=== PATIENT | female | born 1975 | race Caucasian/White ===

== ENCOUNTER 2016-11-08 10:00 | Emergency (ER) | payer OTHER ==
[2016-11-08 10:15] VITALS: BP 131/79; PULSE 91; BMI 21.2
--- NOTE | 2016-11-08 10:20 | PDOC ---
History of Present Illness - History of Present Illness Initial Comments: 11/08/16 10:37 The patient is a 41 year old female with a past medical hx of severe MR, MRSA, nonverbal at baseline who presents to the ED accompanied by family members for evaluation of a possible UTI. Per patients family members, she has been acting as if she is in pain since last night. They report she has had rapid weight loss recently. Family members report she has a hx of UTIs and is acting how she has acted in the past when she has had UTIs. The history is limited secondary to patients MR and nonverbal. <Tierra Ramirez - Last Filed: 11/08/16 10:38> <Moses Chase - Last Filed: 11/08/16 16:17> - General Chief Complaint: Pain Stated Complaint: POSSIBLE UTI Time Seen by Provider: 11/08/16 10:20 Past History <Tierra Ramirez - Last Filed: 11/08/16 10:38> - Past Medical History Anemia: No Asthma: No Cancer: No Cardiac Disorders: No CVA: No COPD: No CHF: No Dementia: No Diabetes: No GI Disorders: No Disorders: No HTN: No Hypercholesterolemia: No Liver Disease: No Psychiatric Problems: Yes (self aggressive behavior) Seizures: Yes (convulsive epilepsy,) Thyroid Disease: No Other medical history: profmattie and physical disab. encephalitis, cataract ,blind, - Surgical History Abdominal Surgery: No Appendectomy: No Cardiac Surgery: No Cholecystectomy: No Lung Surgery: No Neurologic Surgery: Yes Orthopedic Surgery: No - Immunization History Immunization Up to Date: Yes - Psycho/Social/Smoking Cessation Hx Anxiety: No Suicidal Ideation: No Smoking Status: No Smoking History: Never smoked Have you smoked in the past 12 months: No Number of Cigarettes Smoked Daily: 0 Information on smoking cessation initiated: No Hx Alcohol Use: No Drug/Substance Use Hx: No Substance Use Type: None Hx Substance Use Treatment: No <Moses Chase - Last Filed: 11/08/16 16:17> - Past Medical History Allergies/Adverse Reactions: Allergies Allergy/AdvReac Type Severity Reaction Status Date / Time wheat dextrin Allergy Verified 11/08/16 10:09 [From [employer] (wheat dextrin)] Home Medications: Ambulatory Orders Ammonium Lactate Lotion [Lac-Hydrin 12% Lotion -] 1 applic TP BID 08/29/16 Benztropine Mesylate 1 mg PO DAILY 08/29/16 Carbamazepine [Tegretol -] 400 mg PO BID 08/29/16 Clomipramine HCl [Anafranil] 100 mg PO AM 08/29/16 Clomipramine HCl [Anafranil] 150 mg PO HS 08/29/16 Fluphenazine HCl 6 mg PO DAILY 08/29/16 Lamotrigine 400 mg PO HS 08/29/16 Pedi Multivit #22/Vit D3/Vit K [Multivitamins Chewables Tablet] 1 each PO DAILY 08/29/16 Sulfamethoxazole/Trimethoprim [Bactrim Ds -] 1 tab PO BID 08/29/16 Cephalexin [Keflex Suspension] 500 mg PO TID #300 ml 08/30/16 Cephalexin [Keflex Suspension] 500 mg PO TID #300 ml 08/30/16 Polyethylene Glycol 3350 [Miralax (For Bowel Prep) -] 17 gm PO DAILY #1 bottle 11/08/16 Review of Systems - Review of Systems Able to Perform ROS?: No (patient is nonverbal) <Tierra Ramirez - Last Filed: 11/08/16 10:38> *Physical Exam - Vital Signs Last Vital Signs Temp Pulse Resp BP Pulse Ox 98.3 F 91 H 18 131/79 100 11/08/16 10:29 11/08/16 10:09 11/08/16 10:09 11/08/16 10:09 11/08/16 10:09 - Physical Exam Comments: 11/08/16 10:39 GENERAL: Nonverbal. Well developed, well nourished. Awake and alert. HEENT: Normocephalic, atraumatic. PERRLA, EOMI. No conjunctival pallor. Sclera are non- icteric. Moist mucous membranes. Oropharynx is clear. NECK: Supple. Full ROM. No JVD. Carotid pulses 2+ and symmetric, without bruits. No thyromegaly. No lymphadenopathy. CARDIOVASCULAR: Regular rate and rhythm. No murmurs, rubs, or gallops. Distal pulses are 2+ and symmetric. PULMONARY: No evidence of respiratory distress. Lungs clear to auscultation bilaterally. No wheezing, rales or rhonchi. ABDOMINAL: Soft. Non-tender. Non-distended. No rebound or guarding. No organomegaly. Normoactive bowel sounds. MUSCULOSKELETAL Normal range of motion at all joints. No bony deformities or tenderness. No CVA tenderness. EXTREMITIES: No cyanosis. No clubbing. No edema. No calf tenderness. SKIN: Warm and dry. Normal capillary refill. No rashes. No jaundice. NEUROLOGICAL: Alert, awake. Patient is nonverbal at baseline. <Tierra Ramirez - Last Filed: 11/08/16 10:38> - Vital Signs Last Vital Signs Temp Pulse Resp BP Pulse Ox 91 H 18 131/79 100 11/08/16 10:09 11/08/16 10:09 11/08/16 10:09 11/08/16 10:09 <Moses Chase - Last Filed: 11/08/16 16:17> ED Treatment Course - LABORATORY CBC & Chemistry Diagram: 11/08/16 11:35 11/08/16 11:35 <Moses Chase - Last Filed: 11/08/16 16:17> *DC/Admit/Observation/Transfer - Attestations Scribe Attestion: 11/08/16 10:37 Documentation prepared by Tierra Ramirez, acting as medical equipment repair technician for Moses Chase MD <Tierra Ramirez - Last Filed: 11/08/16 10:38> - Discharge Dispostion Admit: No <Moses Chase - Last Filed: 11/08/16 16:17> Diagnosis at time of Disposition: Constipation, Chronic interstitial cystitis - Discharge Dispostion Disposition: [facility] Condition at time of disposition: Stable - Prescriptions Prescriptions: Polyethylene Glycol 3350 [Miralax (For Bowel Prep) -] 17 gm PO DAILY #1 bottle - Referrals Referrals: Adrien Hernandez MD [Staff Physician] - - Patient Instructions Additional Instructions: Patient's pain seems to stem most likely from her constipation. Patient will need to take miralax daily to help with constipation. The patient has also had unintentional weight loss (despite normal appetite) and should have GI evaluation for possible EGD/colonoscopy and weight loss evaluation as outpatient. If the patient develops fevers, chills, altered mental status please bring her to the ER. Please follow up with Dr. Gross within a week.
[2016-11-08 10:29] VITALS: TEMP 98.3
[2016-11-08] MEDS ORDERED: SODIUM CHLORIDE 1,000 ML IV SCH (10:30)
[2016-11-08] MEDS ORDERED: morphine CARPU-JECT 4 MG/1 ML DISP.SYRIN IVPUSH ONE (11:20)
[2016-11-08 11:48] LABS: BASOPHIL 0.6 % (0-2.0); EOSINOPHIL 4.8 % (0-4.5); MCH 29.2 pg (25.7-33.7); MCHC 33.2 g/dl (32.0-36.0); MEAN CELL VOLUME 87.9 fl (80-96); MEAN PLT VOLUME 10.6 fl (7.5-11.1); NEUTROPHILS 74.6 % (42.8-82.8); PLATELET COUNT 197 K/MM3 (134-434); RDW 13.5 % (11.6-15.6); WHITE BLOOD COUNT 9.6 K/mm3 (4.0-10.0)
[2016-11-08 11:50] LABS: URINE APPEARANCE CLEAR; URINE BILIRUBIN NEGATIVE (NEGATIVE); URINE BLOOD NEGATIVE (NEGATIVE); URINE COLOR YELLOW; URINE GLUCOSE (UA) NEGATIVE (NEGATIVE); URINE KETONE NEGATIVE (NEGATIVE); URINE LEUK ESTERASE NEGATIVE (NEGATIVE); URINE NITRITE POSITIVE (NEGATIVE); URINE PROTEIN NEGATIVE (NEGATIVE); URINE UROBILINOGEN NEGATIVE E.U./dl (0.2-1.0)
[2016-11-08 11:58] LABS: URINE BACTERIA RARE /hpf (NONE SEEN); URINE MUCUS RARE; URINE RBC 1 /hpf (0-3); URINE WBC 1 /hpf (3-5)
[2016-11-08 12:04] LABS: ALBUMIN 3.2 g/dl (3.4-5.0); ANION GAP 9 (8-16); BILIRUBIN,TOTAL 0.1 mg/dL (0.2-1.0); CALCIUM 8.1 mg/dL (8.5-10.1); CO2 29 mmol/L (21-32); CREATININE 0.6 mg/dL (0.55-1.02); GLUCOSE,RANDOM 119 mg/dL (74-106); SGOT/AST 22 U/L (15-37); SGPT/ALT 27 U/L (12-78); TOT PROT 6.3 g/dl (6.4-8.2)
[2016-11-08 12:05] LABS: ALK PHOS 97 U/L (45-117)
[2016-11-08] MEDS ORDERED: morphine CARPU-JECT 4 MG/1 ML DISP.SYRIN ONE (12:20)
[2016-11-08] MEDS ORDERED: SODIUM CHLORIDE 1,000 ML IV STA (12:30)
[2016-11-08] MEDS ORDERED: CEFTRIAXONE 1,000 MG in DEXTROSE 5%-WATER - 50 ML IVPB ONE (12:54)
[2016-11-08] MEDS ORDERED: CEFTRIAXONE 50 ML ONE (13:30)
[2016-11-08] MEDS ORDERED: LACTULOSE 20 GM/30 ML UDC (FOR ORAL USE ONLY) PO ONE (14:30)
[2016-11-08] MEDS ORDERED: MINERAL OIL ENEMA 133 ML ENEMA PR ONE (14:30)
--- NOTE | 2016-11-08 14:40 | PN ---
Teaching Attending Note Name of Resident: Charly Calles ATTENDING PHYSICIAN STATEMENT I saw and evaluated the patient. I reviewed the resident's note and discussed the case with the resident. I agree with the resident's findings and plan as documented. SUBJECTIVE: seen and evaluated at the bedside OBJECTIVE: non-verbal due to mental retardation; rocking back and forth and occasionally hitting herself in the head ASSESSMENT AND PLAN: 41 year old woman with severe mental retardation (non-verbal) sent from [facility] for evaluation of supposed pain -[facility] staff who accompanied pt state that pt's behavior over the past day or so is indicative of when she is in pain -was treated with ceftriaxone by ED for supposed UTI as pt has had them in the past -spoke with [employer] at [facility] who stated that pt was recently treated with abx for uti as at that time pt had elevated WBC and cloudy appearance to urine -at this time pt has no fever, no White count, and U/A is not suggestive of UTI -on further history [facility] staff who accompanied pt state that pt has had bad constipation for the past year which does not alleviate unless enema is given; pt has mild distention and since this is the only abnormality found on exam assumption is that this may be cause of discomfort -on further history, pt has had weight loss with dark stools despite having no changes in apatite; spoke with [facility] staff and with [employer] at [facility] and recommendation is for outpatient GI evaluation for endoscopy -will repeat lactate now after receiving IVF and discharge back to [facility] today if decreases
--- NOTE | 2016-11-08 15:23 | HP ---
CHIEF COMPLAINT: pain PCP: Dr. Gross ([facility]) HISTORY OF PRESENT ILLNESS: 41 y/o F with MR and is nonverbal presents to ER from [facility] for abnormal behavior that was seen in the past when she had a UTI. History obtained by aides at bedside. Pt was crying which is unusual for her and hitting herself more frequently (at baseline does hit herself). Aide did not notice any cloudy urine as she did in the past when pt had UTI. No fevers noted. Pt has been losing weight over last 2 months - approximately 15 pounds despite normal appetite. She has also been constipated over last two months and only has BMs after getting enemas. No past surgeries as per aide. ER course was notable for: (1) UA, ceftriaxone (2) (3) Recent Travel: non-contributory PAST MEDICAL HISTORY: Mental retardation, nonverbal PAST SURGICAL HISTORY: No surgeries Social History: Smoking: non-contributory Alcohol: non-contributory Drugs: non-contributory Family History: unknown Allergies wheat dextrin [From [employer] (wheat dextrin)] Allergy (Verified 11/08/16 10:09) HOME MEDICATIONS: Home Medications Medication Instructions Recorded Ammonium Lactate Lotion 1 applic TP BID 08/29/16 [Lac-Hydrin 12% Lotion -] Benztropine Mesylate 1 mg PO DAILY 08/29/16 Carbamazepine [Tegretol -] 400 mg PO BID 08/29/16 Clomipramine HCl [Anafranil] 100 mg PO AM 08/29/16 Clomipramine HCl [Anafranil] 150 mg PO HS 08/29/16 Fluphenazine HCl 6 mg PO DAILY 08/29/16 Lamotrigine 400 mg PO HS 08/29/16 Pedi Multivit #22/Vit D3/Vit K 1 each PO DAILY 08/29/16 [Multivitamins Chewables Tablet] Sulfamethoxazole/Trimethoprim 1 tab PO BID 08/29/16 [Bactrim Ds -] Cephalexin [Keflex Suspension] 500 mg PO TID #300 ml 08/30/16 Cephalexin [Keflex Suspension] 500 mg PO TID #300 ml 08/30/16 REVIEW OF SYSTEMS CONSTITUTIONAL: Absent: fever, chills, diaphoresis, generalized weakness, malaise, loss of appetite, weight change HEENT: Absent: rhinorrhea, nasal congestion, throat pain, throat swelling, difficulty swallowing, mouth swelling, ear pain, eye pain, visual changes CARDIOVASCULAR: Absent: chest pain, syncope, palpitations, irregular heart rate, lightheadedness , peripheral edema RESPIRATORY: Absent: cough, shortness of breath, dyspnea with exertion, orthopnea, wheezing, stridor, hemoptysis GASTROINTESTINAL: Absent: abdominal pain, abdominal distension, nausea, vomiting, diarrhea, constipation, melena, hematochezia GENITOURINARY: Absent: dysuria, frequency, urgency, hesitancy, hematuria, flank pain, genital pain MUSCULOSKELETAL: Absent: myalgia, arthralgia, joint swelling, back pain, neck pain SKIN: Absent: rash, itching, pallor HEMATOLOGIC/IMMUNOLOGIC: Absent: easy bleeding, easy bruising, lymphadenopathy, frequent infections ENDOCRINE: Absent: unexplained weight gain, unexplained weight loss, heat intolerance, cold intolerance NEUROLOGIC: Absent: headache, focal weakness or paresthesias, dizziness, unsteady gait, seizure, mental status changes, bladder or bowel incontinence PSYCHIATRIC: Absent: anxiety, depression, suicidal or homicidal ideation, hallucinations. PHYSICAL EXAMINATION Vital Signs - 24 hr 11/08/16 11/08/16 10:09 10:29 Temperature 98.3 F Pulse Rate 91 H Respiratory 18 Rate Blood Pressure 131/79 O2 Sat by Pulse 100 Oximetry (%) GENERAL: Awake, alert, MR HEAD: Erythema at L forehead from pt hitting herself EYES: Pupils equal, round and reactive to light, extraocular movements intact, sclera anicteric, conjunctiva clear. No lid lag. EARS, NOSE, THROAT: Moist mucous membranes. NECK: Normal range of motion, supple LUNGS: Breath sounds equal, clear to auscultation bilaterally. No wheezes, and no crackles. No accessory muscle use. HEART: Regular rate and rhythm, normal S1 and S2 without murmur, rub or gallop. ABDOMEN: Soft, nontender, mild distention, normoactive bowel sounds, no guarding , no rebound, no masses. MUSCULOSKELETAL: Normal range of motion at all joints. No bony deformities or tenderness. No CVA tenderness. LOWER EXTREMITIES: 2+ pulses, warm, well-perfused. No peripheral edema. NEUROLOGICAL: Non-verbal. Gait not observed. PSYCHIATRIC: mental retardation SKIN: Warm, dry, normal turgor. Laboratory Results - last 24 hr 0211/08/16 11/08/16 11:35 11:35 11:35 WBC 9.6 RBC 4.42 Hgb 12.9 Hct 38.9 MCV 87.9 MCHC 33.2 RDW 13.5 Plt Count 197 MPV 10.6 Neutrophils % 74.6 Lymphocytes % 12.3 D Monocytes % 7.7 Eosinophils % 4.8 H Basophils % 0.6 Sodium 142 Potassium 4.2 Chloride 104 Carbon Dioxide 29 Anion Gap 9 BUN 8 D Creatinine 0.6 Creat Clearance w eGFR > 60 Random Glucose 119 H D Lactic Acid Calcium 8.1 L Total Bilirubin 0.1 L D AST 22 ALT 27 Alkaline Phosphatase 97 D Total Protein 6.3 L Albumin 3.2 L Urine Color Yellow Urine Appearance Clear Urine pH 5.0 Ur Specific [place] 1.024 Urine Protein Negative Urine Glucose (UA) Negative Urine Ketones Negative Urine Blood Negative Urine Nitrite Positive Urine Bilirubin Negative Urine Urobilinogen Negative Ur Leukocyte Esterase Negative Urine RBC 1 Urine WBC 1 Urine Bacteria Rare Urine Mucus Rare Urine HCG, Qual Negative 11/08/16 11:35 WBC RBC Hgb Hct MCV MCHC RDW Plt Count MPV Neutrophils % Lymphocytes % Monocytes % Eosinophils % Basophils % Sodium Potassium Chloride Carbon Dioxide Anion Gap BUN Creatinine Creat Clearance w eGFR Random Glucose Lactic Acid 2.107 H* Calcium Total Bilirubin AST ALT Alkaline Phosphatase Total Protein Albumin Urine Color Urine Appearance Urine pH Ur Specific [place] Urine Protein Urine Glucose (UA) Urine Ketones Urine Blood Urine Nitrite Urine Bilirubin Urine Urobilinogen Ur Leukocyte Esterase Urine RBC Urine WBC Urine Bacteria Urine Mucus Urine HCG, Qual ASSESSMENT/PLAN: 41 y/o F with mental retardation who is non-verbal from [facility] presented to ER with pain and unusual behavior similar to behavior when pt had UTI. UA was negative for UTI but pt has been constipated and losing weight over last 2 months despite regular appetite. -pain secondary to UTI -unlikely to be UTI as UA is negative, no white count, afebrile -urine not cloudy as per aide, who noted that it was cloudy last time pt had UTI -received one dose of ceftriaxone in ER -lactic acid initially 2.1, after fluid bolus lactic acid is 1.2 -pain secondary to constipation -more likely -constipated over last two months, requires enemas for BMs, mild abd distention -lactulose 20 g once ordered, miralax once ordered, miineral oil enema -to be started on miralax daily -GI eval as outpatient, will most likely require egd/colonoscopy to eval for weight loss -dispo: -lactic acid normalized after fluid bolus, unlikely to be uti, pt's pain most likely due to constipation/GI issue. Discharge soon and will require GI eval as outpatient. Problem List - Problem (1) Constipation Code(s): K59.00 - CONSTIPATION, UNSPECIFIED (2) Abdominal pain Code(s): R10.9 - UNSPECIFIED ABDOMINAL PAIN (3) Mental retardation Code(s): F79 - UNSPECIFIED INTELLECTUAL DISABILITIES (4) Weight loss, non-intentional Code(s): R63.4 - ABNORMAL WEIGHT LOSS Visit type - Emergency Visit Emergency Visit: Yes Care time: The patient presented to the Emergency Department on the above date and was hospitalized for further evaluation of their emergent condition. - New Patient This patient is new to me today: Yes Date on this admission: 11/08/16 - Critical Care Critical Care patient: No
[2016-11-08] MEDS ORDERED: POLYETHYLENE GLYCOL 3350 119 GM BTL PO ONE (15:41)
--- NOTE | 2016-11-08 15:51 | DS ---
Physical Exam: SUBJECTIVE: Patient seen and examined OBJECTIVE: Vital Signs Period Temp Pulse Resp BP Sys/Amaral Pulse Ox Last 24 Hr 98.3 F 91 18 131/79 100 PHYSICAL EXAM GENERAL: The patient is awake, alert, and fully oriented, in no acute distress. HEAD: Normal with no signs of trauma. EYES: PERRL, extraocular movements intact, sclera anicteric, conjunctiva clear. ENT: Ears normal, nares patent, oropharynx clear without exudates, moist mucous membranes. NECK: Trachea midline, full range of motion, supple. LUNGS: Breath sounds equal, clear to auscultation bilaterally, no wheezes, no crackles, no accessory muscle use. HEART: Regular rate and rhythm, S1, S2 without murmur, rub or gallop. ABDOMEN: Soft, nontender, nondistended, normoactive bowel sounds, no guarding, no rebound, no hepatosplenomegaly, no masses. EXTREMITIES: 2+ pulses, warm, well-perfused, no edema. NEUROLOGICAL: Cranial nerves II through XII grossly intact. Normal speech, gait not observed. PSYCH: Normal mood, normal affect. SKIN: Warm, dry, normal turgor, no rashes or lesions noted. LABS Laboratory Results - last 24 hr 11/08/16 11/08/16 11/08/16 11:35 11:35 11:35 WBC 9.6 RBC 4.42 Hgb 12.9 Hct 38.9 MCV 87.9 MCHC 33.2 RDW 13.5 Plt Count 197 MPV 10.6 Neutrophils % 74.6 Lymphocytes % 12.3 D Monocytes % 7.7 Eosinophils % 4.8 H Basophils % 0.6 Sodium 142 Potassium 4.2 Chloride 104 Carbon Dioxide 29 Anion Gap 9 BUN 8 D Creatinine 0.6 Creat Clearance w eGFR > 60 Random Glucose 119 H D Lactic Acid Calcium 8.1 L Total Bilirubin 0.1 L D AST 22 ALT 27 Alkaline Phosphatase 97 D Total Protein 6.3 L Albumin 3.2 L Urine Color Yellow Urine Appearance Clear Urine pH 5.0 Ur Specific [place] 1.024 Urine Protein Negative Urine Glucose (UA) Negative Urine Ketones Negative Urine Blood Negative Urine Nitrite Positive Urine Bilirubin Negative Urine Urobilinogen Negative Ur Leukocyte Esterase Negative Urine RBC 1 Urine WBC 1 Urine Bacteria Rare Urine Mucus Rare Urine HCG, Qual Negative 11/08/16 11/08/16 11:35 14:36 WBC RBC Hgb Hct MCV MCHC RDW Plt Count MPV Neutrophils % Lymphocytes % Monocytes % Eosinophils % Basophils % Sodium Potassium Chloride Carbon Dioxide Anion Gap BUN Creatinine Creat Clearance w eGFR Random Glucose Lactic Acid 2.107 H* 1.205 Calcium Total Bilirubin AST ALT Alkaline Phosphatase Total Protein Albumin Urine Color Urine Appearance Urine pH Ur Specific [place] Urine Protein Urine Glucose (UA) Urine Ketones Urine Blood Urine Nitrite Urine Bilirubin Urine Urobilinogen Ur Leukocyte Esterase Urine RBC Urine WBC Urine Bacteria Urine Mucus Urine HCG, Qual HOSPITAL COURSE: Date of Admission:11/08/16 Date of Discharge: 11/08/16 41 y/o F with MR and is nonverbal presents to ER from [place] for abnormal behavior that was seen in the past when she had a UTI. History obtained by aides at bedside. Pt was crying which is unusual for her and hitting herself more frequently (at baseline does hit herself). Aide did not notice any cloudy urine as she did in the past when pt had UTI. No fevers noted. Pt has been losing weight over last 2 months - approximately 15 pounds despite normal appetite. She has also been constipated over last two months and only has BMs after getting enemas. No past surgeries as per aide. Pt was given lactulose, miralax, and mineral oil enema. Pain was most likely secondary to constipation and unlikely to be UTI as UA, WBC were both normal and pt was afebrile and appearance of urine was inconsistent with last UTI. Pt will need GI eval as outpatient for weight loss which was explained to aides at bedside and MEDICAL BILLING COORDINATOR at [facility] over phone. MEDICAL BILLING COORDINATOR was agreeable with plan. Pt was discharged with miralax to be used daily. Minutes to complete discharge: 35 Discharge Summary Reason For Visit: POSSIBLE UTI Current Active Problems Abdominal pain (Acute) Weight loss, non-intentional (Acute) Constipation (Chronic) Mental retardation (Chronic) Condition: Stable - Instructions Diet, Activity, Other Instructions: Patient's pain seems to stem most likely from her constipation. Patient will need to take miralax daily to help with constipation. The patient has also had unintentional weight loss (despite normal appetite) and should have GI evaluation for possible EGD/colonoscopy and weight loss evaluation as outpatient. If the patient develops fevers, chills, altered mental status please bring her to the ER. Please follow up with Dr. Gross within a week. Referrals: David Degroot DO [Staff Physician] - Adrien Hernandez MD [Staff Physician] - [facility] - Home Medications Comprehensive Discharge Medication List: Ambulatory Orders Ammonium Lactate Lotion [Lac-Hydrin 12% Lotion -] 1 applic TP BID 08/29/16 Benztropine Mesylate 1 mg PO DAILY 08/29/16 Carbamazepine [Tegretol -] 400 mg PO BID 08/29/16 Clomipramine HCl [Anafranil] 100 mg PO AM 08/29/16 Clomipramine HCl [Anafranil] 150 mg PO HS 08/29/16 Fluphenazine HCl 6 mg PO DAILY 08/29/16 Lamotrigine 400 mg PO HS 08/29/16 Pedi Multivit #22/Vit D3/Vit K [Multivitamins Chewables Tablet] 1 each PO DAILY 08/29/16 Sulfamethoxazole/Trimethoprim [Bactrim Ds -] 1 tab PO BID 08/29/16 Cephalexin [Keflex Suspension] 500 mg PO TID #300 ml 08/30/16 Cephalexin [Keflex Suspension] 500 mg PO TID #300 ml 08/30/16 Polyethylene Glycol 3350 [Miralax (For Bowel Prep) -] 17 gm PO DAILY #1 bottle 11/08/16 Problem List - Problems (1) Constipation Code(s): K59.00 - CONSTIPATION, UNSPECIFIED (2) Abdominal pain Code(s): R10.9 - UNSPECIFIED ABDOMINAL PAIN (3) Mental retardation Code(s): F79 - UNSPECIFIED INTELLECTUAL DISABILITIES (4) Weight loss, non-intentional Code(s): R63.4 - ABNORMAL WEIGHT LOSS This patient is new to me today: Yes Date on this admission: 11/08/16 Emergency Visit: Yes Care time: The patient presented to the Emergency Department on the above date and was hospitalized for further evaluation of their emergent condition. Critical Care patient: No - Discharge Referral Referred to [facility] No
== END 2016-11-08 17:08 ==
LOC: JER 10:00
PROC: 3E0337Z Introduction of Electrolytic and Water Balance Substance into Peripheral Vein, Percutaneous Approach (ICD-10-PCS; principal; 2016-11-08)
PROC: 3E033NZ Introduction of Analgesics, Hypnotics, Sedatives into Peripheral Vein, Percutaneous Approach (ICD-10-PCS; 2016-11-08)
PROC: 3E03329 Introduction of Other Anti-infective into Peripheral Vein, Percutaneous Approach (ICD-10-PCS; 2016-11-08)
DX: K59.00 Constipation, unspecified (principal); Z68.21 Body mass index [BMI] 21.0-21.9, adult; F73 Profound intellectual disabilities
CPT/HCPCS: 36415; 80053; 81003; 81015; 83605; 84703; 85025; 87040; 87086; 87186; 96361; 96365; 96374; 99281-25

== ENCOUNTER 2016-11-13 13:41 | Emergency (ER) | payer OTHER ==
[2016-11-13 14:07] VITALS: BP 119/79; PULSE 68; TEMP 97.6; BMI 21.9
--- NOTE | 2016-11-13 14:38 | PDOC ---
Attending Attestation - Resident Resident Name: Kiara Turner - ED Attending Attestation I have performed the following: I have examined & evaluated the patient, The case was reviewed & discussed with the resident, I agree w/resident's findings & plan, Exceptions are as noted - HPI HPI: 11/13/16 16:16 The patient is a 41-year-old female, nonverbal, resident of a shelter, who presents to the emergency department because her shelter staff noted her to be less active than usual, and hesitant to walk. They deny noting any trauma. They deny any vomiting, diarrhea, rash, fever. - Physicial Exam PE: 11/13/16 16:17 She is well-appearing and in no acute distress She moves all 4 She is alert, awake, interactive - Medical Decision Making 11/13/16 16:17 Labs noted Staff states that she is at her baseline I think further workup will not convey benefit I think neuro imaging would require sedation, and the risks of this would outweigh the benefits Given that she is back to her baseline, we will discharge her, with instructions to return if she develops any new symptoms Clinical impression: Weakness; resolved I discussed the physical exam findings, ancillary test results and final diagnoses with the patient. I answered all of the patient's questions. The patient was satisfied with the care received and felt comfortable with the discharge plan and treatment plan. The patient will call their primary care physician within 24 hours to arrange follow-up and will return to the Emergency Department with any new, persistent or worsening symptoms.
--- NOTE | 2016-11-13 14:53 | PDOC ---
History of Present Illness - History of Present Illness Initial Comments: 11/13/16 14:58 The patient is a 41 year old female with a past medical hx of severe MR, MRSA, nonverbal at baseline who presents to the ED with her aide for evaluation of weakness. She reports today she got a call from the [facility] that she appears to have weakness in her legs. Per the patient's aide, she is usually able to walk well with the help of one person. The aide states today she is unable to walk as well as she usually does. She states she needs a lot more assistance than usual and is very unsteady. The patients aide denies any fever, changes in urination, or changes in bowel movements. The history is limited because the patient is nonverbal at baseline. PCP: Dr. Samuel Mitchell: The patient lives at [facility] <Tierra Ramirez - Last Filed: 11/13/16 15:11> <Kiara Turner - Last Filed: 11/13/16 16:29> - General Chief Complaint: Weakness Stated Complaint: LEG PAIN Time Seen by Provider: 11/13/16 14:38 Past History <Tierra Ramirez - Last Filed: 11/13/16 15:11> - Past Medical History Anemia: No Asthma: No Cancer: No Cardiac Disorders: No CVA: No COPD: No CHF: No Dementia: No Diabetes: No GI Disorders: No Disorders: No HTN: No Hypercholesterolemia: No Liver Disease: No Psychiatric Problems: Yes (self aggressive behavior) Seizures: Yes (convulsive epilepsy,) Thyroid Disease: No Other medical history: CEREBRAL PALSY,PROFOUND INTELLECTUAL DISABILITY - Surgical History Abdominal Surgery: No Appendectomy: No Cardiac Surgery: No Cholecystectomy: No Lung Surgery: No Neurologic Surgery: Yes Orthopedic Surgery: No - Immunization History Immunization Up to Date: Yes - Psycho/Social/Smoking Cessation Hx Anxiety: No Suicidal Ideation: No Smoking Status: No Smoking History: Never smoked Have you smoked in the past 12 months: No Number of Cigarettes Smoked Daily: 0 Hx Alcohol Use: No Drug/Substance Use Hx: No Substance Use Type: None Hx Substance Use Treatment: No <Kiara Turner - Last Filed: 11/13/16 16:29> - Past Medical History Allergies/Adverse Reactions: Allergies Allergy/AdvReac Type Severity Reaction Status Date / Time wheat dextrin Allergy Verified 11/13/16 13:54 [From Es (wheat dextrin)] Home Medications: Ambulatory Orders Ammonium Lactate Lotion [Lac-Hydrin 12% Lotion -] 1 applic TP BID 08/29/16 Benztropine Mesylate 1 mg PO DAILY 08/29/16 Carbamazepine [Tegretol -] 400 mg PO BID 08/29/16 Clomipramine HCl [Anafranil] 100 mg PO AM 08/29/16 Clomipramine HCl [Anafranil] 150 mg PO HS 08/29/16 Fluphenazine HCl 6 mg PO DAILY 08/29/16 Lamotrigine 400 mg PO HS 08/29/16 Pedi Multivit #22/Vit D3/Vit K [Multivitamins Chewables Tablet] 1 each PO DAILY 08/29/16 Sulfamethoxazole/Trimethoprim [Bactrim Ds -] 1 tab PO BID 08/29/16 Cephalexin [Keflex Suspension] 500 mg PO TID #300 ml 08/30/16 Cephalexin [Keflex Suspension] 500 mg PO TID #300 ml 08/30/16 Polyethylene Glycol 3350 [Miralax (For Bowel Prep) -] 17 gm PO DAILY #1 bottle 11/08/16 Review of Systems - Review of Systems Able to Perform ROS?: No (Patient is nonverbal) <Tierra Ramirez - Last Filed: 11/13/16 15:11> *Physical Exam - Vital Signs Last Vital Signs Temp Pulse Resp BP Pulse Ox 97.6 F 68 19 119/79 11/13/16 13:54 11/13/16 13:54 11/13/16 13:54 11/13/16 13:54 - Physical Exam Comments: 11/13/16 15:09 GENERAL: +Nonverbal. Well developed, well nourished. Awake and alert. HEENT: +Redness on the forehead. No pallor, no icterus. NECK: Supple. Full ROM. No JVD. Carotid pulses 2+ and symmetric, without bruits. No thyromegaly. No lymphadenopathy. CARDIOVASCULAR: Regular rate and rhythm. No murmurs, rubs, or gallops. Distal pulses are 2+ and symmetric. PULMONARY: No evidence of respiratory distress. Lungs clear to auscultation bilaterally. No wheezing, rales or rhonchi. ABDOMINAL: Soft. Non-tender. Non-distended. No rebound or guarding. No organomegaly. Normoactive bowel sounds. MUSCULOSKELETAL +Able to stand with the help of two aides. Unable to walk with support, dragging her feet. Normal range of motion at all joints. No bony deformities or tenderness. No CVA tenderness. EXTREMITIES: +Redness over the right dorsum of hand. No cyanosis. No clubbing. No edema. No calf tenderness. SKIN: Warm and dry. Normal capillary refill. No rashes. No jaundice. NEUROLOGICAL: Alert, awake. Patient is nonverbal at baseline. PSYCHIATRIC: +MR <Tierra Ramirez - Last Filed: 11/13/16 15:11> - Vital Signs Last Vital Signs Temp Pulse Resp BP Pulse Ox 97.6 F 68 19 119/79 11/13/16 13:54 11/13/16 13:54 11/13/16 13:54 11/13/16 13:54 <Kiara Turner - Last Filed: 11/13/16 16:29> ED Treatment Course - LABORATORY CBC & Chemistry Diagram: 11/13/16 15:15 11/13/16 15:15 <Kiara Turner - Last Filed: 11/13/16 16:29> Medical Decision Making - Medical Decision Making 11/13/16 15:00 Patient seen and examined at bed side. Vitals noted unremarkable. Spoke with Asher, the nurse from [facility] to get more information about the patient. She has been taking care of the patient since 10 years. A/c to her, patient had unsteady gait was unable to stand with support which was unusual for her. Patient also had redness over the left wrist, nose and forehead by hitting herself. It is usual for her to hit herself and wears a helmet to prevent from any injuries. She mentions patient has h/o constipation. Asher ([phone]) Will order CBC, CMP, Lipase, UA, Urine culture 11/13/16 15:26 Patient reassessed. At baseline. Reviewed old chart, patient recently discharged, urine culture was positive for E.coli but most likely it was just colonization and was treated for constipation. 11/13/16 16:16 Patient reassessed. Vitals, WNL. Health aid at bed side and reports patient is at baseline. Labs notes, all within normal limits. Weakness has resolved. Patient is hemodyanamically stable and can be discharged. Spoke with the healthaid at bed side and explained about the investigation and plan of care we offered. She verbalized understanding. Patient's health aid has been explained that if any symptoms arise bring her to the Emergency Department immediately. Case seen and discussed with Dr. Reynaga 11/13/16 16:25 <Kiara Turner - Last Filed: 11/13/16 16:29> *DC/Admit/Observation/Transfer <Tierra Ramirez - Last Filed: 11/13/16 15:11> - Discharge Dispostion Admit: No <Kiara Turner - Last Filed: 11/13/16 16:29> Diagnosis at time of Disposition: Weakness - Discharge Dispostion Disposition: HOME Condition at time of disposition: Guarded - Patient Instructions Printed Discharge Instructions: DI for Muscle Weakness Additional Instructions: Health aid has been explained about the patients current situation. Lab works are within normal limits. Please be advised that you should bring the patient immediately to the Emergency Department if any new symptoms develop. Visit the primary doctor as soon as possible.
[2016-11-13 15:31] LABS: BASOPHIL 0.7 % (0-2.0); MCH 29.1 pg (25.7-33.7); MCHC 33.3 g/dl (32.0-36.0); MEAN CELL VOLUME 87.4 fl (80-96); MEAN PLT VOLUME 10.5 fl (7.5-11.1); NEUTROPHILS 64.1 % (42.8-82.8); PLATELET COUNT 244 K/MM3 (134-434); RDW 13.8 % (11.6-15.6); WHITE BLOOD COUNT 10.7 K/mm3 (4.0-10.0)
[2016-11-13 16:00] LABS: ALBUMIN 3.4 g/dl (3.4-5.0); ANION GAP 10 (8-16); BILIRUBIN,TOTAL 0.1 mg/dL (0.2-1.0); CALCIUM 8.9 mg/dL (8.5-10.1); CO2 25 mmol/L (21-32); CREATININE 0.7 mg/dL (0.55-1.02); GLUCOSE,RANDOM 113 mg/dL (74-106); SGOT/AST 14 U/L (15-37); SGPT/ALT 26 U/L (12-78); TOT PROT 6.7 g/dl (6.4-8.2)
[2016-11-13 16:01] LABS: ALK PHOS 97 U/L (45-117)
[2016-11-13 16:04] LABS: URINE APPEARANCE CLOUDY; URINE BILIRUBIN NEGATIVE (NEGATIVE); URINE BLOOD NEGATIVE (NEGATIVE); URINE COLOR YELLOW; URINE GLUCOSE (UA) NEGATIVE (NEGATIVE); URINE KETONE NEGATIVE (NEGATIVE); URINE LEUK ESTERASE NEGATIVE (NEGATIVE); URINE NITRITE NEGATIVE (NEGATIVE); URINE PROTEIN NEGATIVE (NEGATIVE); URINE UROBILINOGEN NEGATIVE E.U./dl (0.2-1.0)
== END 2016-11-13 16:46 | disposition home or self-care (01) ==
LOC: JER 13:41
DX: R53.1 Weakness (principal); G80.8 Other cerebral palsy; F91.1 Conduct disorder, childhood-onset type; F73 Profound intellectual disabilities; G40.909 Epilepsy, unspecified, not intractable, without status epilepticus; R47.01 Aphasia
CPT/HCPCS: 36415; 80053; 81003; 83690; 85025; 87086; 99282-25

== ENCOUNTER 2016-11-15 15:14 | Emergency (ER) | payer OTHER ==
[2016-11-15 15:25] VITALS: BP 116/55; PULSE 84; BMI 18.6
--- NOTE | 2016-11-15 17:13 | PDOC ---
History of Present Illness - General Chief Complaint: Injury Stated Complaint: SELF-ABUSIVE Time Seen by Provider: 11/15/16 16:59 History Source: Patient, Primary Care Provider Exam Limitations: Clinical Condition - History of Present Illness Initial Comments: 11/15/16 17:15 Patient was brought by 2 care providers from [facility] for evaluation of crying out in self abusive behavior. Care providers who know patient well deny any changes in her behavior, any evidence of pain, or problems. Report that when patient has menstrual cramps are able to tell as patient has demonstration of abdominal cramping. States today there is been no evidence of any changes in her behavior, no fever, cough ear or throat pain, no deformities or reproduced tenderness to any extremity or torso. Patient is profoundly MR and nonverbal, has chronic history of self abusive behavior and wears protective helmet and extremity guards. There is no reported fall or other trauma. States there is some been some administrative changes and perdiem staff but are not as familiar with patient. States was in the emergency department a few times this past few weeks one related to constipation which is been resolved , patient had normal bowel movement this morning. 1 for generalized weakness which care providers do not observe 11/15/16 17:18 Method of Injury: Yes: unknown Modifying Factors: improves with: None Past History - Travel Traveled outside of the country in the last 30 days: No Close contact w/someone who was outside of country & ill: No - Past Medical History Allergies/Adverse Reactions: Allergies Allergy/AdvReac Type Severity Reaction Status Date / Time wheat dextrin Allergy Verified 11/15/16 15:21 [From Benefiber (wheat dextrin)] Home Medications: Ambulatory Orders Ammonium Lactate Lotion [Lac-Hydrin 12% Lotion -] 1 applic TP BID 08/29/16 Benztropine Mesylate 1 mg PO DAILY 08/29/16 Carbamazepine [Tegretol -] 400 mg PO BID 08/29/16 Clomipramine HCl [Anafranil] 100 mg PO AM 08/29/16 Clomipramine HCl [Anafranil] 150 mg PO HS 08/29/16 Fluphenazine HCl 6 mg PO DAILY 08/29/16 Lamotrigine 400 mg PO HS 08/29/16 Pedi Multivit #22/Vit D3/Vit K [Multivitamins Chewables Tablet] 1 each PO DAILY 08/29/16 Sulfamethoxazole/Trimethoprim [Bactrim Ds -] 1 tab PO BID 08/29/16 Cephalexin [Keflex Suspension] 500 mg PO TID #300 ml 08/30/16 Cephalexin [Keflex Suspension] 500 mg PO TID #300 ml 08/30/16 Polyethylene Glycol 3350 [Miralax (For Bowel Prep) -] 17 gm PO DAILY #1 bottle 11/08/16 Anemia: No Asthma: No Cancer: No Cardiac Disorders: No CVA: No COPD: No CHF: No Dementia: No Diabetes: No GI Disorders: No Disorders: No HTN: No Hypercholesterolemia: No Liver Disease: No Psychiatric Problems: Yes (self aggressive behavior) Seizures: Yes (convulsive epilepsy,) Thyroid Disease: No - Surgical History Abdominal Surgery: No Appendectomy: No Cardiac Surgery: No Cholecystectomy: No Lung Surgery: No Neurologic Surgery: Yes Orthopedic Surgery: No - Immunization History Immunization Up to Date: Yes - Psycho/Social/Smoking Cessation Hx Anxiety: No Suicidal Ideation: No Smoking Status: No Smoking History: Never smoked Have you smoked in the past 12 months: No Number of Cigarettes Smoked Daily: 0 Information on smoking cessation initiated: No Hx Alcohol Use: No Drug/Substance Use Hx: No Substance Use Type: None Hx Substance Use Treatment: No Trauma Specific PMHX - Complaint Specific PMHX Back Injury: No Neck Injury: No Review of Systems - Review of Systems Able to Perform ROS?: Yes Is the patient limited Ukrainian proficient: Yes Constitutional: Yes: See HPI. No: Symptoms Reported, Chills, Fever, Loss of Appetite, Malaise HEENTM: Yes: See HPI. No: Symptoms Reported, Nose Congestion, Difficulty Swallowing Respiratory: Yes: See HPI. No: Symptoms reported, Cough, Shortness of Breath, Wheezing : Yes: See HPI, Other (is incontinent but has not). No: Symptoms Reported Musculoskeletal: Yes: See HPI. No: Symptoms Reported, Back Pain, Joint Pain, Joint Swelling, Muscle Pain, Muscle Weakness, Neck Pain Integumentary: Yes: See HPI. No: Symptoms Reported, Bruising, Change in Hair/ Nails, Erythema, Flushing All Other Systems: Reviewed and Negative *Physical Exam - Vital Signs Last Vital Signs Temp Pulse Resp BP Pulse Ox 84 18 116/55 99 11/15/16 15:18 11/15/16 15:18 11/15/16 15:18 11/15/16 15:18 - Physical Exam General Appearance: Yes: Nourished, Appropriately Dressed. No: Apparent Distress HEENT: negative: CHAD (bilateral blindness) Neck: positive: Supple Respiratory/Chest: positive: Lungs Clear, Normal Breath Sounds Gastrointestinal/Abdominal: positive: Soft. negative: Tender (no reproduced tenderness with palpation, no mass or deformity to abdomen, abdomen is soft), Distended, Guarding, Rebound, Tenderness Integumentary: positive: Dry, Warm, Pale Neurologic: positive: Alert, Normal Mood/Affect (responds appropriately to care providers and primarily cooperative with exam), Normal Response *DC/Admit/Observation/Transfer Diagnosis at time of Disposition: Well adult exam - Discharge Dispostion Disposition: HOME Condition at time of disposition: Stable Admit: No - Referrals Referrals: Jose Manuel Gross Jr [Primary Care Provider] - - Patient Instructions Additional Instructions: Watch for any changes in behavior, vital signs changes, any bruising or deformities. Otherwise continue healthcare as previous as there is no evidence of any injury or illness today.
== END 2016-11-15 17:26 | disposition home or self-care (01) ==
LOC: JERFT 15:14
DX: F91.8 Other conduct disorders (principal); G40.909 Epilepsy, unspecified, not intractable, without status epilepticus
CPT/HCPCS: 99281-25

== ENCOUNTER 2017-04-19 22:43 | Emergency (ER) | payer OTHER ==
[2017-04-19 23:06] VITALS: BP 108/62; PULSE 79; TEMP 96.6; BMI 23.9
--- NOTE | 2017-04-19 23:22 | PDOC ---
History of Present Illness - General Chief Complaint: Laceration Stated Complaint: LACERATION Time Seen by Provider: 04/19/17 23:08 History Source: Care Provider, [facility] Records Exam Limitations: Clinical Condition - History of Present Illness Initial Comments: 04/19/17 23:17 41yo Female patient with severe autism presented to ED with caregiver c/o laceration to left scalp. Staff state patient has history of self injury behaviors. They report today noticed blood coming from scalp from laceration. They deny head injury, fall, LOC, trauma or any other complaints. Staff states patient usually wears a helmet but some how removed helmet. Vaccinations up to date. Timing/Duration: reports: this evening Severity: Yes: mild. No: moderate, severe Location: reports: scalp. denies: none, extremities, face, feet, genitalia, generalized, hands, other, torso Respiratory Risk Factors: denies: no cause identified, exposure to illness, exposure to allergen, foods, insect bite, insect sting, medications, pollen, soaps, other Modifying Factors: worse with: antihistamine, calamine lotion, prednisone, scratching, topical steriods, other Associated Symptoms: denies: denies symptoms, blisters, change in skin texture, edema, fever, flushing, headache, hives, jaundice, malaise, nasal congestion, numbness, pallor, paresthesia, petechiae, rash, sore throat, swelling/mass/lumps , tingling, other Past History - Travel Traveled outside of the country in the last 30 days: No Close contact w/someone who was outside of country & ill: No - Past Medical History Allergies/Adverse Reactions: Allergies Allergy/AdvReac Type Severity Reaction Status Date / Time wheat dextrin Allergy Verified 04/19/17 23:06 [From Benefiber (wheat dextrin)] Home Medications: Ambulatory Orders Ammonium Lactate Lotion [Lac-Hydrin 12% Lotion -] 1 applic TP BID 08/29/16 Benztropine Mesylate 1 mg PO DAILY 08/29/16 Carbamazepine [Tegretol -] 400 mg PO BID 08/29/16 Clomipramine HCl [Anafranil] 100 mg PO AM 08/29/16 Clomipramine HCl [Anafranil] 150 mg PO HS 08/29/16 Fluphenazine HCl 6 mg PO DAILY 08/29/16 Lamotrigine 400 mg PO HS 08/29/16 Pedi Multivit #22/Vit D3/Vit K [Multivitamins Chewables Tablet] 1 each PO DAILY 08/29/16 Sulfamethoxazole/Trimethoprim [Bactrim Ds -] 1 tab PO BID 08/29/16 Cephalexin [Keflex Suspension] 500 mg PO TID #300 ml 08/30/16 Cephalexin [Keflex Suspension] 500 mg PO TID #300 ml 08/30/16 Polyethylene Glycol 3350 [Miralax (For Bowel Prep) -] 17 gm PO DAILY #1 bottle 11/08/16 Anemia: No Asthma: No Cancer: No Cardiac Disorders: No CVA: No COPD: No CHF: No Dementia: No Diabetes: No GI Disorders: No Disorders: No HTN: No Hypercholesterolemia: No Liver Disease: No Psychiatric Problems: Yes (self aggressive behavior) Seizures: Yes (convulsive epilepsy,) Thyroid Disease: No - Surgical History Abdominal Surgery: No Appendectomy: No Cardiac Surgery: No Cholecystectomy: No Lung Surgery: No Neurologic Surgery: Yes Orthopedic Surgery: No - Immunization History Immunization Up to Date: Yes - Psycho/Social/Smoking Cessation Hx Anxiety: No Suicidal Ideation: No Smoking Status: No Smoking History: Never smoked Have you smoked in the past 12 months: No Number of Cigarettes Smoked Daily: 0 Information on smoking cessation initiated: No Hx Alcohol Use: No Drug/Substance Use Hx: No Substance Use Type: None Hx Substance Use Treatment: No Review of Systems - Review of Systems Able to Perform ROS?: Yes Is the patient limited [place]ymra[place] proficient: No Constitutional: No: Chills, Fever HEENTM: Yes: Other (Scalp Laceration) Integumentary: Yes: Other (Laceration) All Other Systems: Reviewed and Negative *Physical Exam - Vital Signs Last Vital Signs Temp Pulse Resp BP Pulse Ox 96.6 F L 79 20 108/62 98 04/19/17 22:58 04/19/17 22:58 04/19/17 22:58 04/19/17 22:58 04/19/17 22:58 - Physical Exam General Appearance: Yes: Nourished, Appropriately Dressed HEENT: positive: Normal ENT Inspection Neck: positive: Trachea midline, Supple. negative: Lymphadenopathy (R), Lymphadenopathy (L), Tender lateral, Tender midline Respiratory/Chest: positive: Lungs Clear, Normal Breath Sounds. negative: Chest Tender, Respiratory Distress, Accessory Muscle Use, Labored Respiration, Rapid RR, Stridor, Wheezing Cardiovascular: positive: Regular Rhythm, Regular Rate. negative: Tachycardia Musculoskeletal: positive: Normal Inspection. negative: CVA Tenderness Integumentary: positive: Normal Color, Dry, Warm, Other (2 cm laceration to left scalp region. Bleeding controlled) Neurologic: positive: Alert, Other (Severe Autism) Procedures - Laceration/Wound Repair Left Head Wound Length: to 2.5 cm Wound Explored: clean Wound's Depth, Shape: superficial, linear Irrigated w/ Saline: No Betadine Prep: No Wound Repaired With: Vic (3 Henning placed) Sterile Dressing Applied: No Splint Applied: No *DC/Admit/Observation/Transfer Diagnosis at time of Disposition: Mental retardation Laceration of scalp Qualifiers: Encounter type: initial encounter Qualified Code(s): S01.01XA - Laceration without foreign body of scalp, initial encounter - Discharge Dispostion Disposition: HOME Condition at time of disposition: Stable Admit: No - Patient Instructions Printed Discharge Instructions: DI for Laceration Repair Additional Instructions: Patient is to follow up with PCP or return to emergency department in 5 days for vic removal. Continue to wash hair with soap and water. Apply bacitracin as needed. Print Language: [place]
== END 2017-04-19 23:39 | disposition home or self-care (01) ==
LOC: SUPCPDRO 22:43 → JER 22:43
PROC: 3E0333Z Introduction of Anti-inflammatory into Peripheral Vein, Percutaneous Approach (ICD-10-PCS; principal; 2017-04-19)
DX: M54.41 Lumbago with sciatica, right side (principal)
CPT/HCPCS: 96374; 99281-25

== ENCOUNTER 2017-07-06 17:39 | Emergency (ER) | payer OTHER ==
[2017-07-06 17:51] VITALS: BMI 22.4
--- NOTE | 2017-07-06 19:28 | PDOC ---
History of Present Illness - General History Source: Care Provider, Halfway Records, Old Records Exam Limitations: Clinical Condition (Autism ) - History of Present Illness Initial Comments: 07/06/17 20:53 The patient is a 41 year old female brought via EMS from [facility] and presenting with her intensive care medicine specialist, with a significant past medical history of severe autism, blindness and Seizures, who presents to the emergency department with a laceration on her forehead after she fell off her wheelchair. The medical service technician notes that the patient rocks back and forth and her momentum forced her out of her chair. On presentation the patient has a visible forehead laceration but is not in any kind of distress. The patient has had multiple falls in the past leading to lacerations. Allergies: Wheat Dextrin Past surgical history: Nuerological surgery <Dean Raymond - Last Filed: 07/06/17 20:53> <Michelle Jurado - Last Filed: 07/06/17 22:32> - General Chief Complaint: Injury Stated Complaint: INJURY Time Seen by Provider: 07/06/17 18:37 Past History <Dean Raymond - Last Filed: 07/06/17 20:53> - Past Medical History Anemia: No Asthma: No Cancer: No Cardiac Disorders: No CVA: No COPD: No CHF: No Dementia: No Diabetes: No GI Disorders: No Disorders: No HTN: No Hypercholesterolemia: No Liver Disease: No Psychiatric Problems: Yes (self aggressive behavior) Seizures: Yes (convulsive epilepsy,) Thyroid Disease: No - Surgical History Abdominal Surgery: No Appendectomy: No Cardiac Surgery: No Cholecystectomy: No Lung Surgery: No Neurologic Surgery: Yes Orthopedic Surgery: No - Immunization History Immunization Up to Date: Yes - Suicide/Smoking/Psychosocial Hx Smoking Status: No Smoking History: Never smoked Have you smoked in the past 12 months: No Number of Cigarettes Smoked Daily: 0 Information on smoking cessation initiated: No Hx Alcohol Use: No Drug/Substance Use Hx: No Substance Use Type: None Hx Substance Use Treatment: No <Michelle Jurado - Last Filed: 07/06/17 22:32> - Past Medical History Allergies/Adverse Reactions: Allergies Allergy/AdvReac Type Severity Reaction Status Date / Time wheat dextrin Allergy Verified 07/06/17 17:51 [From Benefiber (wheat dextrin)] Home Medications: Ambulatory Orders Ammonium Lactate Lotion [Lac-Hydrin 12% Lotion -] 1 applic TP BID 08/29/16 Benztropine Mesylate 1 mg PO DAILY 08/29/16 Carbamazepine [Tegretol -] 400 mg PO BID 08/29/16 Clomipramine HCl [Anafranil] 100 mg PO AM 08/29/16 Clomipramine HCl [Anafranil] 150 mg PO HS 08/29/16 Fluphenazine HCl 1 mg PO DAILY 08/29/16 Lamotrigine 400 mg PO HS 08/29/16 Pedi Multivit #22/Vit D3/Vit K [Multivitamins Chewables Tablet] 1 each PO DAILY 08/29/16 Cephalexin [Keflex Suspension] 500 mg PO TID #300 ml 08/30/16 Cephalexin [Keflex Suspension] 500 mg PO TID #300 ml 08/30/16 Cephalexin [Keflex] 500 mg PO BID #10 capsule 07/06/17 Maalox Maximum Strength Susp 17 gm PO BID 07/06/17 Sennosides [Senna] 8.6 mg PO DAILY 07/06/17 Trauma Specific PMHX - Complaint Specific PMHX Back Injury: No Neck Injury: No <Michelle Jurado - Last Filed: 07/06/17 22:32> Review of Systems - Review of Systems Able to Perform ROS?: No Comments:: 07/06/17 20:54 Unable to obtain ROS due to patient medical condition. <Dean Raymond - Last Filed: 07/06/17 20:53> *Physical Exam - Vital Signs Last Vital Signs Temp Pulse Resp BP Pulse Ox 98.5 F 77 18 150/90 100 07/06/17 17:40 07/06/17 17:40 07/06/17 17:40 07/06/17 17:40 07/06/17 17:40 - Physical Exam Comments: 07/06/17 20:54 GENERAL: Awake, alert in no acute distress HEAD: (+) 4cm laceration on forehead. EYES: PERRLA, EOMI, sclera anicteric, conjunctiva clear ENT: Auricles normal inspection, hearing grossly normal, nares patent, oropharynx clear without exudates. Moist mucosa NECK: Normal ROM, supple, no lymphadenopathy, JVD, or masses LUNGS: No distress, clear to auscultation bilaterally HEART: Regular rate and rhythm, normal S1 and S2, no murmurs, rubs or gallops, peripheral pulses normal and equal bilaterally. ABDOMEN: Soft, nontender, normoactive bowel sounds. No guarding, no rebound. No masses EXTREMITIES : Normal inspection, Normal range of motion, no edema. No clubbing or cyanosis. NEUROLOGICAL: Alert, non-verbal on baseline. Able to move all extremities. SKIN: Warm, Dry, normal turgor, no rashes or lesions noted. <Dean Raymond - Last Filed: 07/06/17 20:53> - Vital Signs Last Vital Signs Temp Pulse Resp BP Pulse Ox 98.5 F 77 18 150/90 100 07/06/17 17:40 07/06/17 17:40 07/06/17 17:40 07/06/17 17:40 07/06/17 17:40 <Michelle Jurado - Last Filed: 07/06/17 22:32> Procedures - Laceration/Wound Repair Upper Face Wound Length: 2.6 to 5.0 cm Wound Explored: clean Wound's Depth, Shape: into muscle Irrigated w/ Saline: Yes Betadine Prep: No Anesthesia: 1% Lidocaine Amount of Anesthetic (ccs): 4 Wound Debrided: minimal Wound Repaired With: Sutures Suture Size/Type: 4:0 Number of Deep Layer Sutures: 6 Sterile Dressing Applied: No Splint Applied: No Sling Applied: No <Michelle Jurado - Last Filed: 07/06/17 22:32> Medical Decision Making - Medical Decision Making 07/06/17 21:33 41 yo female ROSSY from residential facility following head trauma. She has sevree austiem and has constant body rocking and today actually rocked her wheelchair forward and it tipped over and she hit her faorehead. She p/w with a full thickness linear laceration to her forehead.she is alert and conbactive which is her noirmal behavior according to her attendant <Michelle Jurado - Last Filed: 07/06/17 22:32> *DC/Admit/Observation/Transfer - Attestations Scribe Attestion: 10/16/17 20:54 Documentation prepared by Dean Raymond, acting as medical radiation therapist for Michelle Jurado MD <Dean Raymond - Last Filed: 07/06/17 20:53> <Michelle Jurado - Last Filed: 07/06/17 22:32> Diagnosis at time of Disposition: Laceration of forehead Qualifiers: Encounter type: initial encounter Qualified Code(s): S01.81XA - Laceration without foreign body of other part of head, initial encounter; S01.81XA - Laceration without foreign body of other part of head, initial encounter - Discharge Dispostion Disposition: HOME Condition at time of disposition: Stable - Prescriptions Prescriptions: Cephalexin [Keflex] 500 mg PO BID #10 capsule - Referrals Referrals: Swathi Baker [Primary Care Provider] - - Patient Instructions Printed Discharge Instructions: DI for Closed Head Injury, DI for Laceration Repair -- Simple Additional Instructions: please have sutures removed in one week
[2017-07-06] MEDS ORDERED: LIDOCAINE 2.5%/PRILOCAINE 2.5% (5 Gram/TUBE) TP ONE (19:29)
[2017-07-06] MEDS ORDERED: KETAMINE HCL 200 MG/20 ML VIAL ONE (19:59)
[2017-07-06] MEDS ORDERED: LIDOCAINE HCL 1%, 10 MG/ML (20ML VIAL) ONE (20:15)
[2017-07-06] MEDS ORDERED: LIDOCAINE HCL 2% (20ML MULTI-DOSE VIAL) NR ONE (20:15)
[2017-07-06] MEDS ORDERED: LIDOCAINE 1%/EPI 1:100000 (20 ML MULTI DOSE VIAL) ONE (20:15)
[2017-07-06] MEDS ORDERED: CEFTRIAXONE 50 ML ONE (21:38)
[2017-07-06] MEDS ORDERED: CEFTRIAXONE 1,000 MG in DEXTROSE 5%-WATER - 50 ML IVPB ONE (22:12)
[2017-07-06] MEDS ORDERED: KETAMINE HCL 200 MG/20 ML VIAL IVPUSH STA (22:37)
[2017-07-06] MEDS ORDERED: diphenhydrAMINE HCL 12.5 MG/5 ML BULK BOTTLE ONE ×2 (22:56→22:58)
[2017-07-06 23:11] VITALS: BP 138/82; PULSE 70; TEMP 98.2
== END 2017-07-06 23:10 | disposition home or self-care (01) ==
LOC: JER 17:39
PROC: 0JQ10ZZ Repair Face Subcutaneous Tissue and Fascia, Open Approach (ICD-10-PCS; principal; 2017-07-06)
PROC: 3E03329 Introduction of Other Anti-infective into Peripheral Vein, Percutaneous Approach (ICD-10-PCS; 2017-07-06)
DX: S01.81XA Laceration without foreign body of other part of head, initial encounter (principal); G40.802 Other epilepsy, not intractable, without status epilepticus; F84.0 Autistic disorder; H54.8 Legal blindness, as defined in USA; W05.0XXA Fall from non-moving wheelchair, initial encounter; Y93.89 Activity, other specified; Y92.128 Other place in nursing home as the place of occurrence of the external cause
CPT/HCPCS: 12013-25; 96365; 96374; 99284-25

== ENCOUNTER 2017-11-10 12:44 | Emergency (ER) | payer OTHER ==
[2017-11-10 13:25] VITALS: BP 113/60; PULSE 67; TEMP 98; BMI 19.4
--- NOTE | 2017-11-10 14:42 | PDOC ---
Attending Attestation - Resident Resident Name: Ninoska Bowen - ED Attending Attestation I have performed the following: I have examined & evaluated the patient, The case was reviewed & discussed with the resident, I agree w/resident's findings & plan, Exceptions are as noted <Swathi Posey - Last Filed: 11/10/17 14:42> - HPI HPI: 11/10/17 15:18 The patient is a 41 year old female, resident of [facility], with a significant PMH of severe autism, blindness and seizures who presents to the emergency department with erythema to the head today. As per the nursing aid, the patient wears a helmet as she constantly hits herself in the head. The nursing aid noticed the erythema prompting her to bring the patient. The patient denies chest pain, shortness of breath, headache and dizziness. Denies fever, chills, nausea, vomit, diarrhea and constipation. Denies dysuria, frequency, urgency and hematuria. Allergies: NKA Past surgical history: None reported. <Krystyna Zavala - Last Filed: 11/10/17 15:19>
--- NOTE | 2017-11-10 15:03 | PDOC ---
*Physical Exam - Vital Signs Last Vital Signs Temp Pulse Resp BP Pulse Ox 98.0 F 67 18 113/60 98 11/10/17 13:16 11/10/17 13:16 11/10/17 13:16 11/10/17 13:16 11/10/17 13:16 *DC/Admit/Observation/Transfer Diagnosis at time of Disposition: Mental retardation Head injury Qualifiers: Encounter type: initial encounter Qualified Code(s): S09.90XA - Unspecified injury of head, initial encounter - Discharge Dispostion Disposition: HOME Condition at time of disposition: Stable Admit: No - Referrals - Patient Instructions - Post Discharge Activity
== END 2017-11-10 15:23 | disposition home or self-care (01) ==
LOC: JER 12:44
DX: S09.8XXA Other specified injuries of head, initial encounter (principal); F98.4 Stereotyped movement disorders; F84.0 Autistic disorder; F79 Unspecified intellectual disabilities
CPT/HCPCS: 99281-25

== ENCOUNTER 2017-11-18 19:13 | Emergency (ER) | payer OTHER ==
--- NOTE | 2017-11-18 19:31 | PDOC ---
Rapid Medical Evaluation Time Seen by Provider: 11/18/17 19:26 Medical Evaluation: Allergies Allergy/AdvReac Type Severity Reaction Status Date / Time wheat dextrin Allergy Verified 11/10/17 13:16 [From Es (wheat dextrin)] 11/18/17 19:26 I have performed a brief in-person evaluation of this patient. The patient presents with a chief complaint of: bumped head on table during feeding, per [facility] staff patient is at baseline Pertinent physical exam findings: patient vomited in waiting room, lac to medial scalp I have ordered the following: labs The patient will proceed to the ED for further evaluation. Discharge Disposition - Diagnosis Head injury - Referrals - Patient Instructions - Post Discharge Activity
[2017-11-18 19:38] VITALS: BP 145/99; PULSE 65
--- NOTE | 2017-11-18 21:26 | PDOC ---
History of Present Illness - General Chief Complaint: Injury Stated Complaint: HEAD INJURY Time Seen by Provider: 11/18/17 19:26 History Source: Patient Exam Limitations: No Limitations - History of Present Illness Initial Comments: 11/18/17 21:20 Patient client of [facility], severe MR and CP. Has rocking behaviors, states while at dinner rocked forward and struck the top of head on edge of table incurring a small laceration. There was no LOC, but bleeding was stopped with some cool compresses, attendants who have worked with patient for many months to her behavior has been unchanged. Has been alert, without any obvious complaints of pain or different behavior. 11/18/17 21:26 Occurred: reports: just prior to arrival, this evening Severity: reports: mild, moderate Pain Location: reports: head Method of Injury: Yes: direct blow Modifying Factors: improves with: None Loss of Consciousness: no loss of consciousness Past History - Travel Traveled outside of the country in the last 30 days: No Close contact w/someone who was outside of country & ill: No - Past Medical History Allergies/Adverse Reactions: Allergies Allergy/AdvReac Type Severity Reaction Status Date / Time wheat dextrin Allergy Verified 11/10/17 13:16 [From Benefiber (wheat dextrin)] Home Medications: Ambulatory Orders Ammonium Lactate Lotion [Lac-Hydrin 12% Lotion -] 1 applic TP BID 08/29/16 Benztropine Mesylate 1 mg PO DAILY 08/29/16 Carbamazepine [Tegretol -] 400 mg PO BID 08/29/16 Clomipramine HCl [Anafranil] 100 mg PO AM 08/29/16 Clomipramine HCl [Anafranil] 150 mg PO HS 08/29/16 Fluphenazine HCl 1 mg PO DAILY 08/29/16 Lamotrigine 400 mg PO HS 08/29/16 Pedi Multivit #22/Vit D3/Vit K [Multivitamins Chewables Tablet] 1 each PO DAILY 08/29/16 Sennosides [Senna] 8.6 mg PO DAILY 07/06/17 Clonazepam 1 mg PO ASDIR 11/18/17 Anemia: No Asthma: No Cancer: No Cardiac Disorders: No CVA: No COPD: No CHF: No Dementia: No Diabetes: No GI Disorders: No Disorders: No HTN: No Hypercholesterolemia: No Liver Disease: No Psychiatric Problems: Yes (self aggressive behavior) Seizures: Yes (convulsive epilepsy,) Thyroid Disease: No - Surgical History Abdominal Surgery: No Appendectomy: No Cardiac Surgery: No Cholecystectomy: No Lung Surgery: No Neurologic Surgery: Yes Orthopedic Surgery: No - Immunization History Immunization Up to Date: Yes - Suicide/Smoking/Psychosocial Hx Smoking Status: No Smoking History: Never smoked Have you smoked in the past 12 months: No Number of Cigarettes Smoked Daily: 0 Information on smoking cessation initiated: No Hx Alcohol Use: No Drug/Substance Use Hx: No Substance Use Type: None Hx Substance Use Treatment: No Trauma Specific PMHX - Complaint Specific PMHX Back Injury: No Neck Injury: No Review of Systems - Review of Systems Able to Perform ROS?: Yes Is the patient limited Albanian proficient: Yes Constitutional: Yes: Symptoms Reported, See HPI HEENTM: Yes: See HPI. No: Symptoms Reported Integumentary: Yes: Symptoms Reported, See HPI Neurological: Yes: See HPI. No: Symptoms reported All Other Systems: Reviewed and Negative *Physical Exam - Vital Signs Last Vital Signs Temp Pulse Resp BP Pulse Ox 65 21 145/99 97 11/18/17 19:31 11/18/17 19:31 11/18/17 19:31 11/18/17 19:31 - Physical Exam General Appearance: Yes: Nourished, Appropriately Dressed, Apparent Distress, Mild Distress HEENT: positive: CHAD, Other (has 1 cm laceration midpoint forehead, without crepitus or step-offs. No active bleeding, no hematoma.). negative: TMs Normal (unable to visualize left ear secondary to deformity and loss of canal. Right TM without hemotympanum or drainage. No drainage from nose or ears, no evidence of skull fracture) Neck: positive: Supple. negative: Tender Gastrointestinal/Abdominal: positive: Soft. negative: Tender Extremity: positive: Normal Inspection Integumentary: positive: Normal Color, Dry, Warm, Pale Neurologic: positive: Alert, Normal Mood/Affect, Normal Response, Motor Strength 5/5 Progress Note - Progress Note Progress Note: Superficial head injury with scalp laceration repaired with 1 staple. Patient tolerated well. According to home health attendant who know patient well states behavior is unchanged and rocking behavior and even intermittent episodes of emesis are regular for her. There is no apparent significant intracranial injury or evidence of skull fracture therefore we'll continue treating conservatively and have patient follow-up as needed with staple remover in one week *DC/Admit/Observation/Transfer Diagnosis at time of Disposition: Head injury Qualifiers: Encounter type: initial encounter Qualified Code(s): S09.90XA - Unspecified injury of head, initial encounter Scalp laceration Qualifiers: Encounter type: initial encounter Qualified Code(s): S01.01XA - Laceration without foreign body of scalp, initial encounter - Discharge Dispostion Disposition: HOME Condition at time of disposition: Stable Admit: No - Referrals - Patient Instructions Printed Discharge Instructions: DI for Laceration Repair of the Scalp Additional Instructions: Rest, no exercise or gym until vic are removed May use ice packs tonight as needed for swelling and pain Put a towel over pillow/old pillowcase to avoid damage from bacitracin and bleeding to linens until vic removed Use antibiotic cream/ointment once in the morning once at night until vic are removed May use Tylenol or Motrin for pain relief Return to emergency department for worsening pain, swelling, bleeding, or evidence of serious head injury Staple removal in 5-7 days - Post Discharge Activity
== END 2017-11-18 21:33 | disposition home or self-care (01) ==
LOC: JER 19:13 → JERFT 19:13
PROC: 0HQ0XZZ Repair Scalp Skin, External Approach (ICD-10-PCS; principal; 2017-11-18)
DX: S01.01XA Laceration without foreign body of scalp, initial encounter (principal); W22.8XXA Striking against or struck by other objects, initial encounter; Y93.89 Activity, other specified; Y92.191 Dining room in other specified residential institution as the place of occurrence of the external cause; Y99.8 Other external cause status; F72 Severe intellectual disabilities; G80.8 Other cerebral palsy; R46.89 Other symptoms and signs involving appearance and behavior; F91.1 Conduct disorder, childhood-onset type
CPT/HCPCS: 99281-25

== ENCOUNTER 2018-06-09 19:09 | Emergency (ER) | payer OTHER ==
[2018-06-09 19:37] VITALS: BMI 20.6
--- NOTE | 2018-06-09 19:38 | PDOC ---
Rapid Medical Evaluation Time Seen by Provider: 06/09/18 19:35 Medical Evaluation: Allergies Allergy/AdvReac Type Severity Reaction Status Date / Time wheat dextrin Allergy Verified 04/06/18 17:21 [From Es (wheat dextrin)] 06/09/18 19:35 I have performed a brief in-person evaluation of this patient. The patient presents with a chief complaint of:L wrist swelling/redness noticed today at [place]. H/o profound MR, blindness, dystonia, epilepsy Pertinent physical exam findings: Unable to take temp as pt not able to cooperate, rest of vss, superficial wound w/ surrounding erythema and swelling of dorsum fo L wrist I have ordered the following:labs/xr The patient will proceed to the ED for further evaluation. Discharge Disposition - Diagnosis Cellulitis of wrist - Referrals - Patient Instructions - Post Discharge Activity
[2018-06-09 20:51] LABS: BASO % 0.4 % (0-2.0); EOS % 3.6 % (0-4.5); HEMATOCRIT 37.2 % (32.4-45.2); HEMOGLOBIN 12.5 GM/dL (10.7-15.3); LYMPH % 10.2 % (8-40); MCH 29.2 pg (25.7-33.7); MCHC 33.5 g/dl (32.0-36.0); MEAN CELL VOLUME 87.2 fl (80-96); MEAN PLT VOLUME 10.7 fl (7.5-11.1); NEUT % 76.8 % (42.8-82.8); PLATELET COUNT 240 K/MM3 (134-434); RBC 4.27 M/mm3 (3.60-5.2); RDW 13.6 % (11.6-15.6); WHITE BLOOD COUNT 12.4 K/mm3 (4.0-10.0)
[2018-06-09 21:21] LABS: ALBUMIN 3.4 g/dl (3.4-5.0); ANION GAP 5 MMOL/L (8-16); BILIRUBIN,TOTAL 0.2 mg/dL (0.2-1); BLOOD UREA NITROGEN 14 mg/dL (7-18); CALCIUM 9.1 mg/dL (8.5-10.1); CHLORIDE 110 mmol/L (98-107); CO2 27 mmol/L (21-32); CREATININE 0.5 mg/dL (0.55-1.3); GLUCOSE,RANDOM 101 mg/dL (74-106); SGPT/ALT 96 U/L (13-61); SODIUM 142 mmol/L (136-145); TOT PROT 7.1 g/dl (6.4-8.2)
[2018-06-09 21:22] LABS: ALK PHOS 111 U/L (45-117)
[2018-06-09 21:23] LABS: POTASSIUM 5.2 mmol/L (3.5-5.1); SGOT/AST 67 U/L (15-37)
--- NOTE | 2018-06-09 23:45 | PDOC ---
Attending Attestation - Resident Resident Name: Ed Fairchild - ED Attending Attestation I have performed the following: I have examined & evaluated the patient, The case was reviewed & discussed with the resident, I agree w/resident's findings & plan, Exceptions are as noted - HPI HPI: 06/10/18 00:03 The patient is a 42 year old female, with a significant past medical history of profound intellectual disabilities, Dystonia, epilepsy, blindness, who presents to the emergency department with left wrist swelling and redness with small punctuate. Staff member from [facility] denies trauma. The patient is a poor historian due to her clinical condition. Allergies: Wheat dextrin. Social history: [facility]. - Physicial Exam PE: 06/10/18 00:09 GENERAL: Awake, alert, rocking back and forth in no distress HEAD: No signs of trauma EYES: PERRLA, sclera anicteric, conjunctiva clear ENT: +macroglossia LUNGS: Breath sounds equal, clear to auscultation bilaterally. No wheezes, and no crackles HEART: Regular rate and rhythm, normal S1 and S2, no murmurs, rubs or gallops ABDOMEN: Soft, nontender, normoactive bowel sounds. No guarding, no rebound. No masses EXTREMITIES: L wrist with punctate papule with surrounding edema, erythema, induration extending to the hand and distal wrist. No fluctuance. 2+ radial pulse. FROM in L hand. Otherwise, extremities with normal range of motion, no edema. No clubbing or cyanosis. No cords, erythema, or tenderness NEUROLOGICAL: aphasic SKIN: as noted in extremity exam - Medical Decision Making 06/10/18 00:12 42yo F with profound MR presents to the ED with L wrist cellulitis. L XR ( reviewed with radiologist by Dr. Fairchild) with no acute wrist or hand fractures and older appearing ulna fracture. Pt not tender or deformed in mid ulna. Will cover with PO bactrim and have wound check in 48hours. Discussed with boot liner maker at bedside that pt needs to return in 48 hours to ensure abx are working. If not , pt will require IV abx and admission. PT stable for DC home.
--- NOTE | 2018-06-10 00:55 | PDOC ---
History of Present Illness - General Chief Complaint: Redness To Affected Area Stated Complaint: EDEMA Time Seen by Provider: 06/09/18 19:35 History Source: [facility] Records, Old Records, Primary Care Provider (Two health aids present for interview.) Exam Limitations: Other (Pt non-verbal w/ h/o severe developmental delay.) - History of Present Illness Initial Comments: 42 y/o female presenting to [facility] ER from [facility] complaining of wound and rash to dorsal aspect of left forearm. Care Providers at bedside unable to provide any information. Pt is non-verbal and profoundly developmentally delayed ; unable to provide information. No HPI documentation in packet provided. There is documentation of folliculitis with positive MRSA culture in May 2016 but site is not specified; believed to be secondary to self injurious behavior. Attempted to call [facility] [employer] 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 Paperwork states pt has not contact with family. PCP: Renato Past History - Past Medical History Allergies/Adverse Reactions: Allergies Allergy/AdvReac Type Severity Reaction Status Date / Time wheat dextrin Allergy Verified 06/09/18 19:37 [From Es (wheat dextrin)] Home Medications: Ambulatory Orders Ammonium Lactate Lotion [Lac-Hydrin 12% Lotion -] 1 applic TP BID 08/29/16 Benztropine Mesylate 1 mg PO DAILY 08/29/16 Carbamazepine [Tegretol -] 400 mg PO BID 08/29/16 Clomipramine HCl [Anafranil] 100 mg PO AM 08/29/16 Clomipramine HCl [Anafranil] 150 mg PO HS 08/29/16 Fluphenazine HCl 1 mg PO DAILY 08/29/16 Lamotrigine 400 mg PO HS 08/29/16 Pedi Multivit #22/Vit D3/Vit K [Multivitamins Chewables Tablet] 1 each PO DAILY 08/29/16 Sennosides [Senna] 8.6 mg PO DAILY 07/06/17 Clonazepam 1 mg PO ASDIR 11/18/17 Doxycycline Hyclate [Vibramycin -] 100 mg PO BID #20 cap 04/06/18 Sulfamethoxazole/Trimethoprim [Bactrim Ds -] 2 tab PO BID 7 Days #28 tablet Anemia: No Asthma: No Cancer: No Cardiac Disorders: No CVA: No COPD: No CHF: No DVT: No Dementia: No Diabetes: No GI Disorders: No Disorders: No HTN: No Hypercholesterolemia: No Liver Disease: No Psychiatric Problems: Yes (self aggressive behavior,m.r) Seizures: Yes (convulsive epilepsy,infantile cerebral palsy) Thyroid Disease: No - Surgical History Abdominal Surgery: No Appendectomy: No Cardiac Surgery: No Cholecystectomy: No Lung Surgery: No Neurologic Surgery: Yes Orthopedic Surgery: No - Immunization History Immunization Up to Date: Yes - Suicide/Smoking/Psychosocial Hx Smoking Status: No Smoking History: Never smoked Have you smoked in the past 12 months: No Number of Cigarettes Smoked Daily: 0 Hx Alcohol Use: No Drug/Substance Use Hx: No Substance Use Type: None Hx Substance Use Treatment: No Review of Systems - Review of Systems Able to Perform ROS?: No Comments:: Pt non-verbal at baseline. *Physical Exam - Vital Signs Last Vital Signs Temp Pulse Resp BP Pulse Ox 99.0 F 85 18 117/82 100 06/09/18 22:32 06/09/18 19:33 06/09/18 19:33 06/09/18 19:33 06/09/18 19:33 - Physical Exam Comments: Constitutional: Well-nourished, non-toxic female in no acute distress. Found strapped to person wheelchair. Alert and oriented to baseline per aids present at bedside. HEENT: Normocephalic. No obvious external signs of trauma. Hearing grossly normal. No nasal discharge. Neck is supple, trachea is midline. Cardiovascular: Regular rate and regular rhythm. No murmur, rubs, clicks, or gallops. Peripheral pulses: Radial pulses full. Respiratory: Breathing unlabored. Equal chest rise and fall. Clear to auscultation bilaterally. No stridor, no wheezing, no rhonchi. Gastrointestinal: abdomen is soft, non-tender, non-distended. Neuro: Alert and oriented to baseline. Moving all four extremities spontaneously. MSK / Skin: Puntate wound on dorsum of left with surrounding erythema and swelling; no active bleeding or purulent discharge. Warm to the touch. No lymphatic streaking. Pt moving left hand actively without obvious discomfort. Globally skin is warm and dry. ED Treatment Course - LABORATORY CBC & Chemistry Diagram: 06/09/18 20:40 06/09/18 20:40 - ADDITIONAL ORDERS Additional order review: Laboratory Results 06/09/18 06/09/18 20:40 20:40 Sodium 142 Potassium 5.2 H Chloride 110 H Carbon Dioxide 27 Anion Gap 5 L BUN 14 Creatinine 0.5 L Creat Clearance w eGFR > 60 Random Glucose 101 Calcium 9.1 Total Bilirubin 0.2 AST 67 H ALT 96 H Alkaline Phosphatase 111 Total Protein 7.1 Albumin 3.4 Serum , Qual Negative 06/09/18 20:40 RBC 4.27 MCV 87.2 MCHC 33.5 RDW 13.6 MPV 10.7 Neutrophils % 76.8 Lymphocytes % 10.2 D Monocytes % 9.0 Eosinophils % 3.6 Basophils % 0.4 Medical Decision Making - Medical Decision Making *Reviewed vital signs, nursing notes, and prior visit documentation (if available). 42 y/o female with cellulitic lesion to dorsum of left hand. No systemic signs. Afebrile. Vitals unremarkable for hypotension or tachycardia. Physical exam as described above. Suspect possible MRSA cellulitis given h/o positive culture from old paperwork, though no information about location is provided. Will prescribed TMP-SMX. Plain films of forearm ordered by MARIA ALEJANDRAE. No obvious subcutaneous emphysema or lytic lesions. Low suspicion for gas gangrene or osteomyelitis. Old, poorly healed fracture noted on humerus. Discussed imaging and physical exam findings with aids. Answered all questions. Provided return precautions. Both expressed verbal understanding. Pt to follow up with physician within next 48 hours for wound evaluation. *DC/Admit/Observation/Transfer Diagnosis at time of Disposition: Cellulitis of wrist - Discharge Dispostion Disposition: HOME Condition at time of disposition: Fair Decision to Admit order: No - Prescriptions Prescriptions: Sulfamethoxazole/Trimethoprim [Bactrim Ds -] 2 tab PO BID 7 Days #28 tablet - Referrals - Patient Instructions Printed Discharge Instructions: DI for Cellulitis -- Adult, DI for Methicillin- Resistant Staph Infection (MRSA) Additional Instructions: The hand is likely infected. Based on her history of MRSA folliculitis (per [facility] documentation), I am treating her for likely MRSA cellulitis. I sent a prescription for Bactrim to [facility]. Take as directed on the package insert. She needs to have the wound checked again in 48hrs either by your staff physician or ER/Urgent Care. Watch the wound for sings of worsening infection, like discharge and streaking up the arm. Come back to the ER if she develops a high fever, chills, diaphoresis, or a change in mental status. Print Language: DANISH - Post Discharge Activity
[2018-06-10 01:38] VITALS: BP 110/74; PULSE 74; TEMP 98.9
== END 2018-06-10 00:58 | disposition home or self-care (01) ==
LOC: JER 19:09
DX: L03.114 Cellulitis of left upper limb (principal); G80.8 Other cerebral palsy; F73 Profound intellectual disabilities; G40.909 Epilepsy, unspecified, not intractable, without status epilepticus; G24.8 Other dystonia; H54.7 Unspecified visual loss
CPT/HCPCS: 36415; 73110-TC-LR-FY; 73130-TC-LR-FY; 80053; 84703; 85025; 99283-25

== ENCOUNTER 2018-09-29 01:01 | Emergency (ER) | payer OTHER ==
[2018-09-29 01:56] VITALS: TEMP 98.1; BMI 20.1
--- NOTE | 2018-09-29 02:37 | PDOC ---
Attending Attestation - Resident Resident Name: Rosanna Irving - ED Attending Attestation I have performed the following: I have examined & evaluated the patient, The case was reviewed & discussed with the resident, I agree w/resident's findings & plan, Exceptions are as noted - HPI HPI: 09/29/18 03:53 The patient is a 43 year old female, with a significant past medical history of profound intellectual disabilities, dystonia, epilepsy, blindness, who presents to the emergency department with, a laceration to the head. As per nursing staff , upon their hourly evaluation of her they noticed a laceration to her head and active bleeding. The patient is known to have self-abusive behaviors. Pt is non verbal and can not contribute to the history. Allergies: Wheat dextrin. Social history: [facility]. - Physicial Exam PE: 09/29/18 03:56 agree with resident exam - Medical Decision Making 09/29/18 03:57 43yo F presents to the ED with head lac after unknown head trauma. Head to toe exam reveals 2.5cm scalp lac that has been stapled. No other evidence of traumatic injury. Plan for CTH, CT-c spine, CXR, pelvis xr, reassess 09/29/18 06:57 Despite multiple doses of ativan, pt remains uncooperative for CTH/c-spine Plan for ketamine for mild sedation to obtain imaging, CT scanner is down at this time On re-eval, pt at her baseline per the aids Case signed out to oncoming attending for f/u diagnostics and dispo
--- NOTE | 2018-09-29 03:15 | PDOC ---
History of Present Illness - General Chief Complaint: Head/Neck problem Stated Complaint: INJURY TO HEAD Time Seen by Provider: 09/29/18 01:28 History Source: Care Provider Exam Limitations: Other (nonverbal) - History of Present Illness Initial Comments: 09/29/18 03:30 43YOF with h/o severe MR/DD, self aggressive behavior, convulsive epilepsy, and infantile cerebral palsy) who p/w caregivers c/o head injury with posterior scalp laceration. The patient herself is nonverbal at baseline and unable to contribute to her HPI. A caregiver notes that they normally check on her in her room about once per hour, and she is non-ambulatory at baseline. They went in to check on her and change her clothes tonight and found her sitting on her bed , rocking, with blood on the back of her head and all over the bed. Whatever happened was unwitnessed. Otherwise the patient was acting per her normal baseline. They state she has not had any obvious symptoms of illness lately. Past History - Past Medical History Allergies/Adverse Reactions: Allergies Allergy/AdvReac Type Severity Reaction Status Date / Time wheat dextrin Allergy Verified 09/29/18 01:28 [From Es (wheat dextrin)] Home Medications: Ambulatory Orders Carbamazepine [Tegretol -] 400 mg PO BID 08/29/16 Clomipramine HCl [Anafranil] 150 mg PO HS 08/29/16 Fluphenazine HCl 1 mg PO DAILY 08/29/16 Lamotrigine 200 mg PO HS 08/29/16 Pedi Multivit #22/Vit D3/Vit K [Multivitamins Chewables Tablet] 1 each PO DAILY 08/29/16 Sennosides [Senna] 8.6 mg PO DAILY 07/06/17 Clonazepam 1 mg PO TID 11/18/17 Benztropine Mesylate 2 mg PO DAILY 09/29/18 Carbamide Peroxide 6.5% [Debrox -] 4 drop OT TID 09/29/18 Docusate Calcium 240 mg PO BID 09/29/18 Anemia: No Asthma: No Cancer: No Cardiac Disorders: No CVA: No COPD: No CHF: No DVT: No Dementia: No Diabetes: No GI Disorders: No Disorders: No HTN: No Hypercholesterolemia: No Liver Disease: No Psychiatric Problems: Yes (self aggressive behavior,m.r) Seizures: Yes (convulsive epilepsy,infantile cerebral palsy) Thyroid Disease: No - Surgical History Abdominal Surgery: No Appendectomy: No Cardiac Surgery: No Cholecystectomy: No Lung Surgery: No Neurologic Surgery: Yes Orthopedic Surgery: No - Immunization History Immunization Up to Date: Yes - Suicide/Smoking/Psychosocial Hx Smoking Status: No Smoking History: Never smoked Have you smoked in the past 12 months: No Number of Cigarettes Smoked Daily: 0 Information on smoking cessation initiated: No Hx Alcohol Use: No Drug/Substance Use Hx: No Substance Use Type: None Hx Substance Use Treatment: No Review of Systems - Review of Systems Able to Perform ROS?: No (MR/DD) *Physical Exam - Vital Signs Last Vital Signs Temp Pulse Resp BP Pulse Ox 98.1 F 66 18 126/84 99 09/29/18 01:09/29/18 01:09/29/18 01:01 09/29/18 01:01 09/29/18 01:01 - Physical Exam Comments: Trauma assessment: protecting airway, equal bilateral breath sounds, abdomen soft, pelvis stable, no thigh hematoma, no midline vertebral tenderness C/T/L spine, no spinal step-off or deformity, no back hematoma, moving all extremities , no cephalohematoma, scalp laceration which is 3 cm partial thickness and oozing blood, no raccoon eyes, no pacheco sign, no hemotympanum, no CSF rhinorrhea/otorrhea, no jaw malocclusion GENERAL: rocking forward and backward, unable to answer questions, makes sounds but does not speak HEENT: eyes held shut, caregivers state legally blind at baseline, moist mucous membranes NECK/BACK: no spinal stepoff or deformity, no hematoma, neck supple CARDIOVASCULAR: regular rate/rhythm, normal S1S2, no MGR, capillary refill <2 seconds, extremities wwp, no edema 09/29/2018 LUNGS/RESPIRATORY: nononlabored respirations, lungs CTAB GI/ABDOMEN: symmetric [id number], normoactive BS, soft, no midline pulsatile masses, no organomegaly : normal external appearance, no lesions, no swelling, non-malodorous EXTREMITIES: no muscle atrophy, no acute deformity, no edema SKIN: warm and dry, no pallor, no jaundice, no rash, no bruising, no skin breakdown, no cuts NEUROLOGICAL: Not alert or oriented, CN II-XII grossly intact, no obvious facial droop, otherwise patient is unable to participate in exam Moderate Sedation - Procedure Monitoring Vital Signs: Procedure Monitoring Vital Signs Temperature 98.1 F 09/29/18 01:01 Pulse Rate 66 09/29/18 01:01 Respiratory Rate 18 09/29/18 01:01 Blood Pressure 126/84 09/29/18 01:01 O2 Sat by Pulse Oximetry (%) 99 09/29/18 01:01 ED Treatment Course - RADIOLOGY Radiology Studies Ordered: Category Date Time Status CERVICAL SPINE CT W/O CONTR [CT] Stat CT Scan 09/29/18 02:[address] WITHOUT CONTRAST [CT] Stat CT Scan 09/29/18 02:37 Ordered CHEST PA & LAT [RAD] Stat Radiology 09/29/18 02:37 Ordered PELVIS [RAD] Stat Radiology 09/29/18 02:37 Ordered Medical Decision Making - Medical Decision Making 09/29/18 07:24 43YOF with severe MR/DD p/w fall and head injury. She cannot provide any medical history VS: Exam: As noted in Physical Exam section. DDX IBNLT: scalp contusion, concussion, ICH, skull fracture, facial bone fracture W/U ordered: Head and C-spine CT TX ordered: EKG: Reviewed; results as noted in ECG Review section. CXR: CT: Labs: Reassessment: Repeat VS: *DC/Admit/Observation/Transfer - Discharge Dispostion Condition at time of disposition: Fair - Referrals - Patient Instructions - Post Discharge Activity
[2018-09-29] MEDS ORDERED: KETAMINE HCL 200 MG/20 ML VIAL IM ONE (07:22)
--- NOTE | 2018-09-29 09:02 | PDOC ---
*Physical Exam - Vital Signs Last Vital Signs Temp Pulse Resp BP Pulse Ox 98.1 F 66 18 126/84 99 09/29/18 01:01 09/29/18 01:01 09/29/18 01:01 09/29/18 01:01 09/29/18 01:01 <Radha Kent - Last Filed: 09/29/18 08:56> - Vital Signs Last Vital Signs Temp Pulse Resp BP Pulse Ox 98.1 F 73 16 105/78 100 09/29/18 01:01 09/29/18 10:37 09/29/18 10:37 09/29/18 10:37 09/29/18 10:37 <Edelmira Wilson - Last Filed: 09/29/18 11:00> ED Treatment Course - Medications Given in the ED: ED Medications Discontinued Medications Generic Name Dose Route Start Last Admin Trade Name Freq PRN Reason Stop Dose Admin Ketamine HCl 56 mg 09/29/18 07:22 09/29/18 07:34 Ketalar - IM 09/29/18 07:23 56 mg ONCE ONE Administration Lorazepam 1 mg 09/29/18 04:57 09/29/18 05:17 Ativan Injection - IM 09/29/18 04:58 1 mg ONCE ONE Administration Lorazepam 2 mg 09/29/18 06:39 09/29/18 06:50 Ativan Injection - IM 09/29/18 06:40 2 mg ONCE ONE Administration <Radha Kent - Last Filed: 09/29/18 08:56> - RADIOLOGY Radiograph Interpretation: EXAM#: TYPE/EXAM: RESULT: [id number] RAD/CHEST X-RAY PORTABLE* Trauma. Impression. No evidence of active pulmonary disease. Reported By: Kory Isidro MD 09/29/18 07:54 EXAM#: TYPE/EXAM: RESULT: [id number] RAD/PELVIS Trauma. Impression. Within limitation of examination, no acute bony abnormalities are seen. Reported By: Kory Isidro MD 09/29/18 07:52 EXAM#: TYPE/EXAM: RESULT: [id number] CT/CERVICAL SPINE CT W/O CONTR IMPRESSION: The alignment is satisfactory. No gross fracture or subluxation is seen. No jumped facets are identified. Correlate clinically to determine further evaluation and follow-up. Reported By: Albino Ambriz MD 09/29/18 08:51 EXAM#: TYPE/EXAM: RESULT: [id number] CT/HEAD CT WITHOUT CONTRAST Status post trauma CT scan of the brain without intravenous contrast. IMPRESSION: No significant interval change. 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 No gross acute intracranial pathology is identified. Bilateral phthisis bulbi Extensive calcification of the ear pinna again noted, bilaterally. Correlate clinically to determine further evaluation and follow-up. Reported By: Albino Ambriz MD 09/29/18 08:51 09/29/18 10:55 - Medications Given in the ED: ED Medications Discontinued Medications Generic Name Dose Route Start Last Admin Trade Name Freq PRN Reason Stop Dose Admin Ketamine HCl 56 mg 09/29/18 07:22 09/29/18 07:34 Ketalar - IM 09/29/18 07:23 56 mg ONCE ONE Administration Lorazepam 1 mg 09/29/18 04:57 09/29/18 05:17 Ativan Injection - IM 09/29/18 04:58 1 mg ONCE ONE Administration Lorazepam 2 mg 09/29/18 06:39 09/29/18 06:50 Ativan Injection - IM 09/29/18 06:40 2 mg ONCE ONE Administration <Edelmira Wilson - Last Filed: 09/29/18 11:00> Medical Decision Making - Medical Decision Making 09/29/18 09:04 I received this patient on signed. Briefly she is a 43-year-old female, resident at [facility]. She presents emergency department status post unwitnessed fall. Patient sustained a laceration to the back of her head. She is status post laceration repair. Patient required multiple doses of Ativan, and ultimately ketamine in order to get her calm enough for head CT. CT performed and demonstrates multiple chronic changes, no acute intracranial hemorrhage. CT cervical spine images no gross fracture, subluxation, or prevertebral soft tissue swelling. Will plan to return back to the facility once patient is more awake. Please of her results will be sent with her <Radha Kent - Last Filed: 09/29/18 08:56> *DC/Admit/Observation/Transfer - Discharge Dispostion Decision to Admit order: No <Radha Kent - Last Filed: 09/29/18 08:56> - Attestations Scribe Attestion: Documentation prepared by NAVEED Hendricks, acting as medical transcription radiology for Desirae Velazquez MD, MD/DO. 09/29/18 11:00 <Edelmira Wilson - Last Filed: 09/29/18 11:00> Diagnosis at time of Disposition: Laceration of scalp Qualifiers: Encounter type: initial encounter Qualified Code(s): S01.01XA - Laceration without foreign body of scalp, initial encounter Head trauma Qualifiers: Encounter type: initial encounter Qualified Code(s): S09.90XA - Unspecified injury of head, initial encounter - Discharge Dispostion Disposition: HOME Condition at time of disposition: Stable - Referrals Referrals: Jose Manuel Gross Jr [Primary Care Provider] - - Patient Instructions Printed Discharge Instructions: DI for Laceration Repair -- [place], DI for Closed Head Injury Additional Instructions: Thank you for bringing Veronica in to the ER today Good wound care and follow-up are essential for proper healing, less scarring, and prevention of infection. The greatest risk of infection occurs with deep puncture wounds, splinters, or debris remaining in the wound that cannot be easily found and in patients with diabetes or a weakened immune system. Depending on the type of wound, the emergency department physician might have prescribed an antibiotic. Check the wound every day for signs of infection. Home Care: 1. Portia will require removal: It is acceptable to wash gently today. After this, keep it clean and dry. Apply antibiotic ointment and a bandage twice a day. [place] can be removed in 7 - 10 days The facility doctor can do this. If not, patient can be returned to the ER RETURN TO THE ER IMMEDIATELY 1. The wound opens or bleeds 2. Wound redness, swelling, or pus drainage occurs. 3. Fever occurs. 4. Pain worsens. - Post Discharge Activity
[2018-09-29 13:00] VITALS: BP 110/65; PULSE 76
== END 2018-09-29 13:15 | disposition home or self-care (01) ==
LOC: JER 01:01
PROC: 0HQ0XZZ Repair Scalp Skin, External Approach (ICD-10-PCS; principal; 2018-09-29)
PROC: 3E023NZ Introduction of Analgesics, Hypnotics, Sedatives into Muscle, Percutaneous Approach (ICD-10-PCS; 2018-09-29)
PROC: 3E023NZ Introduction of Analgesics, Hypnotics, Sedatives into Muscle, Percutaneous Approach (ICD-10-PCS; 2018-09-29)
PROC: 3E023BZ Introduction of Anesthetic Agent into Muscle, Percutaneous Approach (ICD-10-PCS; 2018-09-29)
DX: S01.81XA Laceration without foreign body of other part of head, initial encounter (principal); S01.01XA Laceration without foreign body of scalp, initial encounter; W18.39XA Other fall on same level, initial encounter; Y93.89 Activity, other specified; Y92.198 Other place in other specified residential institution as the place of occurrence of the external cause; Y99.8 Other external cause status; F79 Unspecified intellectual disabilities; R62.50 Unspecified lack of expected normal physiological development in childhood; G80.8 Other cerebral palsy; F91.1 Conduct disorder, childhood-onset type; G40.909 Epilepsy, unspecified, not intractable, without status epilepticus
CPT/HCPCS: 70450-TC; 71045-TC-FY; 72125-TC; 72170-TC-FY; 99283-25

== ENCOUNTER 2018-10-07 18:14 | Emergency (ER) | payer OTHER ==
--- NOTE | 2018-10-07 18:22 | PDOC ---
Suture Removal/Wound Check HPI - History of Present Illness Stated Complaint: STITCHES REMOVAL Time Seen by Provider: 10/07/18 18:21 History Source: Yes: Care Provider, Old Records Exam Limitations: Yes: No Limitations Treated at: [facility] Date of Last ED visit: 09/29/18 - Previous ED Treatment Type of procedure performed on last visit: Yes: Laceration Repair Tetanus Immunization: Yes: Up to Date Antibiotics Prescribed: No Past History - Travel Traveled outside of the country in the last 30 days: No Close contact w/someone who was outside of country & ill: No - Past Medical History Allergies/Adverse Reactions: Allergies Allergy/AdvReac Type Severity Reaction Status Date / Time wheat dextrin Allergy Verified 09/29/18 01:28 [From Es (wheat dextrin)] Home Medications: Ambulatory Orders Carbamazepine [Tegretol -] 400 mg PO BID 08/29/16 Clomipramine HCl [Anafranil] 150 mg PO HS 08/29/16 Fluphenazine HCl 1 mg PO DAILY 08/29/16 Lamotrigine 200 mg PO HS 08/29/16 Pedi Multivit #22/Vit D3/Vit K [Multivitamins Chewables Tablet] 1 each PO DAILY 08/29/16 Sennosides [Senna] 8.6 mg PO DAILY 07/06/17 Clonazepam 1 mg PO TID 11/18/17 Benztropine Mesylate 2 mg PO DAILY 09/29/18 Carbamide Peroxide 6.5% [Debrox -] 4 drop OT TID 09/29/18 Docusate Calcium 240 mg PO BID 09/29/18 Anemia: No Asthma: No Cancer: No Cardiac Disorders: No CVA: No COPD: No CHF: No DVT: No Dementia: No Diabetes: No GI Disorders: No Disorders: No HTN: No Hypercholesterolemia: No Liver Disease: No Psychiatric Problems: Yes (self aggressive behavior,m.r) Seizures: Yes (convulsive epilepsy,infantile cerebral palsy) Thyroid Disease: No - Surgical History Abdominal Surgery: No Appendectomy: No Cardiac Surgery: No Cholecystectomy: No Lung Surgery: No Neurologic Surgery: Yes Orthopedic Surgery: No - Immunization History Td Vaccination: Yes TDAP Vaccination: Yes Immunization Up to Date: Yes - Suicide/Smoking/Psychosocial Hx Smoking Status: No Smoking History: Never smoked Have you smoked in the past 12 months: No Number of Cigarettes Smoked Daily: 0 Hx Alcohol Use: No Drug/Substance Use Hx: No Substance Use Type: None Hx Substance Use Treatment: No Suture Removal/Wound Check PE - Physical Exam Laceration/Wound Check Symptoms: denies: Discharge, Bleeding Location of Laceration/Wound: left: Head *Review of Systems - Review of Systems Able to Perform ROS?: No (Profound MR/CP) Constitutional: No: Fever (per aide) HEENTM: Yes: Other (no symptoms reported per aide) *Physical Exam - Physical Exam General Appearance: Yes: Nourished. No: Apparent Distress HEENT: positive: CHAD CURIEL Medical Decision Making - Medical Decision Making 10/07/18 18:31 Wound clean dry well approximated 5 vic removed *DC/Admit/Observation/Transfer Diagnosis at time of Disposition: Removal of vic - Discharge Dispostion Disposition: LONG TERM FACILITY Condition at time of disposition: Stable Decision to Admit order: No - Referrals - Patient Instructions Printed Discharge Instructions: DI for Suture Removal Additional Instructions: return for redness or discharge from the wound or any other concerning symptoms - Post Discharge Activity
[2018-10-07 18:27] VITALS: BP 106/60; PULSE 68; TEMP 97.8; BMI 25.8
== END 2018-10-07 19:01 ==
LOC: JERFT 18:14
DX: Z48.817 Encounter for surgical aftercare following surgery on the skin and subcutaneous tissue (principal); Z48.02 Encounter for removal of sutures
CPT/HCPCS: 99281-25

== ENCOUNTER 2019-02-28 19:13 | Emergency (ER) | payer OTHER ==
[2019-02-28 20:02] VITALS: BMI 26.9
--- NOTE | 2019-02-28 20:36 | PDOC ---
History of Present Illness - General Chief Complaint: Eye Problem Stated Complaint: EYE INJURY Time Seen by Provider: 02/28/19 19:48 - History of Present Illness Initial Comments: 02/28/19 20:34 43-year-old female with profound mental retardation presents for evaluation. History given by caregiver from the home she resides at. Patient was sitting at dinner without her helmet on and slammed her head into a table sustaining a superficial laceration on the left lateral aspect of her face. There was no loss of consciousness or post injury vomiting Past History - Past Medical History Allergies/Adverse Reactions: Allergies Allergy/AdvReac Type Severity Reaction Status Date / Time wheat dextrin Allergy Verified 02/28/19 19:44 [From Benefiber (wheat dextrin)] Home Medications: Ambulatory Orders Carbamazepine [Tegretol -] 400 mg PO BID 08/29/16 Clomipramine HCl [Anafranil] 150 mg PO HS 08/29/16 Fluphenazine HCl 1 mg PO DAILY 08/29/16 Lamotrigine 200 mg PO HS 08/29/16 Pedi Multivit #22/Vit D3/Vit K [Multivitamins Chewables Tablet] 1 each PO DAILY 08/29/16 Sennosides [Senna] 8.6 mg PO DAILY 07/06/17 Clonazepam 1 mg PO TID 11/18/17 Benztropine Mesylate 2 mg PO DAILY 09/29/18 Carbamide Peroxide 6.5% [Debrox -] 4 drop OT TID 09/29/18 Docusate Calcium 240 mg PO BID 09/29/18 Naltrexone HCl 50 mg PO DAILY 02/28/19 Anemia: No Asthma: No Cancer: No Cardiac Disorders: No CVA: No COPD: No CHF: No DVT: No Dementia: No Diabetes: No GI Disorders: No Disorders: No HTN: No Hypercholesterolemia: No Liver Disease: No Psychiatric Problems: Yes (self aggressive behavior,m.r) Seizures: Yes (convulsive epilepsy,infantile cerebral palsy) Thyroid Disease: No - Surgical History Abdominal Surgery: No Appendectomy: No Cardiac Surgery: No Cholecystectomy: No Lung Surgery: No Neurologic Surgery: Yes Orthopedic Surgery: No - Immunization History Td Vaccination: Yes TDAP Vaccination: Yes Immunization Up to Date: Yes - Suicide/Smoking/Psychosocial Hx Smoking Status: No Smoking History: Never smoked Have you smoked in the past 12 months: No Number of Cigarettes Smoked Daily: 0 Information on smoking cessation initiated: No Hx Alcohol Use: No Drug/Substance Use Hx: No Substance Use Type: None Hx Substance Use Treatment: No Review of Systems - Review of Systems Able to Perform ROS?: No *Physical Exam - Vital Signs Last Vital Signs Temp Pulse Resp BP Pulse Ox 98.4 F 63 18 108/67 96 02/28/19 19:40 02/28/19 19:40 02/28/19 19:40 02/28/19 19:40 02/28/19 19:40 - Physical Exam Comments: 02/28/19 20:34 HEAD: NC/ there is a 1 cm superficial laceration adjacent to the left eye SKIN: Normal color and temperature no lesions or rashes ED Treatment Course - RADIOLOGY Radiology Studies Ordered: Category Date Time Status FACIAL BONES CT W/O CONTRAST [CT] Stat CT Scan 02/28/19 20:[address] WITHOUT CONTRAST [CT] Stat CT Scan 02/28/19 20:06 Ordered Medical Decision Making - Medical Decision Making 02/28/19 20:35 CT of head and facial bones were ordered. Patient will be transferred to the main ER for further evaluation and possible sedation for CAT scan *DC/Admit/Observation/Transfer Diagnosis at time of Disposition: Closed head injury - Referrals - Patient Instructions - Post Discharge Activity
--- NOTE | 2019-02-28 20:44 | PDOC ---
*Physical Exam - Vital Signs Last Vital Signs Temp Pulse Resp BP Pulse Ox 98.4 F 63 18 108/67 96 02/28/19 19:40 02/28/19 19:40 02/28/19 19:40 02/28/19 19:40 02/28/19 19:40 Medical Decision Making - Medical Decision Making 02/28/19 20:44 Sign out received from RAYA Kaufman. Pt is a 43yo woman with profound mental retardation, h/o head banging who presents with a superficial head laceration after hitting her face into a table at dinner. She was evaluated in fast track but was found to require sedation to complete CT head and CT face, and she was sent to the main ED for the remainder of her workup. - 2mg IM ativan ordered for scan - Will take for CT after givin meds 02/28/19 21:54 - Ativan given, now calm - CT completed. Dispo pending imaging results 02/28/19 22:53 - CT's without acute injury - Examined laceration w/ Dr Villatoro, does not require repair. Cleaned. - Will d/c home Seen and discussed with Dr Villatoro. Tessa Donaldson PGY1 *DC/Admit/Observation/Transfer Diagnosis at time of Disposition: Closed head injury Qualifiers: Encounter type: initial encounter Qualified Code(s): S09.90XA - Unspecified injury of head, initial encounter Laceration of scalp Qualifiers: Encounter type: initial encounter Qualified Code(s): S01.01XA - Laceration without foreign body of scalp, initial encounter - Discharge Dispostion Disposition: HOME Decision to Admit order: No - Referrals - Patient Instructions Printed Discharge Instructions: DI for Closed Head Injury Additional Instructions: Discharge Instructions: You were seen in the ED for a head injury. You had a CT scan that did not show any serious injuries. Please continue to take all your regular home medications as prescribed. You may use acetaminophen 650mg every 6-8 hours as needed for pain Apply ice for pain and swelling. Continue to use your helmet to prevent additional injury. Follow up with your regular doctor within the next 2-3 days. Seek immediate care for any additional injury, excessive sleepiness, multiple episodes of vomiting (2+ per hour for 2 or more hours), or any other medical emergency. - Post Discharge Activity
[2019-02-28] MEDS ORDERED: LORazepam 2 MG/ML SDV VIAL ONE (21:18)
[2019-03-01 01:27] VITALS: BP 110/70; PULSE 65; TEMP 98.6
== END 2019-02-28 23:50 | disposition home or self-care (01) ==
LOC: JER 19:13 → JERFT 19:13 → JER 23:50
PROC: 3E0233Z Introduction of Anti-inflammatory into Muscle, Percutaneous Approach (ICD-10-PCS; principal; 2019-02-28)
DX: S01.112A Laceration without foreign body of left eyelid and periocular area, initial encounter (principal); W22.8XXA Striking against or struck by other objects, initial encounter; Y93.89 Activity, other specified; Y92.190 Kitchen in other specified residential institution as the place of occurrence of the external cause; Y99.8 Other external cause status; G80.8 Other cerebral palsy; F73 Profound intellectual disabilities; G40.909 Epilepsy, unspecified, not intractable, without status epilepticus; F91.1 Conduct disorder, childhood-onset type
CPT/HCPCS: 70450-TC; 70486-TC; 96372; 99283-25

== ENCOUNTER 2019-05-17 12:31 | Emergency (ER) | payer OTHER ==
--- NOTE | 2019-05-17 12:39 | PDOC ---
Rapid Medical Evaluation Time Seen by Provider: 05/17/19 12:36 Medical Evaluation: Allergies Allergy/AdvReac Type Severity Reaction Status Date / Time wheat dextrin Allergy Verified 02/28/19 19:44 [From Es (wheat dextrin)] 05/17/19 12:37 The patient is a 43 y/o F from [place] who presents to the ER for a bump to the top of her lip. Her care take states that she had a pimple on Thursday that was scratched. She notes today that her upper lip is red and swollen. Denies fevers Exam: Swollen upper L lip with scratched pimple Orders: Nothing Pt to proceed to the ER for further evaluation Discharge Disposition - Diagnosis Swollen upper lip - Referrals - Patient Instructions - Post Discharge Activity
[2019-05-17 12:40] VITALS: BP 117/75; PULSE 67; TEMP 98; BMI 22.1
--- NOTE | 2019-05-17 13:02 | PDOC ---
History of Present Illness - General Chief Complaint: Edema Stated Complaint: SWOLLEN UPPER LIP/LUMP Time Seen by Provider: 05/17/19 12:36 - History of Present Illness Initial Comments: 05/17/19 12:57 43-year-old female presents for evaluation with her care providers from the facility where she resides for an irritating red spot which is been on her upper lip for 2 days. Patient is nonverbal. Past History - Past Medical History Allergies/Adverse Reactions: Allergies Allergy/AdvReac Type Severity Reaction Status Date / Time wheat dextrin Allergy Verified 05/17/19 12:40 [From Es (wheat dextrin)] Home Medications: Ambulatory Orders Carbamazepine [Tegretol -] 400 mg PO BID 08/29/16 Clomipramine HCl [Anafranil] 150 mg PO HS 08/29/16 Fluphenazine HCl 1 mg PO DAILY 08/29/16 Lamotrigine 200 mg PO HS 08/29/16 Pedi Multivit #22/Vit D3/Vit K [Multivitamins Chewables Tablet] 1 each PO DAILY 08/29/16 Sennosides [Senna] 8.6 mg PO DAILY 07/06/17 Clonazepam 1 mg PO TID 11/18/17 Benztropine Mesylate 2 mg PO DAILY 09/29/18 Carbamide Peroxide 6.5% [Debrox -] 4 drop OT TID 09/29/18 Docusate Calcium 240 mg PO BID 09/29/18 Naltrexone HCl 50 mg PO DAILY 02/28/19 Cephalexin [Keflex] 500 mg PO QID #40 capsule 05/17/19 Sulfamethoxazole/Trimethoprim [Bactrim Ds -] 1 tab PO BID #14 tablet 05/17/19 Anemia: No Asthma: No Cancer: No Cardiac Disorders: No CVA: No COPD: No CHF: No DVT: No Dementia: No Diabetes: No GI Disorders: No Disorders: No HTN: No Hypercholesterolemia: No Liver Disease: No Psychiatric Problems: Yes (self aggressive behavior,m.r) Seizures: Yes (convulsive epilepsy,infantile cerebral palsy) Thyroid Disease: No - Surgical History Abdominal Surgery: No Appendectomy: No Cardiac Surgery: No Cholecystectomy: No Lung Surgery: No Neurologic Surgery: Yes Orthopedic Surgery: No - Immunization History Td Vaccination: Yes TDAP Vaccination: Yes Immunization Up to Date: Yes - Suicide/Smoking/Psychosocial Hx Smoking Status: No Smoking History: Unknown if ever smoked Have you smoked in the past 12 months: No Number of Cigarettes Smoked Daily: 0 Information on smoking cessation initiated: No Hx Alcohol Use: No Drug/Substance Use Hx: No Substance Use Type: None Hx Substance Use Treatment: No Review of Systems - Review of Systems Able to Perform ROS?: No Constitutional: No: Fever *Physical Exam - Vital Signs Last Vital Signs Temp Pulse Resp BP Pulse Ox 98.0 F 67 16 117/75 100 05/17/19 12:38 05/17/19 12:38 05/17/19 12:38 05/17/19 12:38 05/17/19 12:38 - Physical Exam Comments: 05/17/19 12:59 the upper lip is swollenthe right side of the upper lipis mildly erythemic there is no induration Medical Decision Making - Medical Decision Making 05/17/19 13:[address] patient on a course of Bactrim and Keflex and have her follow-up with her PCP *DC/Admit/Observation/Transfer Diagnosis at time of Disposition: Swollen upper lip - Discharge Dispostion Disposition: HOME Condition at time of disposition: Stable Decision to Admit order: No - Prescriptions Prescriptions: Cephalexin [Keflex] 500 mg PO QID #40 capsule Sulfamethoxazole/Trimethoprim [Bactrim Ds -] 1 tab PO BID #14 tablet - Referrals Referrals: Ami Gibbs MD [Staff Physician] - - Patient Instructions Additional Instructions: History the antibiotics as directed. Return to the emergency room for worsening symptoms. Return to the emergency room for any fever or change in baseline follow-up with primary care physician in 1-2 days without fail for further evaluation and treatment options. - Post Discharge Activity
== END 2019-05-17 13:56 ==
LOC: JERFT 12:31
DX: R22.0 Localized swelling, mass and lump, head (principal); F79 Unspecified intellectual disabilities; F91.1 Conduct disorder, childhood-onset type; G80.8 Other cerebral palsy; G40.909 Epilepsy, unspecified, not intractable, without status epilepticus
CPT/HCPCS: 99281-25

== ENCOUNTER 2019-07-12 14:55 | Emergency (ER) | payer OTHER ==
--- NOTE | 2019-07-12 15:03 | PDOC ---
Rapid Medical Evaluation Time Seen by Provider: 07/12/19 15:00 Medical Evaluation: Allergies Allergy/AdvReac Type Severity Reaction Status Date / Time wheat dextrin Allergy Verified 05/17/19 12:40 [From Benefiber (wheat dextrin)] 07/12/19 15:01 CC: left eye swelling s/p self punching PE: Nonverbal. erythema surrounding left eye. No Orbital crepitus. Orders: CT facial bones Patient will proceed to ED for continued evaluation. 07/12/19 15:02 Discharge Disposition - Diagnosis Left facial swelling - Referrals - Patient Instructions - Post Discharge Activity
[2019-07-12 15:05] VITALS: BP 123/79; PULSE 92; TEMP 98.4; BMI 21.1
--- NOTE | 2019-07-12 17:21 | PDOC ---
History of Present Illness - General Chief Complaint: Injury Stated Complaint: SWOLLEN FACE Time Seen by Provider: 07/12/19 15:00 - History of Present Illness Initial Comments: 07/12/19 17:15 CHIEF COMPLAINT: L eye swelling HISTORY OF PRESENT ILLNESS: 43 yo F with hx of developmental delay and self- injury presents to fast track with swelling to L eye. Per SNF staff, patient was in her "program" when the staff alerted the facility that the patient had swelling to the L eye. Patient is at baseline nonverbal and unresponsive to verbal commands. No recent travel or sick contacts. PAST MEDICAL HISTORY: developmental delay, self injury FAMILY HISTORY: Denies SOCIAL HISTORY: Denies tobacco, alcohol, illicit drug use. SURGICAL HISTORY: Denies ALLERGIES: wheat dextrin REVIEW OF SYSTEMS General/Constitutional: Denies fever or chills. Denies weakness, weight change. HEENT: Denies change in vision. Denies ear pain or discharge. Denies sore throat. Cardiovascular: Denies chest pain or shortness of breath. Respiratory: Denies cough, wheezing, or hemoptysis. Gastrointestinal: Denies nausea, vomiting, diarrhea or constipation. Denies rectal bleeding. Genitourinary: Denies dysuria, frequency, or change in urination. Musculoskeletal: Denies joint or muscle swelling or pain. Denies neck or back pain. Skin: Redness and swelling to L eye. Neurologic: Denies headache, vertigo, loss of consciousness, or loss of sensation. PHYSICAL EXAM General Appearance: Well-appearing, appropriately dressed. No apparent distress , no intoxication. HEENT: Edema to L eye. No crepitus or deformity noted. EOMI, PERRLA, normal ENT inspection, normal voice, TMs normal, pharynx normal. No conjunctival pallor. No photophobia, scleral icterus. Neck: Supple. Trachea midline. No tenderness, rigidity, carotid bruit, stridor , lymphadenopathy, or thyromegaly. Respiratory/Chest: Lungs CTAB. No shortness of breath, chest tenderness, respiratory distress, accessory muscle use. No crackles, rales, rhonchi, stridor , wheezing, dullness Cardiovascular: RRR. S1, S2. No JVD, murmur, bradycardia, tachycardia. Vascular Pulses: Dorsalis-Pedis (R): 2+, Dorsalis-Pedis (L): 2+ Gastrointestinal/Abdominal: Normal bowel sounds. Abdomen soft, non-distended. No tenderness or rebound tenderness. No organomegaly, pulsatile mass, guarding , hernia, hepatomegaly, splenomegaly. Lymphatic: No adenopathy, tenderness. Musculoskeletal/Extremities: Normal inspection. FROM of all extremities, normal capillary refill. Pelvis Stable. No CVA tenderness. No tenderness to extremities, pedal edema, swelling, erythema or deformity. Integumentary: Appropriate color, dry, warm. No cyanosis, erythema, jaundice or rash Neurologic: training program manager II-XII intact. Fully oriented, alert. Appropriate mood/affect. Motor strength 5/5. No appreciable EOM palsy, facial droop or sensory deficit. Past History - Past Medical History Allergies/Adverse Reactions: Allergies Allergy/AdvReac Type Severity Reaction Status Date / Time wheat dextrin Allergy Verified 05/17/19 12:40 [From Benefiber (wheat dextrin)] Home Medications: Ambulatory Orders Carbamazepine [Tegretol -] 400 mg PO BID 08/29/16 Clomipramine HCl [Anafranil] 150 mg PO HS 08/29/16 Fluphenazine HCl 1 mg PO DAILY 08/29/16 Lamotrigine 200 mg PO HS 08/29/16 Pedi Multivit #22/Vit D3/Vit K [Multivitamins Chewables Tablet] 1 each PO DAILY 08/29/16 Sennosides [Senna] 8.6 mg PO DAILY 07/06/17 Clonazepam 1 mg PO TID 11/18/17 Benztropine Mesylate 2 mg PO DAILY 09/29/18 Carbamide Peroxide 6.5% [Debrox -] 4 drop OT TID 09/29/18 Docusate Calcium 240 mg PO BID 09/29/18 Naltrexone HCl 50 mg PO DAILY 02/28/19 Cephalexin [Keflex] 500 mg PO QID #40 capsule 05/17/19 Sulfamethoxazole/Trimethoprim [Bactrim Ds -] 1 tab PO BID #14 tablet 05/17/19 Anemia: No Asthma: No Cancer: No Cardiac Disorders: No CVA: No COPD: No CHF: No DVT: No Dementia: No Diabetes: No GI Disorders: No Disorders: No HTN: No Hypercholesterolemia: No Liver Disease: No Psychiatric Problems: Yes (self aggressive behavior,m.r) Seizures: Yes (convulsive epilepsy,infantile cerebral palsy) Thyroid Disease: No - Surgical History Abdominal Surgery: No Appendectomy: No Cardiac Surgery: No Cholecystectomy: No Lung Surgery: No Neurologic Surgery: Yes Orthopedic Surgery: No - Immunization History Td Vaccination: Yes TDAP Vaccination: Yes Immunization Up to Date: Yes - Psycho Social/Smoking Cessation Hx Smoking Status: No Smoking History: Never smoked Have you smoked in the past 12 months: No Number of Cigarettes Smoked Daily: 0 Information on smoking cessation initiated: No Hx Alcohol Use: No Drug/Substance Use Hx: No Substance Use Type: None Hx Substance Use Treatment: No *Physical Exam - Vital Signs Last Vital Signs Temp Pulse Resp BP Pulse Ox 98.4 F 92 H 18 123/79 98 07/12/19 15:02 07/12/19 15:02 07/12/19 15:02 07/12/19 15:02 07/12/19 15:02 ED Treatment Course - RADIOLOGY Radiology Studies Ordered: Category Date Time Status HEAD CT WITHOUT CONTRAST [CT] Stat CT Scan 07/12/19 15:47 Completed Medical Decision Making - Medical Decision Making 07/12/19 17:18 43yo F with hx of developmental delay and self-injury presents to fast track with swelling to L eye. -head/facial bone CT ordered in E CTs negative for acute findings. Discharge - Discharge Information Problems reviewed: Yes Clinical Impression/Diagnosis: Left facial swelling, Self-inflicted injury Condition: Stable Disposition: ASSISTED FACILITY - Admission No - Follow up/Referral - Patient Discharge Instructions - Post Discharge Activity
== END 2019-07-12 17:32 ==
LOC: JERFT 14:55
DX: S05.8X1A Other injuries of right eye and orbit, initial encounter (principal); R22.0 Localized swelling, mass and lump, head; Y33.XXXA Other specified events, undetermined intent, initial encounter; Y93.89 Activity, other specified; Y92.198 Other place in other specified residential institution as the place of occurrence of the external cause; Y99.8 Other external cause status; G80.8 Other cerebral palsy; F79 Unspecified intellectual disabilities; G40.909 Epilepsy, unspecified, not intractable, without status epilepticus; Z91.5 Personal history of self-harm; Z91.018 Allergy to other foods
CPT/HCPCS: 70450-TC; 70486-TC; 99281-25

== ENCOUNTER 2019-10-09 10:02 | Emergency (ER) | payer OTHER ==
[2019-10-09 10:12] VITALS: BP 123/79; PULSE 98; BMI 22.9
--- NOTE | 2019-10-09 11:39 | PDOC ---
History of Present Illness - General Chief Complaint: Edema Stated Complaint: SWOLLEN JAW Time Seen by Provider: 10/09/19 10:45 History Source: Patient Exam Limitations: Physical Impairment - History of Present Illness Initial Comments: 10/09/19 10:31 44-year-old female brought in for swelling to the left lower mandible noted this morning upon awakening. As per staff patient was noted with redness to the area and denied any fever. Staff denies any injury to the area although patient does wear a soft helmet due to self-inflicted injuries normally to the left side of her face. Patient has had no recent dental work or any noted dental caries Timing/Duration: reports: this morning Severity: Yes: mild Location: reports: face Respiratory Risk Factors: reports: no cause identified Associated Symptoms: reports: other Past History - Travel Traveled outside of the country in the last 30 days: No Close contact w/someone who was outside of country & ill: No - Past Medical History Allergies/Adverse Reactions: Allergies Allergy/AdvReac Type Severity Reaction Status Date / Time wheat dextrin Allergy Verified 10/09/19 10:12 [From Benefiber (wheat dextrin)] Home Medications: Ambulatory Orders Carbamazepine [Tegretol -] 400 mg PO BID 08/29/16 Clomipramine HCl [Anafranil] 150 mg PO HS 08/29/16 Fluphenazine HCl 2 mg PO DAILY 08/29/16 Lamotrigine 400 mg PO HS 08/29/16 Pedi Multivit #22/Vit D3/Vit K [Multivitamins Chewables Tablet] 1 each PO DAILY 08/29/16 Sennosides [Senna] 8.6 mg PO DAILY 07/06/17 Clonazepam 1 mg PO TID 11/18/17 Benztropine Mesylate 2 mg PO HS 09/29/18 Docusate Calcium 240 mg PO BID 09/29/18 Chlorpromazine [Thorazine -] 100 mg PO HS 09/24/19 Chlorpromazine [Thorazine -] 200 mg PO DAILY 09/24/19 Polyethylene Glycol 3350 17 gm PO BID 09/24/19 Clindamycin [Cleocin -] 300 mg PO TID #21 capsule 10/09/19 Anemia: No Asthma: No Cancer: No Cardiac Disorders: No CVA: No COPD: No CHF: No DVT: No Dementia: No Diabetes: No GI Disorders: No Disorders: No HTN: No Hypercholesterolemia: No Liver Disease: No Psychiatric Problems: Yes (self aggressive behavior,m.r) Seizures: Yes (convulsive epilepsy,infantile cerebral palsy) Thyroid Disease: No - Surgical History Abdominal Surgery: No Appendectomy: No Cardiac Surgery: No Cholecystectomy: No Lung Surgery: No Neurologic Surgery: Yes Orthopedic Surgery: No - Immunization History Td Vaccination: Yes TDAP Vaccination: Yes Immunization Up to Date: Yes - Psycho Social/Smoking Cessation Hx Smoking Status: No Smoking History: Never smoked Have you smoked in the past 12 months: No Number of Cigarettes Smoked Daily: 0 Hx Alcohol Use: No Drug/Substance Use Hx: No Substance Use Type: None Hx Substance Use Treatment: No Patient Lives Alone: No Lives with/in: jail Review of Systems - Review of Systems Able to Perform ROS?: Yes Constitutional: No: Symptoms Reported HEENTM: No: Symptoms Reported Respiratory: No: Symptoms reported ABD/GI: No: Vomiting Integumentary: Yes: Erythema, Lumps *Physical Exam - Vital Signs Last Vital Signs Temp Pulse Resp BP Pulse Ox 98 H 18 123/79 99 10/09/19 10:04 10/09/19 10:04 10/09/19 10:04 10/09/19 10:04 - Physical Exam General Appearance: Yes: Nourished, Appropriately Dressed. No: Apparent Distress HEENT: positive: TMs Normal, Pharynx Normal (No dental caries oral abscess, or ulcers) Neck: positive: Supple Respiratory/Chest: positive: Lungs Clear, Normal Breath Sounds. negative: Respiratory Distress, Accessory Muscle Use Cardiovascular: positive: Regular Rhythm, Regular Rate. negative: Murmur Integumentary: positive: Other (Noted erythema to the left mandible approximately 4 x 3 cm in diameter with erythematous papule to center. No palpable fluctuance or increased warmth) Neurologic: positive: Motor Strength 5/5 (Ambulatory) Medical Decision Making - Medical Decision Making 10/09/19 11:34 Complaint: erythematous red swollen left mandible noted this morning Chief complaint: Patient with 4 x 3 cm erythematous erythematous mass to the left mandible. Surrounding skin intact Plan: Clindamycin for soft tissue cellulitis although with supportive care instructions as far as warm soaks and avoid irritation from soft helmet Discharge - Discharge Information Problems reviewed: Yes Clinical Impression/Diagnosis: Facial cellulitis Condition: Good Disposition: HOME - Additional Discharge Information Prescriptions: Clindamycin [Cleocin -] 300 mg PO TID #21 capsule - Follow up/Referral Referrals: Jose Manuel Gross Jr [Primary Care Provider] - - Patient Discharge Instructions Patient Printed Discharge Instructions: DI for Cellulitis -- Adult Additional Instructions: Take antibiotics as prescribed. Applied warm soaks to the affected area for the next 3 days as much as she can tolerate. Avoid irritation from soft helmet - Post Discharge Activity
== END 2019-10-09 11:43 | disposition home or self-care (01) ==
LOC: JERFT 10:02
DX: L03.211 Cellulitis of face (principal); F79 Unspecified intellectual disabilities; F91.1 Conduct disorder, childhood-onset type; G80.8 Other cerebral palsy; G40.802 Other epilepsy, not intractable, without status epilepticus; Z91.5 Personal history of self-harm; Z91.018 Allergy to other foods
CPT/HCPCS: 99281-25

== ENCOUNTER 2020-06-15 15:30 | Inpatient (IN) | payer OTHER ==
[2020-06-15 17:17] LABS: BASO % 0.2 % (0-2.0); EOS % 1.3 % (0-4.5); HEMATOCRIT 35.4 % (32.4-45.2); HEMOGLOBIN 11.6 GM/dL (10.7-15.3); LYMPH % 7.7 % (8-40); MCH 29.2 pg (25.7-33.7); MCHC 32.8 g/dl (32.0-36.0); MEAN PLT VOLUME 10.3 fl (7.5-11.1); MONO % 13.4 % (3.8-10.2); NEUT % 77.4 % (42.8-82.8); PLATELET COUNT 222 K/MM3 (134-434); RBC 3.98 M/mm3 (3.60-5.2); RDW 13.1 % (11.6-15.6); WHITE BLOOD COUNT 19.3 K/mm3 (4.0-10.0)
[2020-06-15 17:49] LABS: ALBUMIN 3.1 g/dl (3.4-5.0); BILIRUBIN,TOTAL 0.1 mg/dL (0.2-1); BLOOD UREA NITROGEN 12.2 mg/dL (7-18); CALCIUM 8.6 mg/dL (8.5-10.1); CREATININE 0.5 mg/dL (0.55-1.3); POTASSIUM 3.8 mmol/L (3.5-5.1); TOT PROT 6.6 g/dl (6.4-8.2)
--- NOTE | 2020-06-15 18:11 | PDOC ---
History of Present Illness - General Chief Complaint: Abscess Boil Stated Complaint: BLISTER LT HAND Time Seen by Provider: 06/15/20 16:05 History Source: Care Provider Exam Limitations: Clinical Condition - History of Present Illness Initial Comments: 06/15/20 18:08 44F with a PMH of severe intellectual disabilities, dystonia, epilepsy, and blindness presents to the emergency department [facility] from [place] with L arm abscess with left arm/hand swelling. Pt unable to provide hx, but revenue agent at bedside providing history. The redness and swelling started a few days ago, and abscess/pus formation was noted today by nurses. PMH: as in HPI SH: see below Allergies: NKDA ROS: unable to obtain due to severe intellectual disability PE GENERAL: Awake, alert, unable to assess orientation due to MR HEAD: No signs of trauma, normocephalic, atraumatic EYES: PERRLA, EOMI, sclera anicteric, conjunctiva clear ENT: Auricles normal inspection, hearing grossly normal, nares patent, moist mucosa, oropharynx clear without exudates. NECK: Normal ROM, supple, no LAD, JVD, or masses EXTREMITIES: Left arm erythema, warmth, and swelling; L arm abscess with 2cm induration SKIN: L arm erythema Assessment and Plan 1. I&D of left arm abscess Daniel Vega, PGY1 Emergency Medicine Past History - Medical History Allergies/Adverse Reactions: Allergies Allergy/AdvReac Type Severity Reaction Status Date / Time wheat dextrin Allergy Verified 06/15/20 16:07 [From Benefiber (wheat dextrin)] Home Medications: Ambulatory Orders Carbamazepine [Tegretol -] 400 mg PO BID 08/29/16 Clomipramine HCl [Anafranil] 150 mg PO HS 08/29/16 Fluphenazine HCl 2 mg PO DAILY 08/29/16 Lamotrigine 400 mg PO HS 08/29/16 Pedi Multivit #22/Vit D3/Vit K [Multivitamins Chewables Tablet] 1 each PO DAILY 08/29/16 Sennosides [Senna] 8.6 mg PO DAILY 07/06/17 Clonazepam 1 mg PO TID 11/18/17 Benztropine Mesylate 2 mg PO HS 09/29/18 Docusate Calcium 240 mg PO BID 09/29/18 Chlorpromazine [Thorazine -] 100 mg PO HS 09/24/19 Chlorpromazine [Thorazine -] 200 mg PO DAILY 09/24/19 Polyethylene Glycol 3350 17 gm PO BID 09/24/19 Clindamycin [Cleocin -] 300 mg PO TID #21 capsule 10/09/19 Clindamycin [Cleocin -] 300 mg PO TID #21 capsule 10/09/19 Anemia: No Asthma: No Cancer: No Cardiac Disorders: No CVA: No COPD: No CHF: No DVT: No Dementia: No Diabetes: No GI Disorders: No Disorders: No HTN: No Hypercholesterolemia: No Liver Disease: No Psychiatric Problems: Yes (self aggressive behavior,m.r) Seizures: Yes (convulsive epilepsy,infantile cerebral palsy) Thyroid Disease: No - Surgical History Abdominal Surgery: No Appendectomy: No Cardiac Surgery: No Cholecystectomy: No Lung Surgery: No Neurologic Surgery: Yes Orthopedic Surgery: No - Reproductive History Is Patient Now?: No - Immunization History Td Vaccination: Yes TDAP Vaccination: Yes Immunization Up to Date: Yes - Psycho-Social/Smoking History Smoking Status: No Smoking History: Never smoked Have you smoked in the past 12 months: No Number of Cigarettes Smoked Daily: 0 Information on smoking cessation initiated: No - Substance Abuse Hx (Audit-C & DAST Scrn) How often the patient has a drink containing alcohol: Never Score: In Men: 4 or > Positive; In Women: 3 or > Positive: 0 Screen Result (Pos requires Nsg. Audit-10AR): Negative In the last yr the pt used illegal drug/Rx for NonMed reason: No Score: Yes response is considered Positive: 0 Screen Result (Positive result requires Nsg. DAST-10): Negative *Physical Exam - Vital Signs Last Vital Signs Temp Pulse Resp BP Pulse Ox 98.6 F 89 18 115/58 L 99 06/15/20 17:42 06/15/20 17:42 06/15/20 17:42 06/15/20 17:42 06/15/20 17:42 Procedures - Incision and Drainage I&D Site: Left: Arm Betadine cleansed: No (alcohol ) Anesthesia: 1% Lidocaine Volume(ml): 3 Blade Size: 11 Plain Packing: Yes Complications: none Dressing: Yes ED Treatment Course - LABORATORY CBC & Chemistry Diagram: 06/15/20 16:45 06/15/20 16:45 - ADDITIONAL ORDERS Additional order review: Laboratory Results 06/15/20 16:45 Sodium 142 Potassium 3.8 Chloride 110 H Carbon Dioxide 27 Anion Gap 5 L BUN 12.2 Creatinine 0.5 L Est GFR (CKD-EPI)AfAm 135.47 Est GFR (CKD-EPI)NonAf 116.89 Random Glucose 115 H Calcium 8.6 Total Bilirubin 0.1 L AST 6 L ALT 21 Alkaline Phosphatase 92 Total Protein 6.6 Albumin 3.1 L 06/15/20 16:45 RBC 3.98 MCV 89.0 MCHC 32.8 RDW 13.1 MPV 10.3 Neutrophils % 77.4 Lymphocytes % 7.7 L D Monocytes % 13.4 H Eosinophils % 1.3 Basophils % 0.2 Medical Decision Making - Medical Decision Making 06/15/20 20:29 44F with a PMH of severe intellectual disabilities, dystonia, epilepsy, and blindness presents to the emergency department [facility] with L arm abscess with left arm/hand swelling. On exam, left arm erythema, swelling, and abscess with ~2cm induration. I&D of abscess was preformed with drainage of roughly 3cc of purulent material and packed. Labs were notable for leukocytosis otherwise wnl. 06/15/20 20:34 Pt started on vanc and zosyn. Will be admitted to m/s for IV abx. Discharge - Discharge Information Problems reviewed: Yes Clinical Impression/Diagnosis: Abscess, Cellulitis of arm, left Condition: Stable Disposition: HOME - Admission Yes - Follow up/Referral - Patient Discharge Instructions - Post Discharge Activity
[2020-06-15] MEDS ORDERED: PIPERACILLIN/TAZOB 3.375 GM 3.375 GM in DEXTROSE 5%-WATER - 50 ML IVPB ONE (18:15)
[2020-06-15] MEDS ORDERED: VANCOMYCIN 1,000 MG in DEXTROSE 5%-WATER - 250 ML IVPB ONE (18:15)
[2020-06-15] MEDS ORDERED: VANCOMYCIN 1 GRAM (PRE-DOCKED) 1,000 MG/250 ML BAG IVPB ONE (18:20)
[2020-06-15] MEDS ORDERED: PIPERACILLIN/TAZOB 3.375 GM 3.375 GM/50 ML BAG IVPB ONE ×3 (18:20→20:10)
--- NOTE | 2020-06-15 19:31 | PN ---
Teaching Attending Note Name of Resident: Wilmar Maxwell ATTENDING PHYSICIAN STATEMENT I saw and evaluated the patient. I reviewed the resident's note and discussed the case with the resident. I agree with the resident's findings and plan as documented. SUBJECTIVE: Patient is a 44 year old woman with a PMH of Profound intellectual disabilities, Dystonia, Epilepsy and Blindness, who presents to the ER from [facility] with left hand abscess with pain, erythema and edema for several days. As per nursing staff, the area seemed more erythematous and collecting pus. No reported chest pain, shortness of breath, abdominal pain, fever, chills, vomiting, diarrhea, constipation, frequency, melena, hematochezia or hematuria. No reported history of alcohol, tobacco or illicit drug use. No reported sick contacts or recent travels. Family history is unremarkable. OBJECTIVE: Alert Vital Signs Period Temp Pulse Resp BP Sys/Amaral Pulse Ox Last 24 Hr 98.5 F-98.6 F 89-96 16-18 114-115/53-58 99-99 HEENT: No Jaundice, eye redness or discharge, PERRLA, EOMI. Normocephalic, atraumatic. External ears are normal and hearing is grossly intact. No nasal discharge. Neck: Supple, nontender. No palpable adenopathy or thyromegaly. No JVD Chest: Good effort. Clear to auscultation and percussion. Heart: Regular. No S3, rub or murmur Abdomen: Not distended, soft, nontender and no HSM. No rebound or guarding. Normal bowel sounds. Ext: Peripheral pulses intact. No leg edema. Left forearm erythema, warmth, and swelling with an associated abscess. Skin: Warm and dry. No petechiae, rash or ecchymosis. Neuro: Alert. CN 2-12 grossly intact. Sensation grossly intact in all four extremities and DTR are symmetric. Psych: Unable to assess. Home Medications Medication Instructions Recorded Carbamazepine [Tegretol -] 400 mg PO BID 08/29/16 Clomipramine HCl [Anafranil] 150 mg PO HS 08/29/16 Fluphenazine HCl 2 mg PO DAILY 08/29/16 Lamotrigine 400 mg PO HS 08/29/16 Pedi Multivit #22/Vit D3/Vit K 1 each PO DAILY 08/29/16 [Multivitamins Chewables Tablet] Sennosides [Senna] 8.6 mg PO DAILY 07/06/17 Clonazepam 1 mg PO TID 11/18/17 Benztropine Mesylate 2 mg PO HS 09/29/18 Docusate Calcium 240 mg PO BID 09/29/18 Chlorpromazine [Thorazine -] 100 mg PO HS 09/24/19 Chlorpromazine [Thorazine -] 200 mg PO DAILY 09/24/19 Polyethylene Glycol 3350 17 gm PO BID 09/24/19 Clindamycin [Cleocin -] 300 mg PO TID #21 capsule 10/09/19 Clindamycin [Cleocin -] 300 mg PO TID #21 capsule 10/09/19 Abnormal Lab Results 06/15/20 06/15/20 16:45 16:45 WBC 19.3 H Absolute Neuts (auto) 15.0 H Lymphocytes % 7.7 L D Monocytes % 13.4 H Chloride 110 H Anion Gap 5 L Creatinine 0.5 L Random Glucose 115 H Total Bilirubin 0.1 L AST 6 L Albumin 3.1 L Current Medications Generic Name Dose Route Start Last Admin Trade Name Freq PRN Reason Stop Dose Admin Enoxaparin Sodium 40 mg 06/16/20 10:00 Lovenox - SQ DAILY [facility] Piperacillin Sod/Tazobactam 50 mls @ 100 mls/hr 06/16/20 06:00 Sod 3.375 gm/ Dextrose IVPB 06/16/20 06:29 ONCE ONE Protocol Vancomycin HCl 1,000 mg 06/16/20 06:00 Vancomycin (Pre-Docked) IVPB 06/16/20 06:01 ONCE ONE Protocol ASSESSMENT AND PLAN: 1. Left arm abscess/cellulitis - Will get a CT scan to evaluate abscess. Viral testing for COVID-19 ordered and patient placed on airborne, droplet and contact isolation. ER staff prescribed IV Vancomycin, IV Zosyn for the patient. Will consult ID and also Surgery if a drainable abscess is confirmed. EKG pending. Will get urinalysis and implement fall/aspiration/seizure precautions. Will continue comprehensive care for all of patients comorbid conditions. 2. Hypoalbuminemia - Possibly due to combined effects of malnutrition and inflammation associated with comorbid conditions. Will ensure adequate dietary protein intake and also consult loom tuner. Urinalysis pending. 3. DVT prophylaxis - Lovenox 40 mg SQ q 24 hours. 4. Advance directives - Full code
--- NOTE | 2020-06-15 20:04 | HP ---
CHIEF COMPLAINT: PCP: HISTORY OF PRESENT ILLNESS: 44F with a PMH of severe intellectual disabilities, dystonia, epilepsy, and blindness presents to the emergency department [facility] from [place] with L hand abscess boil with pain. Collateral information was taken by the aide. Spring was noted to have an erythematous forearm of 2 day duration from the elbow to the palm on both the ventral and dorsal aspect. The patient was not seen picking or scratching the arm nor was there any witnessed trauma to the area. Patient was never noted to have had similar symptoms in the past. The health aide noticed increased erythema and swelling that has progressed toward the wrist which prompted the emergency department visit. The site is tender to touch and warm. In the ED the patient was given vanc/zosyn and the wound was drained, packed, and bandaged. Recent Travel: denies PAST MEDICAL HISTORY: as above PAST SURGICAL HISTORY: as above Social History: Smoking: no Alcohol: no Drugs: no Allergies wheat dextrin [From Pufetto (wheat dextrin)] Allergy (Verified 06/15/20 16:07) HOME MEDICATIONS: Home Medications Medication Instructions Recorded Carbamazepine [Tegretol -] 400 mg PO BID 08/29/16 Clomipramine HCl [Anafranil] 150 mg PO HS 08/29/16 Fluphenazine HCl 2 mg PO DAILY 08/29/16 Lamotrigine 400 mg PO HS 08/29/16 Pedi Multivit #22/Vit D3/Vit K 1 each PO DAILY 08/29/16 [Multivitamins Chewables Tablet] Sennosides [Senna] 8.6 mg PO DAILY 07/06/17 Clonazepam 1 mg PO TID 11/18/17 Benztropine Mesylate 2 mg PO HS 09/29/18 Docusate Calcium 240 mg PO BID 09/29/18 Chlorpromazine [Thorazine -] 100 mg PO HS 09/24/19 Chlorpromazine [Thorazine -] 200 mg PO DAILY 09/24/19 Polyethylene Glycol 3350 17 gm PO BID 09/24/19 Clindamycin [Cleocin -] 300 mg PO TID #21 capsule 10/09/19 Clindamycin [Cleocin -] 300 mg PO TID #21 capsule 10/09/19 REVIEW OF SYSTEMS CONSTITUTIONAL: Absent: fever, chills, diaphoresis, generalized weakness, malaise, loss of appetite, weight change HEENT: Absent: rhinorrhea, nasal congestion, throat pain, throat swelling, difficulty swallowing, mouth swelling, ear pain, eye pain, visual changes CARDIOVASCULAR: Absent: chest pain, syncope, palpitations, irregular heart rate, lightheadedness, peripheral edema RESPIRATORY: Absent: cough, shortness of breath, dyspnea with exertion, orthopnea, wheezing, stridor, hemoptysis GASTROINTESTINAL: Absent: abdominal pain, abdominal distension, nausea, vomiting, diarrhea, constipation, melena, hematochezia GENITOURINARY: Absent: dysuria, frequency, urgency, hesitancy, hematuria, flank pain, genital pain PHYSICAL EXAMINATION Vital Signs - 24 hr 06/15/20 06/15/20 15:37 17:42 Temperature 98.5 F 98.6 F Pulse Rate 96 H Pulse Rate [ 89 Apical] Respiratory 16 18 Rate Blood Pressure 114/53 L Blood Pressure 115/58 L [Right Arm] O2 Sat by Pulse 99 99 Oximetry (%) GENERAL: Awake, alert, and fully oriented, in no acute distress. HEAD: Normal with no signs of trauma. EYES: Pupils equal, round and reactive to light, extraocular movements intact, sclera anicteric, conjunctiva clear. No lid lag. EARS, NOSE, THROAT: Ears normal, nares patent, oropharynx clear without exudates. Moist mucous membranes. NECK: Normal range of motion, supple without lymphadenopathy, JVD, or masses. LUNGS: Breath sounds equal, clear to auscultation bilaterally. No wheezes, and no crackles. No accessory muscle use. HEART: Regular rate and rhythm, normal S1 and S2 without murmur, rub or gallop. ABDOMEN: Soft, nontender, not distended, normoactive bowel sounds, no guarding, no rebound, no masses. No hepatomegaly or splenomegaly. MUSCULOSKELETAL: Normal range of motion at all joints. No bony deformities or tenderness. No CVA tenderness. UPPER EXTREMITIES: 2+ pulses, warm, well-perfused. No cyanosis. No clubbing. No peripheral edema. LOWER EXTREMITIES: 2+ pulses, warm, well-perfused. No calf tenderness. No peripheral edema. NEUROLOGICAL: Cranial nerves II-XII intact. Normal speech. Normal gait. PSYCHIATRIC: Cooperative. Good eye contact. Appropriate mood and affect. SKIN: Warm, dry, normal turgor, no rashes or lesions noted, normal capillary refill. Laboratory Results - last 24 hr 06/15/20 06/15/20 16:45 16:45 WBC 19.3 H RBC 3.98 Hgb 11.6 Hct 35.4 MCV 89.0 MCH 29.2 MCHC 32.8 RDW 13.1 Plt Count 222 MPV 10.3 Absolute Neuts (auto) 15.0 H Neutrophils % 77.4 Lymphocytes % 7.7 L D Monocytes % 13.4 H Eosinophils % 1.3 Basophils % 0.2 Nucleated RBC % 0 Sodium 142 Potassium 3.8 Chloride 110 H Carbon Dioxide 27 Anion Gap 5 L BUN 12.2 Creatinine 0.5 L Est GFR (CKD-EPI)AfAm 135.47 Est GFR (CKD-EPI)NonAf 116.89 Random Glucose 115 H Calcium 8.6 Total Bilirubin 0.1 L AST 6 L ALT 21 Alkaline Phosphatase 92 Total Protein 6.6 Albumin 3.1 L ASSESSMENT/PLAN: Ms. Martin is a 44F PMH of severe intellectual disabilities, dystonia, epilepsy, and blindness [facility] with pain #L hand abscess pain control w tylenol IV Wound culture follow up Blood culture follow up Consult placement for ID - Dr. Langley monitor CBC ABX vancomycin and zosyn till further cultures UA #Seizures Continue home Tegretol/Lamotrigine Seizure precautions Aspiration precautions Fall Precautions #Intellectual disability/dystonia Clonazepam Fluphenazine Benztropine Chlorpromazine #FEN Regular diet Gentle fluid hydration repleat lytes #DVT PPX Lovenox SQ #DISPO Full code Admit to Med/surg Family Medical History Family History: As Documented Visit type - Emergency Visit Emergency Visit: Yes ED Registration Date: 06/15/20 Care time: The patient presented to the Emergency Department on the above date and was hospitalized for further evaluation of their emergent condition. - New Patient This patient is new to me today: Yes Date on this admission: 06/16/20 - Critical Care Critical Care patient: No ATTENDING PHYSICIAN STATEMENT I saw and evaluated the patient. I reviewed the resident's note and discussed the case with the resident. I agree with the resident's findings and plan as documented. SUBJECTIVE: OBJECTIVE: ASSESSMENT AND PLAN:
--- NOTE | 2020-06-15 20:17 | PDOC ---
Documentation entered by Carmelo Paredes SCRIBE, acting as scribe for Rosanne Vogel MD. Rosanne Vogel MD: This documentation has been prepared by the Lena higginbotham Xhesika, SCRIBE, under my direction and personally reviewed by me in its entirety. I confirm that the documentation accurately reflects all work, treatment, procedures, and medical decision making performed by me. Attending Attestation - Resident Resident Name: Daniel Vega - ED Attending Attestation I have performed the following: I have examined & evaluated the patient, The case was reviewed & discussed with the resident, I agree w/resident's findings & plan, Exceptions are as noted - HPI HPI: 06/15/20 17:25 44yo F PMhx intellectual disabilities, dystonia, epilepsy, blindness, currently residing at [facility], here with staff for L hand abscess boil with pain, erythema and edema x several days. As per nursing staff, the area seemed more erythematous and collecting pus. no change to baseline behavoir. no fever or chills. did note that the forearm and hand have become swollen. Allergies: Wheat dextrin. Social history: [facility]. 06/15/20 20:12 - Physicial Exam PE: 06/15/20 20:14 awake alert . lungs clear bilat heart rrr no mrg abd soft nt nd ext wwp. left arm with erythema redness. and swelling forearm to hand. left forearm noted for 2 x 3 inch area of fluctuance, erythema. palp abscess. 2 + median ulnar pulses. from at shoulder elbow. nuero awake nonverbal, blind, does not follow. - Medical Decision Making 06/15/20 20:15 44 yo F with left forearm abscess, currently resident at [place]. high risk for mrsa. focused ED ultrasound soft tissue obtained. found to have hypoechoic fluid collection. I &D performed 3 ml Pus expressed. culture obtained, and sent. labs noted for high wbc 19, concerns for coexisting cellulitis entire forearm and hand. given vanco and zosyn admitted to medicine. Discharge - Discharge Information Problems reviewed: Yes Clinical Impression/Diagnosis: Abscess, Cellulitis of arm, left - Follow up/Referral - Patient Discharge Instructions - Post Discharge Activity
[2020-06-16 04:22] LABS: EPI CELLS >36 /uL (0-25.1); HYALINE CASTS 16 /uL (0-3.1); URINE APPEARANCE CLOUDY; URINE BACTERIA 31 /uL (0-1359); URINE BILIRUBIN NEGATIVE (NEGATIVE); URINE COLOR YELLOW; URINE GLUCOSE (UA) NEGATIVE (NEGATIVE); URINE KETONE NEGATIVE (NEGATIVE); URINE LEUK ESTERASE NEGATIVE (NEGATIVE); URINE NITRITE NEGATIVE (NEGATIVE); URINE PROTEIN 1+ (NEGATIVE); URINE RBC 37 /uL (0-23.9); URINE WBC 26 /uL (0-25.8)
[2020-06-16] MEDS ORDERED: PIPERACILLIN/TAZOB 3.375 GM 3.375 GM in DEXTROSE 5%-WATER - 50 ML IVPB ONE (06:00)
[2020-06-16] MEDS ORDERED: VANCOMYCIN 1 GM in D5W (PRE-DOCKED) 1,000 MG/250 ML IVPB ONE (06:00)
[2020-06-16] MEDS ORDERED: PIPERACILLIN/TAZOB 3.375 GM 3.375 GM/50 ML BAG IVPB ONE ×2 (06:02→10:16)
[2020-06-16 06:27] LABS: HEMATOCRIT 39.2 % (32.4-45.2); HEMOGLOBIN 12.8 GM/dL (10.7-15.3); MCH 29.3 pg (25.7-33.7); MCHC 32.7 g/dl (32.0-36.0); MEAN CELL VOLUME 89.5 fl (80-96); MEAN PLT VOLUME 9.7 fl (7.5-11.1); PLATELET COUNT 240 K/MM3 (134-434); RBC 4.39 M/mm3 (3.60-5.2); RDW 12.9 % (11.6-15.6); WHITE BLOOD COUNT 14.7 K/mm3 (4.0-10.0)
[2020-06-16] MEDS ORDERED: VANCOMYCIN 1 GRAM (PRE-DOCKED) 1,000 MG/250 ML BAG IVPB ONE ×2 (06:35→10:16)
[2020-06-16 07:01] LABS: BILIRUBIN,TOTAL 0.4 mg/dL (0.2-1); BLOOD UREA NITROGEN 7.7 mg/dL (7-18); CALCIUM 8.5 mg/dL (8.5-10.1); CREATININE 0.4 mg/dL (0.55-1.3); PHOSPHOROUS 3.5 mg/dL (2.5-4.9); POTASSIUM 3.6 mmol/L (3.5-5.1); TOT PROT 6.8 g/dl (6.4-8.2)
--- NOTE | 2020-06-16 08:07 | PN ---
Progress Note (short form) - Note Progress Note: S: No acute events. No fevers. From [place] with worsening cellulitic changes of hand found to have fluctuance and admitted. Vital Signs Temperature 98.1 F 06/16/20 14:00 Pulse Rate 87 06/16/20 14:00 Respiratory Rate 18 06/16/20 14:00 Blood Pressure 118/76 06/16/20 14:00 O2 Sat by Pulse Oximetry (%) 98 06/16/20 14:00 PE: GEN: NAD, awake, alert, limited due to clinical history LUNG: CTA without wheezes or rales despite poor inspiratory effort CARD: RRR no murmurs EXT: L arm erythema noted with fluctuance near hand noted, warm, CBC, BMP 06/16/20 06:09 06/16/20 06:09 Hepatic Panel Total Bilirubin 0.4 mg/dL (0.2-1) 06/16/20 06:09 AST 7 U/L (15-37) L 06/16/20 06:09 ALT 22 U/L (13-61) 06/16/20 06:09 Alkaline Phosphatase 87 U/L (45-117) 06/16/20 06:09 Albumin 3.0 g/dl (3.4-5.0) L 06/16/20 06:09 Microbiology 06/15/20 18:30 Abscess Gram Stain - Final Active Medications Benztropine Mesylate (Cogentin -) 2 mg PO HS [facility] Carbamazepine (Tegretol -) 400 mg PO BID [facility] Last Admin: 06/16/20 09:49 Dose: 400 mg Documented by: Chlorpromazine HCl (Thorazine -) 200 mg PO DAILY [facility] Last Admin: 06/16/20 09:49 Dose: 200 mg Documented by: Chlorpromazine HCl (Thorazine -) 100 mg PO HS [facility] Clonazepam (Klonopin -) 1 mg PO TID [facility] Last Admin: 06/16/20 14:18 Dose: 1 mg Documented by: Enoxaparin Sodium (Lovenox -) 40 mg SQ DAILY [facility] Last Admin: 06/16/20 09:49 Dose: 40 mg Documented by: Fluphenazine HCl (Prolixin) 2 mg PO DAILY [facility] Last Admin: 06/16/20 09:49 Dose: 2 mg Documented by: Piperacillin Sod/Tazobactam (Sod 3.375 gm/ Dextrose) 50 mls @ 100 mls/hr IVPB Q8H-IV [facility]; Protocol Vancomycin HCl 750 mg/ (Dextrose) 150 mls @ 150 mls/hr IVPB Q24H [facility]; Protocol Piperacillin Sod/Tazobactam (Sod 3.375 gm/ Dextrose) 50 mls @ 100 mls/hr IVPB Q8H-IV [facility]; Protocol Stop: 06/17/20 02:29 Last Admin: 06/16/20 11:39 Dose: 100 mls/hr Documented by: Vancomycin HCl 750 mg/ (Dextrose) 250 mls @ 250 mls/hr IVPB Q8H-IV [facility] Stop: 06/17/20 02:59 Last Admin: 06/16/20 14:35 Dose: 250 mls/hr Documented by: Lamotrigine (Lamictal -) 400 mg PO HS [facility] Assessment and Plan: L Forearm Abscess History of Epilepsy History of developmental disability History of Blindness History of Self-injury --Patient with cellulitis and associated abscess --Continue Zosyn and Vancomycin --ID consulted; appreciate recommendations --Abscess gram stain noted with few gram + cocci; f/u finalized cultures and gram stain --Continue antiepileptic home doses --Continue behavioural modification medications due to her risk of self-injury and behavioural problems related to developmental delay --May use 1:1 if needed Dispo: Monitor M/S Glynn Ibrahim DO - IM
[2020-06-16] MEDS ORDERED: ENOXAPARIN NA (PORCINE) 40 MG/0.4 ML DISP.SYRIN SQ ONE (09:39)
[2020-06-16] MEDS ORDERED: carBAMazepine 200 MG TABLET ONE (09:39)
[2020-06-16] MEDS: ENOXAPARIN NA (PORCINE) 40 MG/0.4 ML DISP.SYRIN SQ SCH (09:49)
[2020-06-16] MEDS: chlorproMAZINE HCL 100 MG TABLET PO SCH ×2 (09:49→23:12)
[2020-06-16] MEDS: carBAMazepine 200 MG TABLET PO SCH ×2 (09:49→23:12)
[2020-06-16] MEDS: PIPERACILLIN/TAZOB 3.375 GM 3.375 GM in DEXTROSE 5%-WATER - 50 ML IVPB SCH ×2 (11:39→18:32)
[2020-06-16] MEDS ORDERED: PIPERACILLIN/TAZOB 2.25 GM 2.25 GM in DEXTROSE 5%-WATER - 50 ML IVPB SCH (12:00)
[2020-06-16] MEDS ORDERED: PIPERACILLIN/TAZOBACTAM 3.375 GM VIAL IVPB ONE ×2 (12:56→18:29)
[2020-06-16] MEDS ORDERED: DEXTROSE 5%-WATER - 50 ML IVPB ONE ×2 (12:57→18:29)
[2020-06-16] MEDS ORDERED: PT OWN MED DRAWER 7, Y5N ONE ×5 (13:02→22:06)
[2020-06-16] MEDS ORDERED: PATIENT'S OWN MEDICATION (NON-FORMULARY) (Clonazepam [Clonazepam] 1 MG) PO SCH (14:00)
[2020-06-16] MEDS: clonazePAM 0.5 MG TABLET PO SCH ×2 (14:18→23:12)
[2020-06-16] MEDS: VANCOMYCIN 750 MG in DEXTROSE 5%-WATER - 250 ML IVPB SCH ×2 (14:35→23:11)
[2020-06-16] MEDS ORDERED: BENZTROPINE MESYLATE 1 MG TABLET PO SCH (22:00)
--- NOTE | 2020-06-16 22:54 | PN ---
Progress Note (short form) - Note Progress Note: ID CONSULT DICTATED
[2020-06-16] MEDS: lamoTRIgine 100 MG TABLET PO SCH (23:12)
[2020-06-16] MEDS: BENZTROPINE MESYLATE 2 MG TABLET PO SCH (23:12)
[2020-06-17] MEDS: PIPERACILLIN/TAZOB 3.375 GM 3.375 GM in DEXTROSE 5%-WATER - 50 ML IVPB SCH ×4 (01:59→23:46)
[2020-06-17] MEDS ORDERED: ACETAMINOPHEN 1000 MG/100 ML VIAL (NON FORMULARY) IVPB ONE (02:20)
[2020-06-17] MEDS ORDERED: DEXTROSE 5%-WATER - 50 ML IVPB ONE ×3 (02:31→17:20)
[2020-06-17] MEDS ORDERED: PIPERACILLIN/TAZOBACTAM 3.375 GM VIAL IVPB ONE (02:31)
[2020-06-17] MEDS: VANCOMYCIN 750 MG in DEXTROSE 5%-WATER - 250 ML IVPB SCH (05:37)
[2020-06-17] MEDS: clonazePAM 0.5 MG TABLET PO SCH ×3 (06:02→21:05)
[2020-06-17] MEDS ORDERED: VANCOMYCIN 1 GM PREMIX - 1 GM/200 ML BAG IVPB SCH (08:00)
[2020-06-17 09:07] LABS: BLOOD UREA NITROGEN 8.5 mg/dL (7-18); CALCIUM 8.8 mg/dL (8.5-10.1); CREATININE 0.5 mg/dL (0.55-1.3); POTASSIUM 3.4 mmol/L (3.5-5.1)
[2020-06-17] MEDS ORDERED: PIPERACILLIN/TAZOBACTAM 2.25 GM VIAL IVPB ONE ×2 (09:21→17:19)
[2020-06-17] MEDS ORDERED: PT OWN MED DRAWER 7, Y5N ONE ×3 (09:21→20:55)
[2020-06-17] MEDS: ENOXAPARIN NA (PORCINE) 40 MG/0.4 ML DISP.SYRIN SQ SCH (09:31)
[2020-06-17] MEDS: carBAMazepine 200 MG TABLET PO SCH ×2 (09:32→21:05)
[2020-06-17] MEDS: chlorproMAZINE HCL 100 MG TABLET PO SCH ×2 (09:33→21:05)
[2020-06-17] MEDS: PIPERACILLIN/TAZOB 2.25 GM 2.25 GM in DEXTROSE 5%-WATER - 50 ML IVPB SCH ×2 (09:34→17:37)
[2020-06-17] MEDS: VANCOMYCIN 1 GRAM (PRE-DOCKED) 1,000 MG/250 ML BAG IVPB SCH (09:34)
[2020-06-17] MEDS ORDERED: VANCOMYCIN 750 MG in DEXTROSE 5%-WATER - 150 ML IVPB SCH (10:00)
[2020-06-17] MEDS ORDERED: LORazepam 2 MG/ML SDV VIAL IM ONE (10:27)
--- NOTE | 2020-06-17 11:31 | PN ---
Progress Note, Physician History of Present Illness: NOT CONVERSANT AFEBRILE WBC DECREASED 14.7 BC PRELIM(-) WOUND C/S PRESUMED MRSA - Current Medication List Current Medications: Active Medications Benztropine Mesylate (Cogentin -) 2 mg PO [facility] Last Admin: 06/16/20 23:12 Dose: 2 mg Documented by: Carbamazepine (Tegretol -) 400 mg PO BID [facility] Last Admin: 06/17/20 09:32 Dose: 400 mg Documented by: Chlorpromazine HCl (Thorazine -) 200 mg PO DAILY [facility] Last Admin: 06/17/20 09:33 Dose: 200 mg Documented by: Chlorpromazine HCl (Thorazine -) 100 mg PO [facility] Last Admin: 06/16/20 23:12 Dose: 100 mg Documented by: Clonazepam (Klonopin -) 1 mg PO TID [facility] Last Admin: 06/17/20 06:02 Dose: 1 mg Documented by: Enoxaparin Sodium (Lovenox -) 40 mg SQ DAILY [facility] Last Admin: 06/17/20 09:31 Dose: 40 mg Documented by: Fluphenazine HCl (Prolixin) 2 mg PO DAILY [facility] Last Admin: 06/17/20 09:32 Dose: 2 mg Documented by: Piperacillin Sod/Tazobactam (Sod 2.25 gm/ Dextrose) 50 mls @ 100 mls/hr IVPB Q8H-IV [facility]; Protocol Last Admin: 06/17/20 09:34 Dose: 100 mls/hr Documented by: Vancomycin HCl (Vancomycin (Pre-Docked)) 1,000 mg in 250 mls @ 200 mls/hr IVPB Q24H [facility]; Protocol Last Admin: 06/17/20 09:34 Dose: 200 mls/hr Documented by: Lamotrigine (Lamictal -) 400 mg PO [facility] Last Admin: 06/16/20 23:12 Dose: 400 mg Documented by: - Objective Vital Signs: Vital Signs Temperature 97.4 F L 06/17/20 06:00 Pulse Rate 87 06/17/20 06:00 Respiratory Rate 20 06/17/20 06:00 Blood Pressure 87/46 L 06/17/20 06:00 O2 Sat by Pulse Oximetry (%) 98 06/16/20 22:00 Constitutional: Yes: No Distress Cardiovascular: Yes: Regular Rate and Rhythm, S1, S2 Respiratory: Yes: Diminished Gastrointestinal: Yes: Normal Bowel Sounds, Soft. No: Tenderness Extremities: Yes: Other (DECREASED R HAND AND FOREARM SWELLING / ERYTHEMA NO WOUND DRAINAGE) Labs: CBC, BMP 06/17/20 07:50 06/17/20 07:50 Assessment/Plan S/P I7D R FOREARM ABSCESS CELLULITIS R HAND/ FOREARM AWAIT C/S PRESUMED MRSA ? PO BACTRIM NEXT 24HR
--- NOTE | 2020-06-17 15:03 | EKG ---
Test Reason : Blood Pressure : / mmHG Vent. Rate : 071 BPM Atrial Rate : 071 BPM P-R Int : 130 ms QRS Dur : 086 ms QT Int : 414 ms P-R-T Axes : 066 051 056 degrees QTc Int : 449 ms NORMAL SINUS RHYTHM WITH SINUS ARRHYTHMIA NORMAL ECG WHEN COMPARED WITH ECG OF 15-JUN-2020 22:21, ST NO LONGER DEPRESSED IN ANTERIOR LEADS Confirmed by MD Darion, ([id number]) on 06/17/2020 3:02:56 PM Referred By: Kayla SHELTON Confirmed By:Daniel Orlando MD
--- NOTE | 2020-06-17 18:27 | PN ---
Progress Note (short form) - Note Progress Note: S: Continued vocal verboseness. No fevers. IV access difficult with behavioural challenges Vital Signs Temperature 98.8 F 06/17/20 17:32 Pulse Rate 86 06/17/20 17:32 Respiratory Rate 20 06/17/20 17:32 Blood Pressure 104/70 06/17/20 17:32 O2 Sat by Pulse Oximetry (%) 98 06/17/20 10:00 PE: GEN: NAD, awake, alert, limited due to clinical history LUNG: CTA without wheezes or rales despite poor inspiratory effort CARD: RRR no murmurs EXT: L arm erythema continued down to hand. bandaged over abscess without any overt drainage. CBC, BMP 06/16/20 06:09 06/16/20 06:09 Hepatic Panel Total Bilirubin 0.4 mg/dL (0.2-1) 06/16/20 06:09 AST 7 U/L (15-37) L 06/16/20 06:09 ALT 22 U/L (13-61) 06/16/20 06:09 Alkaline Phosphatase 87 U/L (45-117) 06/16/20 06:09 Albumin 3.0 g/dl (3.4-5.0) L 06/16/20 06:09 Microbiology 06/15/20 18:30 Abscess Gram Stain - Final Active Medications Benztropine Mesylate (Cogentin -) 2 mg PO HS [facility] Carbamazepine (Tegretol -) 400 mg PO BID [facility] Last Admin: 06/16/20 09:49 Dose: 400 mg Documented by: Chlorpromazine HCl (Thorazine -) 200 mg PO DAILY [facility] Last Admin: 06/16/20 09:49 Dose: 200 mg Documented by: Chlorpromazine HCl (Thorazine -) 100 mg PO HS [facility] Clonazepam (Klonopin -) 1 mg PO TID [facility] Last Admin: 06/16/20 14:18 Dose: 1 mg Documented by: Enoxaparin Sodium (Lovenox -) 40 mg SQ DAILY [facility] Last Admin: 06/16/20 09:49 Dose: 40 mg Documented by: Fluphenazine HCl (Prolixin) 2 mg PO DAILY [facility] Last Admin: 06/16/20 09:49 Dose: 2 mg Documented by: Piperacillin Sod/Tazobactam (Sod 3.375 gm/ Dextrose) 50 mls @ 100 mls/hr IVPB Q8H-IV [facility]; Protocol Vancomycin HCl 750 mg/ (Dextrose) 150 mls @ 150 mls/hr IVPB Q24H [facility]; Protocol Piperacillin Sod/Tazobactam (Sod 3.375 gm/ Dextrose) 50 mls @ 100 mls/hr IVPB Q8H-IV [facility]; Protocol Stop: 06/17/20 02:29 Last Admin: 06/16/20 11:39 Dose: 100 mls/hr Documented by: Vancomycin HCl 750 mg/ (Dextrose) 250 mls @ 250 mls/hr IVPB Q8H-IV [facility] Stop: 06/17/20 02:59 Last Admin: 06/16/20 14:35 Dose: 250 mls/hr Documented by: Lamotrigine (Lamictal -) 400 mg PO HS [facility] Assessment and Plan: L Forearm Abscess History of Epilepsy History of developmental disability History of Blindness History of Self-injury --Patient with cellulitis and associated abscess --Presumptive MRSA on culture; f/u final cultures --Continue Vancomycin if IV access established; otherwise discuss with ID regarding PO ABX --Given combativeness towards care/IV access may use Ativan 1mg IM to calm pa tient; cannot use QTc prolonging medications as her home medications are on board and at baseline is 480ms --Continue antiepileptic home doses --Continue behavioural modification medications due to her risk of self-injury and behavioural problems related to developmental delay --May use 1:1 if needed Dispo: Monitor M/S Glynn Ibrahim, - IM
[2020-06-17] MEDS: BENZTROPINE MESYLATE 2 MG TABLET PO SCH (21:05)
[2020-06-17] MEDS: lamoTRIgine 100 MG TABLET PO SCH (22:01)
[2020-06-18] MEDS ORDERED: PIPERACILLIN/TAZOBACTAM 2.25 GM VIAL IVPB ONE ×3 (01:10→16:58)
[2020-06-18] MEDS ORDERED: DEXTROSE 5%-WATER - 50 ML IVPB ONE ×3 (01:10→16:58)
[2020-06-18] MEDS: PIPERACILLIN/TAZOB 2.25 GM 2.25 GM in DEXTROSE 5%-WATER - 50 ML IVPB SCH ×3 (01:31→17:35)
[2020-06-18] MEDS: clonazePAM 0.5 MG TABLET PO SCH ×3 (05:50→21:28)
[2020-06-18] MEDS ORDERED: KCL 10 MEQ IVPB 10 MEQ/100 ML INFUS.BAG IVPB SCH (08:15)
--- NOTE | 2020-06-18 08:17 | CONS ---
INFECTIOUS DISEASE CONSULTATION DATE OF CONSULTATION: DATE OF DICTATION: 06/17/2020 HISTORY: The patient is a 44-year-old female evaluated for cellulitis of the left upper extremity. History was obtained from the chart as she could not give a history. She is a resident of [facility]. She was noted to have erythema, warmth and swelling of the left hand as well as the left forearm. She was taken to the emergency room where she was noted to have a white count of 19.3. Sonogram showed a soft tissue fluid collection in the left forearm. Incision and drainage was performed in the emergency room. She was empirically treated with vancomycin and Zosyn. She is unable to give any additional history. PAST MEDICAL HISTORY: Positive for seizure disorder and mental retardation. ALLERGIES: No known allergies. LABORATORY DATA: White count 19.3, creatinine 0.4. Urine analysis 26 white cells. COVID-19 negative. Cultures pending. PHYSICAL EXAMINATION: General: Patient is awake but not conversant. Vital Signs: Temperature 98.4, blood pressure 118/70, pulse 72 regular, respirations 18 per minute. Heart: Sounds S1, S2. Lungs: Clear. Abdomen: Soft. Extremities: Examination of the left upper extremity there is swelling of the dorsum of the left hand with patchy erythema. The erythema extends to the forearm. There is an incisional wound present on the mid aspect of the left forearm. No purulent drainage is expressible. IMPRESSION: 1. Status post incision and drainage left forearm soft tissue abscess. 2. Cellulitis of the left forearm and left hand. 3. History of mental retardation. Await cultures. Continue empiric vancomycin and Zosyn pending culture results. Thank you for the kind referral. JAYLAN RESENDIZ M.D. [id number]
[2020-06-18] MEDS ORDERED: PT OWN MED DRAWER 7, Y5N ONE ×3 (08:56→21:24)
[2020-06-18 09:21] LABS: HEMATOCRIT 34.7 % (32.4-45.2); HEMOGLOBIN 11.8 GM/dL (10.7-15.3); MCH 30.4 pg (25.7-33.7); MEAN CELL VOLUME 89.4 fl (80-96); MEAN PLT VOLUME 9.9 fl (7.5-11.1); PLATELET COUNT 230 K/MM3 (134-434); RBC 3.88 M/mm3 (3.60-5.2); RDW 12.4 % (11.6-15.6); WHITE BLOOD COUNT 5.3 K/mm3 (4.0-10.0)
[2020-06-18 09:23] LABS: BLOOD UREA NITROGEN 6.6 mg/dL (7-18); CALCIUM 8.2 mg/dL (8.5-10.1); CREATININE 0.4 mg/dL (0.55-1.3); MAGNESIUM 2.2 mg/dL (1.8-2.4); POTASSIUM 3.9 mmol/L (3.5-5.1)
[2020-06-18] MEDS: ENOXAPARIN NA (PORCINE) 40 MG/0.4 ML DISP.SYRIN SQ SCH (09:40)
[2020-06-18] MEDS: carBAMazepine 200 MG TABLET PO SCH ×2 (09:41→21:28)
[2020-06-18] MEDS: chlorproMAZINE HCL 100 MG TABLET PO SCH ×2 (09:42→21:29)
[2020-06-18] MEDS: VANCOMYCIN 1 GRAM (PRE-DOCKED) 1,000 MG/250 ML BAG IVPB SCH (09:42)
[2020-06-18 12:04] VITALS: BMI 17.9
--- NOTE | 2020-06-18 14:00 | PN ---
Teaching Attending Note Name of Resident: Asim Mojica ATTENDING PHYSICIAN STATEMENT I saw and evaluated the patient. I reviewed the resident's note and discussed the case with the resident. I agree with the resident's findings and plan as documented. SUBJECTIVE: Seen and examined at bedside. Responds to touch but not to voice cultures show sensitivity to clindamycin, Bactrim, and vancomycin OBJECTIVE Last Vital Signs Temp Pulse Resp BP Pulse Ox 97.7 F 68 18 100/56 L 99 06/18/20 09:00 06/18/20 09:00 06/18/20 09:00 06/18/20 09:00 06/18/20 09:00 PE: Per resident note Labs/Imaging: reviewed ASSESSMENT/PLAN 44-year-old male past medical history of developmental delay, epilepsy, dystonia, blindness, patient at [facility] presents with left hand abscess, cultures found to be MRSA positive #Left hand abscess: MRSA positive Currently on vancomycin: We will discuss switch to p.o. clindamycin or Bactrim with ID #Seizures Continue home medications Seizure precautions Aspiration precautions #Developmental delay/dystonia Continue home medications #DVT PPX: Lovenox
--- NOTE | 2020-06-18 20:10 | PN ---
Physical Exam: SUBJECTIVE: Patient seen and examined at bedside. No acute events overnight. OBJECTIVE: Vital Signs Period Temp Pulse Resp BP Sys/Amaral Pulse Ox Last 24 Hr 97.5 F-98.6 F 64-76 18-20 93-125/53-73 96-99 GENERAL: Sluggish to respond. Unable to assess orientation due to MR LUNGS: Poor inspiratory effort. HEART: RRR S1S2 ABDOMEN: Soft, No facial grimacing to deep palpation, BS+. EXTREMITIES: Left forearm open wound -purulent, non-odorous. Laboratory Results - last 24 hr 06/18/20 06/18/20 07:50 07:50 WBC 5.3 RBC 3.88 Hgb 11.8 Hct 34.7 MCV 89.4 MCH 30.4 MCHC 34.0 RDW 12.4 Plt Count 230 MPV 9.9 Sodium 144 Potassium 3.9 Chloride 111 H Carbon Dioxide 27 Anion Gap 6 L BUN 6.6 L Creatinine 0.4 L Est GFR (CKD-EPI)AfAm 145.79 Est GFR (CKD-EPI)NonAf 125.79 Random Glucose 75 Calcium 8.2 L Magnesium 2.2 Active Medications Generic Name Dose Route Start Last Admin Trade Name Freq PRN Reason Stop Dose Admin Benztropine Mesylate 2 mg 06/16/20 22:15 06/17/20 21:05 Cogentin - PO 2 mg HS [facility] Administration Carbamazepine 400 mg 06/16/20 10:00 06/18/20 09:41 Tegretol - PO 400 mg BID [facility] Administration Chlorpromazine HCl 200 mg 06/16/20 10:00 06/18/20 09:42 Thorazine - PO 200 mg DAILY [facility] Administration Chlorpromazine HCl 100 mg 06/16/20 22:00 06/17/20 21:05 Thorazine - PO 100 mg HS [facility] Administration Clonazepam 1 mg 06/16/20 14:00 06/18/20 13:59 Klonopin - PO 1 mg TID [facility] Administration Enoxaparin Sodium 40 mg 06/16/20 10:00 06/18/20 09:40 Lovenox - SQ 40 mg DAILY [facility] Administration Fluphenazine HCl 2 mg 06/16/20 10:00 06/18/20 09:41 Prolixin PO 2 mg DAILY [facility] Administration Piperacillin Sod/Tazobactam 50 mls @ 100 mls/hr 06/17/20 10:00 06/18/20 17:35 Sod 2.25 gm/ Dextrose IVPB 100 mls/hr Q8H-IV [facility] Administration Protocol Vancomycin HCl 1,000 mg in 250 mls @ 200 mls/hr 06/17/20 10:00 06/18/20 09:42 Vancomycin (Pre-Docked) IVPB 200 mls/hr Q24H [facility] Administration Protocol Lamotrigine 400 mg 06/16/20 22:15 06/17/20 22:01 Lamictal - PO 400 mg HS [facility] Administration ASSESSMENT/PLAN: 44-year-old male past medical history of developmental delay, epilepsy, dystonia, blindness, patient at [place] presents with left hand abscess, cultures found to be MRSA positive #L Forearm Abscess -Patient with cellulites and associated abscess -MRSA on culture. Sensitive to Bactrim. Likely switch to PO Bactrim tomorrow. -C/W Vancomycin. Zosyn discontinued. -BCX negative. #History of Epilepsy c/w Lamictal, Tegretol #FEN No Fluids Monitor Electrolytes Chopped Diet DVT ppx: Jasmin SQ #Dispo: Likely D/C tomorrow with switch to PO ABx Visit type - Emergency Visit Emergency Visit: Yes ED Registration Date: 06/15/20 Care time: The patient presented to the Emergency Department on the above date and was hospitalized for further evaluation of their emergent condition. - New Patient This patient is new to me today: No - Critical Care Critical Care patient: No - Discharge Referral Referred to [facility] No ATTENDING PHYSICIAN STATEMENT I saw and evaluated the patient. I reviewed the resident's note and discussed the case with the resident. I agree with the resident's findings and plan as documented. SUBJECTIVE: OBJECTIVE: ASSESSMENT AND PLAN:
[2020-06-18] MEDS: lamoTRIgine 100 MG TABLET PO SCH (21:28)
[2020-06-18] MEDS: BENZTROPINE MESYLATE 2 MG TABLET PO SCH (21:29)
--- NOTE | 2020-06-18 22:14 | PN ---
Progress Note, Physician History of Present Illness: NOT CONVERSANT AGITATED WHEN EXAMINED AFEBRILE WBC DECREASED WNL BC(-) WOUND C/S MRSA - Current Medication List Current Medications: Active Medications Benztropine Mesylate (Cogentin -) 2 mg PO [facility] Last Admin: 06/18/20 21:29 Dose: 2 mg Documented by: Carbamazepine (Tegretol -) 400 mg PO BID [facility] Last Admin: 06/18/20 21:28 Dose: 400 mg Documented by: Chlorpromazine HCl (Thorazine -) 200 mg PO DAILY [facility] Last Admin: 06/18/20 09:42 Dose: 200 mg Documented by: Chlorpromazine HCl (Thorazine -) 100 mg PO [facility] Last Admin: 06/18/20 21:29 Dose: 100 mg Documented by: Clonazepam (Klonopin -) 1 mg PO TID [facility] Last Admin: 06/18/20 21:28 Dose: 1 mg Documented by: Enoxaparin Sodium (Lovenox -) 40 mg SQ DAILY [facility] Last Admin: 06/18/20 09:40 Dose: 40 mg Documented by: Fluphenazine HCl (Prolixin) 2 mg PO DAILY [facility] Last Admin: 06/18/20 09:41 Dose: 2 mg Documented by: Vancomycin HCl (Vancomycin (Pre-Docked)) 1,000 mg in 250 mls @ 200 mls/hr IVPB Q24H [facility]; Protocol Last Admin: 06/18/20 09:42 Dose: 200 mls/hr Documented by: Lamotrigine (Lamictal -) 400 mg PO [facility] Last Admin: 06/18/20 21:28 Dose: 400 mg Documented by: - Objective Vital Signs: Vital Signs Temperature 98.0 F 06/18/20 17:13 Pulse Rate 66 06/18/20 17:13 Respiratory Rate 18 06/18/20 17:13 Blood Pressure 110/64 06/18/20 17:13 O2 Sat by Pulse Oximetry (%) 98 06/18/20 13:00 Constitutional: Yes: No Distress Eyes: Yes: Conjunctiva Clear Cardiovascular: Yes: Regular Rate and Rhythm, S1, S2 Respiratory: Yes: CTA Bilaterally Gastrointestinal: Yes: Normal Bowel Sounds, Soft Extremities: Yes: Other (L HAND ERYTHEMA NEARLY ALL RESOLVED L FOREARM WOUND NO DRAINAGE) Labs: CBC, BMP 06/18/20 07:50 06/18/20 07:50 Assessment/Plan S/P I&D L FOREARM ABSCESS CELLULITIS L HAND/ FOREARM IMPROVED PO BACTRIM AM
[2020-06-19] MEDS: clonazePAM 0.5 MG TABLET PO SCH ×2 (06:03→13:20)
[2020-06-19 08:35] LABS: BLOOD UREA NITROGEN 17.7 mg/dL (7-18); CALCIUM 8.8 mg/dL (8.5-10.1); CREATININE 0.9 mg/dL (0.55-1.3); MAGNESIUM 2.2 mg/dL (1.8-2.4)
[2020-06-19 08:42] LABS: HEMOGLOBIN 13.6 GM/dL (10.7-15.3); MCH 29.1 pg (25.7-33.7); MCHC 33.2 g/dl (32.0-36.0); MEAN CELL VOLUME 87.9 fl (80-96); MEAN PLT VOLUME 11.4 fl (7.5-11.1); PLATELET COUNT 174 K/MM3 (134-434); RBC 4.67 M/mm3 (3.60-5.2); RDW 12.5 % (11.6-15.6); WHITE BLOOD COUNT 8.6 K/mm3 (4.0-10.0)
[2020-06-19] MEDS ORDERED: PT OWN MED DRAWER 7, Y5N ONE (09:39)
[2020-06-19] MEDS: carBAMazepine 200 MG TABLET PO SCH (09:45)
[2020-06-19] MEDS: ENOXAPARIN NA (PORCINE) 40 MG/0.4 ML DISP.SYRIN SQ SCH (09:46)
[2020-06-19] MEDS: chlorproMAZINE HCL 100 MG TABLET PO SCH (09:46)
[2020-06-19] MEDS ORDERED: SULFAMETHOXAZOLE/TRIMETHOPRIM 800MG/160MG D.S. TABLET PO SCH (10:00)
--- NOTE | 2020-06-19 11:41 | EKG ---
Test Reason : Blood Pressure : / mmHG Vent. Rate : 095 BPM Atrial Rate : 095 BPM P-R Int : 130 ms QRS Dur : 072 ms QT Int : 352 ms P-R-T Axes : 055 020 043 degrees QTc Int : 442 ms POOR DATA QUALITY, INTERPRETATION MAY BE ADVERSELY AFFECTED NORMAL SINUS RHYTHM POSSIBLE LEFT ATRIAL ENLARGEMENT BORDERLINE ECG WHEN COMPARED WITH ECG OF 19-MAR-2017 11:13, NO SIGNIFICANT CHANGE WAS FOUND Confirmed by Daljit Palomares ([id number]) on 06/19/2020 11:41:24 AM Referred By: Confirmed By:Daljit Palomares
--- NOTE | 2020-06-19 13:29 | PN ---
Teaching Attending Note Name of Resident: Asim Mojica ATTENDING PHYSICIAN STATEMENT I saw and evaluated the patient. I reviewed the resident's note and discussed the case with the resident. I agree with the resident's findings and plan as documented. SUBJECTIVE: Seen and examined at bedside. Patient mental baseline. Hemodynamically stable. Switch to p.o. Bactrim. Medically cleared for discharge back to [place] to complete 5 days of Bactrim for total of 7 days of antibiotics. Patient may otherwise take her home medications OBJECTIVE Last Vital Signs Temp Pulse Resp BP Pulse Ox 97.8 F 78 20 128/72 99 06/19/20 09:00 06/19/20 09:00 06/19/20 09:00 06/19/20 09:00 06/18/20 21:00 PE: Per resident note Labs/Imaging: reviewed ASSESSMENT/PLAN 44-year-old male past medical history of developmental delay, epilepsy, dystonia, blindness, patient at [place] presents with left hand abscess, cultures found to be MRSA positive. Patient underwent incision and drainage of abscess and treatment with vancomycin for 2 days. Wound cultures came back positive for MRSA sensitive to Bactrim. Patient be discharged back to [place] on p.o. Bactrim for a total of 7-day antibiotic course
[2020-06-19 15:19] VITALS: BP 112/58; PULSE 86; TEMP 97.5
[2020-06-20] MEDS ORDERED: ASCORBIC ACID 250 MG TABLET (FP) PO SCH (10:00)
[2020-06-20] MEDS ORDERED: MULTIVITAMINS (DAILY MVI) TABLET (FP) PO SCH (10:00)
== END 2020-06-19 15:51 | disposition home or self-care (01) | DRG 383 ==
LOC: JER 15:30 → JERBED 20:20 → J8W 06-16 12:24
PROVIDERS: ATTEND Internal Medicine
PROC: 0X9K0ZX Drainage of Left Hand, Open Approach, Diagnostic (ICD-10-PCS; principal; 2020-06-15)
DX: L02.414 Cutaneous abscess of left upper limb (principal); G24.9 Dystonia, unspecified; H54.8 Legal blindness, as defined in USA; L03.114 Cellulitis of left upper limb; Z68.1 Body mass index [BMI] 19.9 or less, adult; F72 Severe intellectual disabilities; G40.909 Epilepsy, unspecified, not intractable, without status epilepticus; E88.09 Other disorders of plasma-protein metabolism, not elsewhere classified; E46 Unspecified protein-calorie malnutrition; D72.829 Elevated white blood cell count, unspecified
CPT/HCPCS: 36415; 76882-TC-LT; 80048; 80053; 81003; 83735; 84100; 85025; 85027; 87040; 87070; 87186; 87205; 93005; 93010; 99285-25; G0480; J0131; U0003

== ENCOUNTER 2021-03-19 06:41 | Emergency (ER) | payer OTHER ==
[2021-03-19 07:02] VITALS: BP 100/57; PULSE 71; TEMP 97.2; BMI 20.6
[2021-03-19] MEDS ORDERED: DIPHTH,PERTUSS(ACELL),TET 0.5 ML DISP.SYRIN IM ONE ×2 (08:58→09:04)
== END 2021-03-19 09:40 | disposition home or self-care (01) ==
LOC: JER 06:41
PROC: 0HQ1XZZ Repair Face Skin, External Approach (ICD-10-PCS; principal; 2021-03-19)
PROC: 3E0234Z Introduction of Serum, Toxoid and Vaccine into Muscle, Percutaneous Approach (ICD-10-PCS; 2021-03-19)
DX: S01.81XA Laceration without foreign body of other part of head, initial encounter (principal)
CPT/HCPCS: 90471; 90715; 99284-25

== ENCOUNTER 2021-03-24 12:21 | Emergency (ER) | payer OTHER ==
[2021-03-24 12:29] VITALS: BP 130/77; PULSE 67; TEMP 97.5; BMI 20.8
== END 2021-03-24 13:16 | disposition home or self-care (01) ==
LOC: JER 12:21 → JERFT 12:21
DX: Z48.02 Encounter for removal of sutures (principal)
CPT/HCPCS: 99281-25

== ENCOUNTER 2022-05-11 19:52 | Emergency (ER) | payer OTHER ==
[2022-05-11 20:07] VITALS: BP 148/86; PULSE 96; RESP 22; TEMP 98.8; BMI 23.3
== END 2022-05-11 23:38 ==
LOC: JER 19:52
DX: M79.89 Other specified soft tissue disorders (principal)
CPT/HCPCS: 73630-TC-LT; 93971-TC; 99284-25

== ENCOUNTER 2022-08-02 17:45 | Emergency (ER) | payer OTHER ==
[2022-08-02 18:14] VITALS: BP 119/90; PULSE 76; RESP 18; TEMP 98.7; BMI 22.7
[2022-08-02] MEDS ORDERED: HALOPERIDOL LACTATE 5 MG/ML IM ONE ×2 (18:14→18:27)
[2022-08-02] MEDS ORDERED: LORazepam 2 MG/ML SDV VIAL IM ONE ×2 (18:15→19:26)
[2022-08-02] MEDS ORDERED: DIPHTH,PERTUSS(ACELL),TET 0.5 ML DISP.SYRIN IM ONE ×2 (18:16→18:28)
[2022-08-02] MEDS ORDERED: LIDOCAINE HCL 1%, 10 MG/ML (20ML VIAL) ONE (18:27)
== END 2022-08-02 22:54 ==
LOC: JER 17:45
PROC: 0CQ0XZZ Repair Upper Lip, External Approach (ICD-10-PCS; principal; 2022-08-02)
PROC: 3E0234Z Introduction of Serum, Toxoid and Vaccine into Muscle, Percutaneous Approach (ICD-10-PCS; 2022-08-02)
PROC: 3E023GC Introduction of Other Therapeutic Substance into Muscle, Percutaneous Approach (ICD-10-PCS; 2022-08-02)
DX: S01.511A Laceration without foreign body of lip, initial encounter (principal); W07.XXXA Fall from chair, initial encounter
CPT/HCPCS: 12011-25; 70450-TC; 90471; 90715; 96372; 99284-25

== ENCOUNTER 2023-09-21 18:55 | Inpatient (IN) | payer OTHER ==
[2023-09-21 23:01] LABS: BASO % 0.3 % (0-2.0); EOS % 1.9 % (0-4.5); HEMATOCRIT 42.5 % (32.4-45.2); HEMOGLOBIN 13.7 GM/dL (10.7-15.3); LYMPH % 10.1 % (8-40); MCH 28.9 pg (25.7-33.7); MCHC 32.3 g/dl (32.0-36.0); MEAN CELL VOLUME 89.5 fl (80-96); MEAN PLT VOLUME 9.6 fl (7.5-11.1); NEUT % 76.7 % (42.8-82.8); PLATELET COUNT 248 10^3/uL (134-434); RBC 4.75 M/mm3 (3.60-5.2); RDW 13.2 % (11.6-15.6); WHITE BLOOD COUNT 15.3 K/mm3 (4.0-10.0)
[2023-09-21 23:36] LABS: POTASSIUM 4.5 mmol/L (3.5-5.1)
[2023-09-22] MEDS ORDERED: PIPERACILLIN/TAZOB 3.375 GM 3.375 GM in DEXTROSE 5%-WATER - 50 ML IVPB ONE (00:24)
[2023-09-22 00:55] LABS: CALCIUM 8.9 mg/dL (8.5-10.1)
[2023-09-22 00:56] LABS: ALBUMIN 3.6 g/dl (3.4-5.0)
[2023-09-22 01:01] LABS: BILIRUBIN,TOTAL 0.4 mg/dL (0.2-1); TOT PROT 7.3 g/dl (6.4-8.2)
[2023-09-22] MEDS ORDERED: PIPERACILLIN/TAZOB 3.375 GM 3.375 GM/50 ML BAG IVPB ONE ×3 (01:12→17:49)
[2023-09-22] MEDS ORDERED: VANCOMYCIN 1 GRAM (PRE-DOCKED) 1,000 MG/250 ML BAG IVPB ONE ×2 (03:52→15:21)
[2023-09-22] MEDS: VANCOMYCIN 1 GRAM (PRE-DOCKED) 1,000 MG/250 ML BAG IVPB SCH ×2 (04:13→15:31)
[2023-09-22] MEDS ORDERED: PATIENT'S OWN MEDICATION (NON-FORMULARY) (Clonazepam [Clonazepam] 1 MG Tablet) PO SCH (06:00)
[2023-09-22 08:12] LABS: BASO % 0.3 % (0-2.0); EOS % 2.5 % (0-4.5); HEMATOCRIT 40.8 % (32.4-45.2); HEMOGLOBIN 13.3 GM/dL (10.7-15.3); LYMPH % 9.4 % (8-40); MCH 29.2 pg (25.7-33.7); MCHC 32.7 g/dl (32.0-36.0); MEAN CELL VOLUME 89.4 fl (80-96); MEAN PLT VOLUME 9.7 fl (7.5-11.1); MONO % 12.4 % (3.8-10.2); NEUT % 75.4 % (42.8-82.8); PLATELET COUNT 206 10^3/uL (134-434); RBC 4.56 M/mm3 (3.60-5.2); RDW 13.2 % (11.6-15.6); WHITE BLOOD COUNT 13.2 K/mm3 (4.0-10.0)
[2023-09-22 08:48] LABS: CALCIUM 8.8 mg/dL (8.5-10.1)
[2023-09-22 08:49] LABS: ALBUMIN 3.6 g/dl (3.4-5.0); BLOOD UREA NITROGEN 9.5 mg/dL (7-18); MAGNESIUM 1.9 mg/dL (1.8-2.4)
[2023-09-22 08:51] LABS: URIC ACID 3.2 mg/dL (2.6-7.2)
[2023-09-22 08:52] LABS: CREATININE 0.6 mg/dL (0.55-1.3); PHOSPHOROUS 2.9 mg/dL (2.5-4.9)
[2023-09-22 08:53] LABS: BILIRUBIN,TOTAL 0.5 mg/dL (0.2-1); TOT PROT 7.3 g/dl (6.4-8.2)
[2023-09-22] MEDS ORDERED: carBAMazepine 200 MG TABLET ONE ×3 (09:21→22:08)
[2023-09-22] MEDS ORDERED: lamoTRIgine 100 MG TABLET ONE (09:21)
[2023-09-22] MEDS ORDERED: POLYETHYLENE GLYCOL (HEALTHYLAX) 3350 17 GM PACKET ONE ×2 (09:21→22:08)
[2023-09-22] MEDS ORDERED: SENNOSIDES 8.6MG TABLET (FP) PO ONE (09:21)
[2023-09-22] MEDS ORDERED: ENOXAPARIN NA (PORCINE) 40 MG/0.4 ML DISP.SYRIN SQ ONE (09:22)
[2023-09-22] MEDS ORDERED: MULTIVITAMINS (DAILY MVI) TABLET (FP) ONE (09:22)
[2023-09-22] MEDS: lamoTRIgine 100 MG TABLET PO SCH ×2 (09:26→22:28)
[2023-09-22] MEDS: SENNOSIDES 8.6MG TABLET (FP) PO SCH (09:26)
[2023-09-22] MEDS: MULTIVITAMINS (DAILY MVI) TABLET (FP) PO SCH (09:27)
[2023-09-22] MEDS: carBAMazepine 200 MG TABLET PO SCH ×2 (09:27→22:28)
[2023-09-22] MEDS: POLYETHYLENE GLYCOL (HEALTHYLAX) 3350 17 GM PACKET PO SCH ×2 (09:28→22:27)
[2023-09-22] MEDS: ENOXAPARIN NA (PORCINE) 40 MG/0.4 ML DISP.SYRIN SQ SCH (09:28)
[2023-09-22] MEDS: PIPERACILLIN/TAZOB 3.375 GM 3.375 GM in DEXTROSE 5%-WATER - 50 ML IVPB SCH ×2 (12:08→18:33)
[2023-09-22] MEDS: chlorproMAZINE HCL 100 MG TABLET PO SCH (12:31)
[2023-09-22] MEDS: AMMONIUM LACTATE 12% LOTION 225 GM BOTTLE TP SCH ×2 (15:08→22:27)
[2023-09-22] MEDS: CLOTRIMAZOLE 1% CREAM TP SCH (15:09)
[2023-09-22] MEDS ORDERED: clonazePAM 0.5 MG TABLET ONE ×2 (15:10→22:08)
[2023-09-22] MEDS: clonazePAM 0.5 MG TABLET PO SCH ×2 (15:11→22:27)
[2023-09-22] MEDS ORDERED: CEFTRIAXONE 2 GM/100 ML BAG IVPB ONE (22:09)
[2023-09-22] MEDS ORDERED: DOCUSATE SODIUM 100 MG CAPSULE (FP) PO ONE ×2 (22:09→22:15)
[2023-09-22] MEDS: CEFTRIAXONE 2 GM in DEXTROSE 5%-WATER 100 ML IVPB SCH (22:27)
[2023-09-22] MEDS: DOCUSATE SODIUM 100 MG CAPSULE (FP) PO SCH (22:27)
[2023-09-23] MEDS: chlorproMAZINE HCL 100 MG TABLET PO SCH ×3 (01:29→23:49)
[2023-09-23] MEDS ORDERED: VANCOMYCIN 1 GRAM (PRE-DOCKED) 1,000 MG/250 ML BAG IVPB ONE ×2 (03:21→15:02)
[2023-09-23] MEDS: VANCOMYCIN/WATER FOR INJ (PEG) 1,000 MG/200 ML BAG IVPB SCH ×2 (03:45→15:47)
[2023-09-23] MEDS ORDERED: clonazePAM 0.5 MG TABLET ONE ×3 (06:09→23:25)
[2023-09-23] MEDS: clonazePAM 0.5 MG TABLET PO SCH ×3 (06:14→23:48)
[2023-09-23] MEDS ORDERED: POLYETHYLENE GLYCOL (HEALTHYLAX) 3350 17 GM PACKET ONE ×2 (07:43→23:25)
[2023-09-23] MEDS ORDERED: lamoTRIgine 100 MG TABLET ONE ×2 (07:44→23:26)
[2023-09-23] MEDS ORDERED: SENNOSIDES 8.6MG TABLET (FP) PO ONE (07:46)
[2023-09-23] MEDS ORDERED: carBAMazepine 200 MG TABLET ONE ×2 (07:46→23:26)
[2023-09-23] MEDS ORDERED: chlorproMAZINE HCL 25 MG/1 ML AMP ONE (07:46)
[2023-09-23] MEDS ORDERED: CEFTRIAXONE 2 GM/100 ML BAG IVPB ONE (07:47)
[2023-09-23] MEDS ORDERED: MULTIVITAMINS (DAILY MVI) TABLET (FP) ONE (07:47)
[2023-09-23] MEDS ORDERED: ENOXAPARIN NA (PORCINE) 40 MG/0.4 ML DISP.SYRIN SQ ONE (07:48)
[2023-09-23] MEDS ORDERED: SODIUM CHLORIDE 1,000 ML IV SCH (08:00)
[2023-09-23] MEDS: PIPERACILLIN/TAZOB 3.375 GM 3.375 GM in DEXTROSE 5%-WATER - 50 ML IVPB SCH (08:03)
[2023-09-23] MEDS: VANCOMYCIN 1,000 MG in DEXTROSE 5%-WATER - 250 ML IVPB SCH ×2 (08:03→08:04)
[2023-09-23] MEDS: carBAMazepine 200 MG TABLET PO SCH ×2 (08:14→23:48)
[2023-09-23] MEDS: lamoTRIgine 100 MG TABLET PO SCH ×2 (08:14→23:48)
[2023-09-23] MEDS: SENNOSIDES 8.6MG TABLET (FP) PO SCH (08:14)
[2023-09-23] MEDS: MULTIVITAMINS (DAILY MVI) TABLET (FP) PO SCH (08:14)
[2023-09-23] MEDS: ENOXAPARIN NA (PORCINE) 40 MG/0.4 ML DISP.SYRIN SQ SCH (08:16)
[2023-09-23] MEDS: CEFTRIAXONE 2 GM in DEXTROSE 5%-WATER 100 ML IVPB SCH (08:16)
[2023-09-23] MEDS: CLOTRIMAZOLE 1% CREAM TP SCH (08:57)
[2023-09-23] MEDS: AMMONIUM LACTATE 12% LOTION 225 GM BOTTLE TP SCH ×2 (08:58→23:48)
[2023-09-23] MEDS: POLYETHYLENE GLYCOL (HEALTHYLAX) 3350 17 GM PACKET PO SCH ×2 (12:52→23:48)
[2023-09-23] MEDS ORDERED: VANCOMYCIN 1,000 MG in DEXTROSE 5%-WATER - 250 ML IVPB SCH (15:21)
[2023-09-23] MEDS: VANCOMYCIN 1 GRAM (PRE-DOCKED) 1,000 MG/250 ML BAG IVPB SCH (15:47)
[2023-09-23 19:04] LABS: EPI CELLS 5 /uL (0-25.1); HYALINE CASTS 0 /uL (0-3.1); PH,URINE 6.5 (5.0-8.0); URINE APPEARANCE CLEAR; URINE BACTERIA 2 /uL (0-1359); URINE BILIRUBIN NEGATIVE (NEGATIVE); URINE COLOR YELLOW; URINE GLUCOSE (UA) NEGATIVE (NEGATIVE); URINE KETONE NEGATIVE (NEGATIVE); URINE LEUK ESTERASE NEGATIVE (NEGATIVE); URINE NITRITE NEGATIVE (NEGATIVE); URINE PROTEIN NEGATIVE (NEGATIVE); URINE RBC 109 /uL (0-23.9); URINE WBC 9 /uL (0-25.8)
[2023-09-23] MEDS ORDERED: DOCUSATE SODIUM 100 MG CAPSULE (FP) PO ONE (23:27)
[2023-09-23] MEDS: DOCUSATE SODIUM 100 MG CAPSULE (FP) PO SCH (23:48)
[2023-09-24] MEDS ORDERED: VANCOMYCIN 1 GRAM (PRE-DOCKED) 1,000 MG/250 ML BAG IVPB ONE (02:45)
[2023-09-24] MEDS: VANCOMYCIN 1 GRAM (PRE-DOCKED) 1,000 MG/250 ML BAG IVPB SCH ×2 (03:11→17:21)
[2023-09-24] MEDS ORDERED: clonazePAM 0.5 MG TABLET ONE (05:19)
[2023-09-24] MEDS: clonazePAM 0.5 MG TABLET PO SCH ×3 (05:25→21:15)
[2023-09-24] MEDS: AMMONIUM LACTATE 12% LOTION 225 GM BOTTLE TP SCH ×2 (09:04→21:51)
[2023-09-24] MEDS: POLYETHYLENE GLYCOL (HEALTHYLAX) 3350 17 GM PACKET PO SCH ×2 (09:25→21:14)
[2023-09-24] MEDS: CLOTRIMAZOLE 1% CREAM TP SCH (09:25)
[2023-09-24] MEDS: MULTIVITAMINS (DAILY MVI) TABLET (FP) PO SCH (09:25)
[2023-09-24] MEDS: lamoTRIgine 100 MG TABLET PO SCH ×2 (09:25→21:15)
[2023-09-24] MEDS: carBAMazepine 200 MG TABLET PO SCH ×2 (09:25→21:52)
[2023-09-24] MEDS: SENNOSIDES 8.6MG TABLET (FP) PO SCH (09:25)
[2023-09-24] MEDS: CEFTRIAXONE 2 GM in DEXTROSE 5%-WATER 100 ML IVPB SCH (09:25)
[2023-09-24] MEDS: ENOXAPARIN NA (PORCINE) 40 MG/0.4 ML DISP.SYRIN SQ SCH (09:25)
[2023-09-24] MEDS: chlorproMAZINE HCL 100 MG TABLET PO SCH ×2 (09:26→21:53)
[2023-09-24] MEDS ORDERED: CEFTRIAXONE 2 GM/100 ML BAG IVPB ONE (09:33)
[2023-09-24] MEDS: VANCOMYCIN/WATER FOR INJ (PEG) 1,000 MG/250 ML BAG IVPB SCH (17:20)
[2023-09-24 20:24] VITALS: RESP 20
[2023-09-24] MEDS ORDERED: ACETAMINOPHEN 1000 MG/100 ML BAG IVPB PRN (21:12)
[2023-09-24] MEDS: DOCUSATE SODIUM 100 MG CAPSULE (FP) PO SCH (21:15)
[2023-09-25] MEDS: VANCOMYCIN/WATER FOR INJ (PEG) 1,000 MG/250 ML BAG IVPB SCH ×2 (04:08→16:41)
[2023-09-25] MEDS: clonazePAM 0.5 MG TABLET PO SCH ×3 (06:14→21:42)
[2023-09-25 09:25] LABS: HEMATOCRIT 42.4 % (32.4-45.2); HEMOGLOBIN 13.9 GM/dL (10.7-15.3); MCH 29.1 pg (25.7-33.7); MCHC 32.9 g/dl (32.0-36.0); MEAN CELL VOLUME 88.6 fl (80-96); MEAN PLT VOLUME 9.9 fl (7.5-11.1); PLATELET COUNT 247 10^3/uL (134-434); RBC 4.79 M/mm3 (3.60-5.2); RDW 13.1 % (11.6-15.6); WHITE BLOOD COUNT 8.8 K/mm3 (4.0-10.0)
[2023-09-25 09:48] LABS: POTASSIUM 3.9 mmol/L (3.5-5.1)
[2023-09-25 09:49] LABS: CALCIUM 8.9 mg/dL (8.5-10.1)
[2023-09-25 09:50] LABS: BLOOD UREA NITROGEN 11.5 mg/dL (7-18)
[2023-09-25 09:53] LABS: CREATININE 0.6 mg/dL (0.55-1.3); PHOSPHOROUS 3.3 mg/dL (2.5-4.9)
[2023-09-25] MEDS: MULTIVITAMINS (DAILY MVI) TABLET (FP) PO SCH (10:03)
[2023-09-25] MEDS: lamoTRIgine 100 MG TABLET PO SCH ×2 (10:03→21:43)
[2023-09-25] MEDS: CEFTRIAXONE 2 GM in DEXTROSE 5%-WATER 100 ML IVPB SCH (10:03)
[2023-09-25] MEDS: ENOXAPARIN NA (PORCINE) 40 MG/0.4 ML DISP.SYRIN SQ SCH (10:03)
[2023-09-25] MEDS: SENNOSIDES 8.6MG TABLET (FP) PO SCH (10:03)
[2023-09-25] MEDS: POLYETHYLENE GLYCOL (HEALTHYLAX) 3350 17 GM PACKET PO SCH ×2 (10:03→21:42)
[2023-09-25] MEDS: AMMONIUM LACTATE 12% LOTION 225 GM BOTTLE TP SCH ×2 (10:04→21:53)
[2023-09-25] MEDS: CLOTRIMAZOLE 1% CREAM TP SCH (10:05)
[2023-09-25] MEDS: chlorproMAZINE HCL 100 MG TABLET PO SCH ×2 (10:08→21:43)
[2023-09-25] MEDS: carBAMazepine 200 MG TABLET PO SCH ×2 (11:22→21:43)
[2023-09-25 15:23] VITALS: BMI 22.2
[2023-09-25] MEDS: VANCOMYCIN/WATER FOR INJ (PEG) 1,000 MG/200 ML BAG IVPB SCH (16:48)
[2023-09-25] MEDS: DOCUSATE SODIUM 100 MG CAPSULE (FP) PO SCH (21:42)
[2023-09-26] MEDS: VANCOMYCIN/WATER FOR INJ (PEG) 1,000 MG/200 ML BAG IVPB SCH (04:20)
[2023-09-26] MEDS: clonazePAM 0.5 MG TABLET PO SCH ×3 (06:21→21:34)
[2023-09-26] MEDS: POLYETHYLENE GLYCOL (HEALTHYLAX) 3350 17 GM PACKET PO SCH ×2 (09:43→21:35)
[2023-09-26] MEDS: lamoTRIgine 100 MG TABLET PO SCH ×2 (09:44→21:34)
[2023-09-26] MEDS: SENNOSIDES 8.6MG TABLET (FP) PO SCH (09:44)
[2023-09-26] MEDS: MULTIVITAMINS (DAILY MVI) TABLET (FP) PO SCH (09:44)
[2023-09-26] MEDS: ENOXAPARIN NA (PORCINE) 40 MG/0.4 ML DISP.SYRIN SQ SCH (09:44)
[2023-09-26] MEDS: CLOTRIMAZOLE 1% CREAM TP SCH (09:45)
[2023-09-26] MEDS: carBAMazepine 200 MG TABLET PO SCH ×2 (09:45→21:39)
[2023-09-26] MEDS: CEFTRIAXONE 2 GM in DEXTROSE 5%-WATER 100 ML IVPB SCH (09:46)
[2023-09-26] MEDS: chlorproMAZINE HCL 100 MG TABLET PO SCH ×2 (09:46→21:39)
[2023-09-26] MEDS: AMMONIUM LACTATE 12% LOTION 225 GM BOTTLE TP SCH ×2 (09:46→21:40)
[2023-09-26 10:18] LABS: BASO % 0.4 % (0-2.0); EOS % 4.6 % (0-4.5); HEMATOCRIT 39.5 % (32.4-45.2); HEMOGLOBIN 13.1 GM/dL (10.7-15.3); LYMPH % 21.1 % (8-40); MCH 29.4 pg (25.7-33.7); MCHC 33.1 g/dl (32.0-36.0); MEAN CELL VOLUME 88.7 fl (80-96); MEAN PLT VOLUME 9.6 fl (7.5-11.1); MONO % 11.8 % (3.8-10.2); NEUT % 62.1 % (42.8-82.8); PLATELET COUNT 231 10^3/uL (134-434); RBC 4.46 M/mm3 (3.60-5.2); WHITE BLOOD COUNT 7.4 K/mm3 (4.0-10.0)
[2023-09-26 10:24] LABS: POTASSIUM 3.7 mmol/L (3.5-5.1)
[2023-09-26 10:30] LABS: CALCIUM 9.2 mg/dL (8.5-10.1)
[2023-09-26 10:31] LABS: ALBUMIN 3.4 g/dl (3.4-5.0); BLOOD UREA NITROGEN 14.9 mg/dL (7-18); MAGNESIUM 2.1 mg/dL (1.8-2.4)
[2023-09-26 10:34] LABS: CREATININE 0.6 mg/dL (0.55-1.3); TOT PROT 6.8 g/dl (6.4-8.2)
[2023-09-26 10:35] LABS: BILIRUBIN,TOTAL 0.3 mg/dL (0.2-1)
[2023-09-26] MEDS: DOCUSATE SODIUM 100 MG CAPSULE (FP) PO SCH (21:35)
[2023-09-26] MEDS: SULFAMETHOXAZOLE/TRIMETHOPRIM 800MG/160MG D.S. TABLET PO SCH (21:45)
[2023-09-27] MEDS: clonazePAM 0.5 MG TABLET PO SCH ×3 (06:40→22:19)
[2023-09-27] MEDS: lamoTRIgine 100 MG TABLET PO SCH ×2 (09:53→22:19)
[2023-09-27] MEDS: SULFAMETHOXAZOLE/TRIMETHOPRIM 800MG/160MG D.S. TABLET PO SCH ×2 (09:53→22:19)
[2023-09-27] MEDS: SENNOSIDES 8.6MG TABLET (FP) PO SCH (09:53)
[2023-09-27] MEDS: POLYETHYLENE GLYCOL (HEALTHYLAX) 3350 17 GM PACKET PO SCH ×2 (09:55→22:20)
[2023-09-27] MEDS: CLOTRIMAZOLE 1% CREAM TP SCH (09:56)
[2023-09-27] MEDS: AMMONIUM LACTATE 12% LOTION 225 GM BOTTLE TP SCH ×2 (09:57→22:21)
[2023-09-27] MEDS: MULTIVITAMINS (DAILY MVI) TABLET (FP) PO SCH (09:58)
[2023-09-27] MEDS: ENOXAPARIN NA (PORCINE) 40 MG/0.4 ML DISP.SYRIN SQ SCH (09:58)
[2023-09-27] MEDS: chlorproMAZINE HCL 100 MG TABLET PO SCH ×2 (09:58→22:21)
[2023-09-27] MEDS: carBAMazepine 200 MG TABLET PO SCH ×2 (09:58→22:20)
[2023-09-27 11:12] LABS: BASO % 0.5 % (0-2.0); EOS % 4.2 % (0-4.5); HEMATOCRIT 40.3 % (32.4-45.2); HEMOGLOBIN 13.4 GM/dL (10.7-15.3); LYMPH % 20.9 % (8-40); MCH 29.1 pg (25.7-33.7); MCHC 33.2 g/dl (32.0-36.0); MEAN CELL VOLUME 87.8 fl (80-96); MEAN PLT VOLUME 9.7 fl (7.5-11.1); MONO % 8.6 % (3.8-10.2); NEUT % 65.8 % (42.8-82.8); PLATELET COUNT 250 10^3/uL (134-434); RBC 4.59 M/mm3 (3.60-5.2); RDW 13.3 % (11.6-15.6); WHITE BLOOD COUNT 8.6 K/mm3 (4.0-10.0)
[2023-09-27 11:53] LABS: POTASSIUM 4.1 mmol/L (3.5-5.1)
[2023-09-27 11:55] LABS: ALBUMIN 3.5 g/dl (3.4-5.0); BLOOD UREA NITROGEN 11.6 mg/dL (7-18); MAGNESIUM 2.1 mg/dL (1.8-2.4)
[2023-09-27 11:58] LABS: CREATININE 0.6 mg/dL (0.55-1.3)
[2023-09-27 12:00] LABS: BILIRUBIN,TOTAL 0.3 mg/dL (0.2-1); TOT PROT 6.9 g/dl (6.4-8.2)
[2023-09-27 12:02] LABS: CALCIUM 8.8 mg/dL (8.5-10.1)
[2023-09-27] MEDS: DOCUSATE SODIUM 100 MG CAPSULE (FP) PO SCH (22:19)
[2023-09-28] MEDS: clonazePAM 0.5 MG TABLET PO SCH (05:26)
[2023-09-28 06:02] VITALS: BP 117/67; PULSE 75; TEMP 97.9
[2023-09-28 10:25] LABS: BASO % 0.7 % (0-2.0); HEMATOCRIT 40.6 % (32.4-45.2); HEMOGLOBIN 13.6 GM/dL (10.7-15.3); LYMPH % 20.5 % (8-40); MCH 29.3 pg (25.7-33.7); MCHC 33.4 g/dl (32.0-36.0); MEAN CELL VOLUME 87.8 fl (80-96); MEAN PLT VOLUME 9.6 fl (7.5-11.1); MONO % 10.5 % (3.8-10.2); NEUT % 63.3 % (42.8-82.8); PLATELET COUNT 245 10^3/uL (134-434); RBC 4.62 M/mm3 (3.60-5.2); RDW 13.1 % (11.6-15.6); WHITE BLOOD COUNT 7.9 K/mm3 (4.0-10.0)
[2023-09-28 11:12] LABS: POTASSIUM 3.9 mmol/L (3.5-5.1)
[2023-09-28 11:29] LABS: ALBUMIN 3.4 g/dl (3.4-5.0); BLOOD UREA NITROGEN 11.8 mg/dL (7-18); MAGNESIUM 1.8 mg/dL (1.8-2.4)
[2023-09-28 11:32] LABS: CREATININE 0.7 mg/dL (0.55-1.3)
[2023-09-28 11:33] LABS: BILIRUBIN,TOTAL 0.3 mg/dL (0.2-1); TOT PROT 6.8 g/dl (6.4-8.2)
[2023-09-28] MEDS: MULTIVITAMINS (DAILY MVI) TABLET (FP) PO SCH (11:33)
[2023-09-28] MEDS: lamoTRIgine 100 MG TABLET PO SCH (11:33)
[2023-09-28] MEDS: SULFAMETHOXAZOLE/TRIMETHOPRIM 800MG/160MG D.S. TABLET PO SCH (11:34)
[2023-09-28] MEDS: ENOXAPARIN NA (PORCINE) 40 MG/0.4 ML DISP.SYRIN SQ SCH (11:34)
[2023-09-28] MEDS: POLYETHYLENE GLYCOL (HEALTHYLAX) 3350 17 GM PACKET PO SCH (11:34)
[2023-09-28] MEDS: CLOTRIMAZOLE 1% CREAM TP SCH (11:35)
[2023-09-28] MEDS: chlorproMAZINE HCL 100 MG TABLET PO SCH (11:35)
[2023-09-28] MEDS: SENNOSIDES 8.6MG TABLET (FP) PO SCH (11:35)
[2023-09-28] MEDS: AMMONIUM LACTATE 12% LOTION 225 GM BOTTLE TP SCH (11:35)
[2023-09-28] MEDS: carBAMazepine 200 MG TABLET PO SCH (11:36)
== END 2023-09-28 12:45 | disposition home or self-care (01) | DRG 383 ==
LOC: JERFT 18:55 → JERBED 09-22 01:38 → J8W 09-24 12:40
PROVIDERS: ADMIT Internal Medicine; ATTEND Nurse Practitioner Family
DX: L03.116 Cellulitis of left lower limb (principal); G40.909 Epilepsy, unspecified, not intractable, without status epilepticus; F73 Profound intellectual disabilities; R53.2 Functional quadriplegia; H54.7 Unspecified visual loss
CPT/HCPCS: 0241U-QW; 36415; 73610-TC-LT-FY; 73630-TC-LT; 80048; 80053; 81003; 82550; 83735; 84100; 84550; 85025; 85027; 85651; 86140; 87081; 87635; 93005; 93010; 93971-TC; 99285-25

== ENCOUNTER 2023-10-18 08:58 | Emergency (ER) | payer OTHER ==
[2023-10-18 09:11] VITALS: RESP 18; BMI 22.6
[2023-10-18 10:24] VITALS: BP 101/67; PULSE 74; TEMP 98.2
== END 2023-10-18 10:25 | disposition home or self-care (01) ==
LOC: JER 08:58
DX: T21.24XA Burn of second degree of lower back, initial encounter (principal); T22.152A Burn of first degree of left shoulder, initial encounter; T21.10XA Burn of first degree of trunk, unspecified site, initial encounter; T31.0 Burns involving less than 10% of body surface; X16.XXXA Contact with hot heating appliances, radiators and pipes, initial encounter; Y92.89 Other specified places as the place of occurrence of the external cause
CPT/HCPCS: 99283-25

== ENCOUNTER 2024-10-02 06:58 | Inpatient (IN) | payer OTHER ==
[2024-10-02 09:37] LABS: EPI CELLS 18 /uL (0-25.1); HYALINE CASTS 1 /uL (0-3.1); PH,URINE 5.5 (5.0-8.0); URINE APPEARANCE CLEAR; URINE BACTERIA 6 /uL (0-1359); URINE BILIRUBIN NEGATIVE (NEGATIVE); URINE COLOR DK YELLOW; URINE GLUCOSE (UA) NEGATIVE (NEGATIVE); URINE KETONE TRACE (NEGATIVE); URINE LEUK ESTERASE NEGATIVE (NEGATIVE); URINE NITRITE NEGATIVE (NEGATIVE); URINE PROTEIN 1+ (NEGATIVE); URINE RBC 22 /uL (0-23.9); URINE UROBILINOGEN 0.2 mg/dL (0.2-1.0); URINE WBC 20 /uL (0-25.8)
[2024-10-02 10:00] LABS: BASO % 0.1 % (0-2.0); EOS % 0.6 % (0-4.5); HEMATOCRIT 38.5 % (32.4-45.2); HEMOGLOBIN 12.7 GM/dL (10.7-15.3); LYMPH % 6.4 % (8-40); MCH 29.6 pg (25.7-33.7); MCHC 32.9 g/dl (32.0-36.0); MEAN CELL VOLUME 89.9 fl (80-96); MEAN PLT VOLUME 9.9 fl (7.5-11.1); MONO % 7.7 % (3.8-10.2); NEUT % 85.2 % (42.8-82.8); PLATELET COUNT 183 10^3/uL (134-434); RBC 4.28 M/mm3 (3.60-5.2); RDW 14.2 % (11.6-15.6)
[2024-10-02] MEDS ORDERED: clonazePAM 0.5 MG TABLET ONE (10:05)
[2024-10-02] MEDS ORDERED: lamoTRIgine 100 MG TABLET ONE ×2 (10:05→23:34)
[2024-10-02] MEDS ORDERED: ALBUTEROL SO4 0.083% IH SOL 2.5 MG/3 ML VIAL.NEB. NEB ONE (10:05)
[2024-10-02 10:09] LABS: VENOUS BASE EXCESS 1.5 mmol/L (-2-2); VENOUS PCO2 41.5 mmHg (38-52); VENOUS PH 7.418 (7.310-7.410)
[2024-10-02] MEDS: ALBUTEROL SO4 0.083% IH SOL 2.5 MG/3 ML VIAL.NEB. NEB ONE (10:10)
[2024-10-02] MEDS: clonazePAM 0.5 MG TABLET PO ONE (10:15)
[2024-10-02 10:19] LABS: POTASSIUM 4.2 mmol/L (3.5-5.1)
[2024-10-02 10:21] LABS: ALBUMIN 3.2 g/dl (3.4-5.0); BLOOD UREA NITROGEN 15.3 mg/dL (7-18); CALCIUM 8.8 mg/dL (8.5-10.1)
[2024-10-02 10:25] LABS: CREATININE 0.6 mg/dL (0.55-1.3)
[2024-10-02 10:26] LABS: BILIRUBIN,TOTAL 0.3 mg/dL (0.2-1); TOT PROT 6.6 g/dl (6.4-8.2)
[2024-10-02] MEDS ORDERED: AZITHROMYCIN IVPB 500 MG/250 ML BAG IVPB ONE (13:09)
[2024-10-02] MEDS ORDERED: CEFTRIAXONE 1 G/50 ML PREMIX 50 ML IVPB ONE (13:09)
[2024-10-02 13:54] LABS: INR 1.06 (0.83-1.09); PROTHROMBIN TIME (PATIENT) 12.2 SEC (9.7-13.0)
[2024-10-02 13:58] LABS: ACTIVATED PTT 37.2 SECONDS (25.2-36.5)
[2024-10-02] MEDS: AZITHROMYCIN IVPB 500 MG in DEXTROSE 5%-WATER - 250 ML IVPB ONE (14:30)
[2024-10-02] MEDS: PIPERACILLIN/TAZOB 4.5 GM 4.5 GM/100 ML BAG IVPB SCH (19:08)
[2024-10-02] MEDS: MINERAL OIL/PETROLAT/WATER TOPICAL CREAM 454 GM JAR TP SCH (23:31)
[2024-10-02] MEDS ORDERED: carBAMazepine 200 MG TABLET ONE (23:34)
[2024-10-02] MEDS ORDERED: OSELTAMIVIR PHOSPHATE 75 MG CAPSULE ONE (23:35)
[2024-10-02] MEDS ORDERED: DOCUSATE SODIUM 100 MG CAPSULE (FP) PO ONE (23:35)
[2024-10-02] MEDS ORDERED: HEPARIN NA (PORCINE) 5,000 UNITS/ML 1ML VIAL ONE (23:36)
[2024-10-02] MEDS ORDERED: PIPERACILLIN/TAZOB 4.5 GM 4.5 GM/100 ML BAG IVPB ONE (23:36)
[2024-10-02] MEDS: lamoTRIgine 100 MG TABLET PO SCH (23:39)
[2024-10-02] MEDS: DOCUSATE SODIUM 100 MG CAPSULE (FP) PO SCH (23:39)
[2024-10-02] MEDS: OSELTAMIVIR PHOSPHATE 75 MG CAPSULE PO SCH (23:39)
[2024-10-02] MEDS: HEPARIN NA (PORCINE) 5,000 UNITS/ML 1ML VIAL SQ SCH (23:39)
[2024-10-02] MEDS: chlorproMAZINE HCL 100 MG TABLET PO SCH (23:40)
[2024-10-02] MEDS: carBAMazepine 200 MG TABLET PO SCH (23:40)
[2024-10-03 05:07] VITALS: RESP 18
[2024-10-03 10:08] LABS: BASO % 0.2 % (0-2.0); EOS % 2.1 % (0-4.5); HEMATOCRIT 35.6 % (32.4-45.2); HEMOGLOBIN 12.1 GM/dL (10.7-15.3); LYMPH % 15.5 % (8-40); MCH 30.2 pg (25.7-33.7); MEAN CELL VOLUME 88.8 fl (80-96); MEAN PLT VOLUME 9.6 fl (7.5-11.1); MONO % 14.9 % (3.8-10.2); NEUT % 67.3 % (42.8-82.8); PLATELET COUNT 192 10^3/uL (134-434); RBC 4.01 M/mm3 (3.60-5.2); RDW 13.9 % (11.6-15.6); WHITE BLOOD COUNT 5.9 K/mm3 (4.0-10.0)
[2024-10-03] MEDS: CEFTRIAXONE 1 G/50 ML PREMIX 50 ML IVPB SCH (10:13)
[2024-10-03] MEDS: BISACODYL 5 MG TABLET.DR (FP) PO SCH (10:15)
[2024-10-03] MEDS: MULTIVITAMINS (DAILY MVI) TABLET (FP) PO SCH (10:15)
[2024-10-03 11:24] LABS: CALCIUM 8.7 mg/dL (8.5-10.1)
[2024-10-03 11:25] LABS: BLOOD UREA NITROGEN 11.5 mg/dL (7-18)
[2024-10-03 11:28] LABS: CREATININE 0.6 mg/dL (0.55-1.3)
[2024-10-03] MEDS: AZITHROMYCIN IVPB 250 MG in DEXTROSE 5%-WATER - 250 ML IVPB SCH (11:31)
[2024-10-03] MEDS: clonazePAM 0.5 MG TABLET PO SCH (14:16)
[2024-10-03] MEDS: DOCUSATE NA 100 MG/10 ML UNIT-DOSE CUPS PO SCH (22:22)
[2024-10-04] MEDS: PIPERACILLIN/TAZOB 4.5 GM 4.5 GM in DEXTROSE 5%-WATER 100 ML IVPB SCH (07:19)
[2024-10-04 09:18] LABS: BASO % 0.4 % (0-2.0); EOS % 4.6 % (0-4.5); HEMATOCRIT 35.9 % (32.4-45.2); HEMOGLOBIN 12.3 GM/dL (10.7-15.3); MCH 30.1 pg (25.7-33.7); MCHC 34.3 g/dl (32.0-36.0); MEAN CELL VOLUME 87.9 fl (80-96); MEAN PLT VOLUME 9.4 fl (7.5-11.1); MONO % 18.1 % (3.8-10.2); NEUT % 45.9 % (42.8-82.8); PLATELET COUNT 206 10^3/uL (134-434); RBC 4.09 M/mm3 (3.60-5.2); RDW 13.7 % (11.6-15.6); WHITE BLOOD COUNT 3.9 K/mm3 (4.0-10.0)
[2024-10-04 09:41] LABS: BLOOD UREA NITROGEN 10.9 mg/dL (7-18); CALCIUM 8.6 mg/dL (8.5-10.1); MAGNESIUM 1.9 mg/dL (1.8-2.4)
[2024-10-04 09:45] LABS: CREATININE 0.6 mg/dL (0.55-1.3); PHOSPHOROUS 3.5 mg/dL (2.5-4.9)
[2024-10-04 14:22] VITALS: BMI 22.4
[2024-10-04] MEDS: HEPARIN NA (PORCINE) 5,000 UNITS/ML 1ML VIAL SQ SCH (21:35)
[2024-10-05 10:02] LABS: BASO % 0.4 % (0-2.0); EOS % 4.5 % (0-4.5); HEMATOCRIT 39.3 % (32.4-45.2); HEMOGLOBIN 12.7 GM/dL (10.7-15.3); LYMPH % 38.5 % (8-40); MCH 29.4 pg (25.7-33.7); MCHC 32.4 g/dl (32.0-36.0); MEAN CELL VOLUME 90.7 fl (80-96); MEAN PLT VOLUME 9.4 fl (7.5-11.1); MONO % 15.6 % (3.8-10.2); PLATELET COUNT 213 10^3/uL (134-434); RBC 4.33 M/mm3 (3.60-5.2); RDW 13.6 % (11.6-15.6); WHITE BLOOD COUNT 4.8 K/mm3 (4.0-10.0)
[2024-10-05 10:43] LABS: ALBUMIN 3.4 g/dl (3.4-5.0); BLOOD UREA NITROGEN 14.2 mg/dL (7-18); CALCIUM 8.8 mg/dL (8.5-10.1)
[2024-10-05 10:44] LABS: BILIRUBIN,TOTAL 0.3 mg/dL (0.2-1)
[2024-10-05 10:45] LABS: TOT PROT 6.8 g/dl (6.4-8.2)
[2024-10-05 10:46] LABS: CREATININE 0.7 mg/dL (0.55-1.3)
[2024-10-05] MEDS: ACETAMINOPHEN 500 MG TABLET (FP) PO PRN (23:01)
[2024-10-06 09:31] LABS: BASO % 0.3 % (0-2.0); EOS % 2.5 % (0-4.5); HEMATOCRIT 41.5 % (32.4-45.2); HEMOGLOBIN 13.3 GM/dL (10.7-15.3); MCH 28.8 pg (25.7-33.7); MEAN CELL VOLUME 89.9 fl (80-96); MEAN PLT VOLUME 9.3 fl (7.5-11.1); MONO % 11.3 % (3.8-10.2); NEUT % 61.9 % (42.8-82.8); PLATELET COUNT 223 10^3/uL (134-434); RBC 4.61 M/mm3 (3.60-5.2); RDW 13.9 % (11.6-15.6); WHITE BLOOD COUNT 9.7 K/mm3 (4.0-10.0)
[2024-10-06 09:42] LABS: POTASSIUM 3.8 mmol/L (3.5-5.1)
[2024-10-06 09:48] LABS: CALCIUM 9.1 mg/dL (8.5-10.1)
[2024-10-06 09:49] LABS: ALBUMIN 3.4 g/dl (3.4-5.0); BLOOD UREA NITROGEN 19.5 mg/dL (7-18)
[2024-10-06 09:52] LABS: BILIRUBIN,TOTAL 0.5 mg/dL (0.2-1); CREATININE 0.8 mg/dL (0.55-1.3)
[2024-10-06] MEDS: BACITRACIN ZINC 15 GM TUBE TOPICAL OINTMENT TP SCH (14:23)
[2024-10-07 11:44] LABS: BASO % 0.4 % (0-2.0); EOS % 3.9 % (0-4.5); HEMOGLOBIN 12.5 GM/dL (10.7-15.3); LYMPH % 30.2 % (8-40); MCH 29.7 pg (25.7-33.7); MCHC 32.8 g/dl (32.0-36.0); MEAN CELL VOLUME 90.5 fl (80-96); MEAN PLT VOLUME 9.3 fl (7.5-11.1); MONO % 11.4 % (3.8-10.2); NEUT % 54.1 % (42.8-82.8); PLATELET COUNT 201 10^3/uL (134-434); RDW 13.4 % (11.6-15.6); WHITE BLOOD COUNT 6.2 K/mm3 (4.0-10.0)
[2024-10-07 12:58] LABS: ALBUMIN 3.2 g/dl (3.4-5.0); BLOOD UREA NITROGEN 18.4 mg/dL (7-18); CALCIUM 8.6 mg/dL (8.5-10.1); MAGNESIUM 2.1 mg/dL (1.8-2.4)
[2024-10-07 13:03] LABS: BILIRUBIN,TOTAL 0.2 mg/dL (0.2-1); CREATININE 0.8 mg/dL (0.55-1.3); TOT PROT 6.7 g/dl (6.4-8.2)
[2024-10-07] MEDS: OSELTAMIVIR PHOSPHATE 75 MG CAPSULE PO ONE (15:02)
[2024-10-07 15:22] VITALS: BP 116/66; PULSE 71; TEMP 98.2
== END 2024-10-07 15:49 | disposition home or self-care (01) | DRG 720 ==
LOC: JER 06:58 → JERBED 11:38 → J5S 10-03 01:05
PROVIDERS: ADMIT Internal Medicine; ATTEND Nurse Practitioner Family
DX: A41.9 Sepsis, unspecified organism (principal); G40.909 Epilepsy, unspecified, not intractable, without status epilepticus; J11.00 Influenza due to unidentified influenza virus with unspecified type of pneumonia; R13.10 Dysphagia, unspecified; H54.40 Blindness, one eye, unspecified eye; F73 Profound intellectual disabilities
CPT/HCPCS: 0241U-QW; 36415; 71045-TC-FY; 80048; 80053; 81003; 82803; 83605; 83735; 84100; 84484; 84703; 85025; 85610; 85730; 86850; 86900; 86901; 87040; 87086; 87899; 93005; 93010; 99285-25; J1644

== ENCOUNTER 2025-04-09 08:47 | Inpatient (IN) | payer OTHER ==
[2025-04-09 09:56] LABS: ABSOLUTE IMMATURE GRANULOCYTES 0.02 x10^3/uL (0.0-0.031); BASOPHILS # 0.02 x10^3/uL (0.01-0.08); EOSINOPHIL % 3.3 % (0.7-5.8); EOSINOPHILS # 0.18 x10^3/uL (0.04-0.36); MCHC 31.8 g/dl (32.2-35.5); MEAN CELL VOLUME 92.8 fl (79.4-94.8); MEAN PLT VOLUME 12.3 fl (9.4-12.3); MONOCYTE # 0.48 x10^3/uL (0.24-0.86); MONOCYTE % 8.9 % (4.7-12.5); RDW 14.2 % (12.2-17.1)
[2025-04-09 10:12] LABS: URINE APPEARANCE CLEAR; URINE BILIRUBIN NEGATIVE (NEGATIVE); URINE COLOR YELLOW; URINE GLUCOSE (UA) NEGATIVE (NEGATIVE); URINE KETONE NEGATIVE (NEGATIVE); URINE LEUK ESTERASE NEGATIVE (NEGATIVE); URINE NITRITE NEGATIVE (NEGATIVE); URINE PROTEIN NEGATIVE (NEGATIVE); URINE UROBILINOGEN 0.2 mg/dL (0.2-1.0)
[2025-04-09 10:45] LABS: ALK PHOS 132.0 U/L (45-117); CO2 30.0 mmol/L (21-32); CREATININE 0.5 mg/dL (0.55-1.3); GLUCOSE,RANDOM 76.0 mg/dL (74-106); SGOT/AST 28.0 U/L (15-37); SGPT/ALT 61.0 U/L (13-61); TOT PROT 6.9 g/dl (6.4-8.2)
[2025-04-10] MEDS ORDERED: SENNOSIDES 8.6MG TABLET (FP) PO ONE (00:57)
[2025-04-10] MEDS: SENNOSIDES 8.6MG TABLET (FP) PO SCH ×2 (01:16→21:23)
[2025-04-10] MEDS: POLYETHYLENE GLYCOL (HEALTHYLAX) 3350 17 GM PACKET PO SCH ×2 (05:03→21:24)
[2025-04-10 07:08] LABS: ABSOLUTE IMMATURE GRANULOCYTES 0.05 x10^3/uL (0.0-0.031); BASOPHILS # 0.01 x10^3/uL (0.01-0.08); EOSINOPHIL % 1.3 % (0.7-5.8); EOSINOPHILS # 0.14 x10^3/uL (0.04-0.36); MCHC 32.0 g/dl (32.2-35.5); MEAN CELL VOLUME 92.4 fl (79.4-94.8); MEAN PLT VOLUME 13.0 fl (9.4-12.3); MONOCYTE # 0.58 x10^3/uL (0.24-0.86); MONOCYTE % 5.4 % (4.7-12.5); RDW 14.0 % (12.2-17.1)
[2025-04-10 07:12] LABS: INR 0.96 (0.83-1.09); PROTHROMBIN TIME (PATIENT) 10.5 SEC (9.7-13.0)
[2025-04-10 07:13] LABS: CO2 28.0 mmol/L (21-32); GLUCOSE,RANDOM 85.0 mg/dL (74-106)
[2025-04-10 07:15] LABS: ACTIVATED PTT 46.6 SECONDS (25.2-36.5); SGPT/ALT 64.0 U/L (13-61)
[2025-04-10 07:16] LABS: CREATININE 0.6 mg/dL (0.55-1.3); SGOT/AST 26.0 U/L (15-37)
[2025-04-10 07:17] LABS: TOT PROT 7.3 g/dl (6.4-8.2)
[2025-04-10 07:24] LABS: ALK PHOS 162.0 U/L (45-117)
[2025-04-10] MEDS ORDERED: amLODIPine BESYLATE 5 MG TABLET (FP) ONE (10:20)
[2025-04-10] MEDS ORDERED: ENOXAPARIN NA (PORCINE) 40 MG/0.4 ML DISP.SYRIN SQ ONE (10:21)
[2025-04-10] MEDS: BISACODYL 5 MG TABLET.DR (FP) PO SCH (10:31)
[2025-04-10] MEDS: ENOXAPARIN NA (PORCINE) 40 MG/0.4 ML DISP.SYRIN SQ SCH (10:32)
[2025-04-10] MEDS: amLODIPine BESYLATE 5 MG TABLET (FP) PO SCH (10:32)
[2025-04-10] MEDS: MINERAL OIL ENEMA 133 ML ENEMA RC ONE (16:44)
[2025-04-10] MEDS: PIPERACILLIN/TAZOB 3.375 GM 3.375 GM in DEXTROSE 5%-WATER - 50 ML IVPB SCH (18:07)
[2025-04-10] MEDS ORDERED: POLYETHYLENE GLYCOL (HEALTHYLAX) 3350 17 GM PACKET PO SCH (22:00)
[2025-04-11 09:33] LABS: ABSOLUTE IMMATURE GRANULOCYTES 0.05 x10^3/uL (0.0-0.031); BASOPHILS # 0.02 x10^3/uL (0.01-0.08); EOSINOPHIL % 1.1 % (0.7-5.8); EOSINOPHILS # 0.13 x10^3/uL (0.04-0.36); MCHC 32.2 g/dl (32.2-35.5); MEAN CELL VOLUME 92.0 fl (79.4-94.8); MEAN PLT VOLUME 12.4 fl (9.4-12.3); MONOCYTE # 1.36 x10^3/uL (0.24-0.86); MONOCYTE % 12.0 % (4.7-12.5); RDW 14.1 % (12.2-17.1)
[2025-04-11 10:17] LABS: CO2 28.0 mmol/L (21-32); GLUCOSE,RANDOM 78.0 mg/dL (74-106)
[2025-04-11 10:20] LABS: CREATININE 0.7 mg/dL (0.55-1.3); SGOT/AST 19.0 U/L (15-37); SGPT/ALT 49.0 U/L (13-61)
[2025-04-11 10:22] LABS: TOT PROT 7.0 g/dl (6.4-8.2)
[2025-04-11 10:23] LABS: ALK PHOS 147.0 U/L (45-117)
[2025-04-11] MEDS: ENOXAPARIN NA (PORCINE) 40 MG/0.4 ML DISP.SYRIN SQ SCH (10:23)
[2025-04-11] MEDS: BISACODYL 5 MG TABLET.DR (FP) PO SCH (10:24)
[2025-04-11] MEDS: amLODIPine BESYLATE 5 MG TABLET (FP) PO SCH (10:24)
[2025-04-11 13:23] VITALS: BMI 25.2
[2025-04-11] MEDS: PIPERACILLIN/TAZOB 3.375 GM 3.375 GM in DEXTROSE 5%-WATER - 50 ML IVPB SCH ×2 (17:37→17:55)
[2025-04-12 07:57] LABS: ABSOLUTE IMMATURE GRANULOCYTES 0.04 x10^3/uL (0.0-0.031); BASOPHILS # 0.02 x10^3/uL (0.01-0.08); EOSINOPHIL % 3.0 % (0.7-5.8); EOSINOPHILS # 0.28 x10^3/uL (0.04-0.36); MCHC 31.6 g/dl (32.2-35.5); MEAN CELL VOLUME 91.9 fl (79.4-94.8); MEAN PLT VOLUME 12.1 fl (9.4-12.3); MONOCYTE # 1.19 x10^3/uL (0.24-0.86); MONOCYTE % 12.9 % (4.7-12.5); RDW 14.0 % (12.2-17.1)
[2025-04-12 08:24] LABS: CO2 29.0 mmol/L (21-32); GLUCOSE,RANDOM 87.0 mg/dL (74-106)
[2025-04-12 08:25] LABS: CREATININE 0.7 mg/dL (0.55-1.3); SGPT/ALT 42.0 U/L (13-61)
[2025-04-12 08:27] LABS: TOT PROT 7.1 g/dl (6.4-8.2)
[2025-04-12 08:28] LABS: ALK PHOS 141.0 U/L (45-117); SGOT/AST 15.0 U/L (15-37)
[2025-04-12] MEDS ORDERED: LORazepam 4 MG/1 ML VIAL IVPUSH ONE ×2 (09:49→11:30)
[2025-04-12] MEDS: ALBUTEROL SO4 2.5/IPRATROPIUM 0.5 INH SOL 3 ML VIAL.NEB. NEB SCH (12:00)
[2025-04-13 14:59] VITALS: BP 101/61; PULSE 82; RESP 20; TEMP 98.7
== END 2025-04-13 18:20 | disposition home or self-care (01) | DRG 139 ==
LOC: JER 08:47 → JERBED 11:41 → OBSVTOIN 13:00 → J7W 04-10 15:06
PROVIDERS: ADMIT Student in an Organized Health Care Education/Training Program; ATTEND Family Medicine
DX: J18.9 Pneumonia, unspecified organism (principal); D69.6 Thrombocytopenia, unspecified; T68.XXXA Hypothermia, initial encounter; E03.9 Hypothyroidism, unspecified; F79 Unspecified intellectual disabilities; G40.909 Epilepsy, unspecified, not intractable, without status epilepticus; G80.9 Cerebral palsy, unspecified; I10 Essential (primary) hypertension; X58.XXXA Exposure to other specified factors, initial encounter; Y93.9 Activity, unspecified; Y92.89 Other specified places as the place of occurrence of the external cause; Y99.9 Unspecified external cause status
CPT/HCPCS: 36415; 71045-TC-FY; 71250-TC; 74176-TC; 76705-TC; 80053; 81003; 82533; 82977; 83605; 83735; 84080; 84439; 84443; 84484; 85025; 85610; 85730; 87040; 87070; 87077; 87086; 87205; 87637-QW; 87899; 93005; 93010; 93306-TC; 94640; 95816; 99285-25; G0378